=== PATIENT | female | born 1970 | race Caucasian/White ===

== ENCOUNTER → 2017-06-08 13:11 | Outpatient (POV) | payer BC, SELFPAY ==
[2017-06-08 13:23] VITALS: BP 145/100; PULSE 67; RESP 18; BMI 28.4
--- NOTE | 2017-06-08 13:26 | P.CONS_ITS ---
[facility] Pain Management SOAP Note Subjective:: This patient is a pleasant 47-year-old white female who we are treating for low back pain with lumbar radiculopathy symptoms. He recently had a lumbar sacral steroid injection which has helped her significantly as far as her pain and pain. She still has low back pain which is worse with cold weather. She is on tramadol which was given to her by Dr. Mirza. We will be happy to take over her tramadol and prescribe her tramadol 50 mg 1 tablet 3 times a day. I will give her 2 refills. Objective:: Alert and oriented ?3 patient does have a normal gait. Motor strength of the lower extremities is 5/5. There is no gross sensory deficit. 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 I will give her 2 refills. We will follow up with her in 3 months. If her pain worsens between now and then and she needs a repeat injection she is to call us in the pain clinic
--- NOTE | 2017-08-31 12:09 | PC.PHONENOTE ---
called in Rx for Tramadol HCL 50mg TID with 2 refills to [facility] pharmacy in [place]
== END ==
PROVIDERS: Family Provider Family Medicine; PCP Family Medicine; Visit Provider Anesthesiology
DX: M51.16 Intervertebral disc disorders with radiculopathy, lumbar region (principal)
CPT/HCPCS: 99212

== ENCOUNTER → 2017-09-06 14:00 | Outpatient (POV) | payer BC, SELFPAY ==
[2017-09-06 14:12] VITALS: BP 155/88; PULSE 66; RESP 18; O2SAT 97; BMI 38.9
--- NOTE | 2017-09-06 14:37 | HMH.PAINSOAP ---
[facility] Pain Management SOAP Note Subjective:: This patient is a pleasant 47-year-old white female who presents today for follow-up. Patient has had SI joint injections and lumbar epidural steroid injections with significant relief in the past. Patient is following up as an as-needed basis. Patient states that she receives up to 80% relief for SI joint injections for several months. She is interested in getting another round of SI joint injections. Patient is also being managed on tramadol 50 mg 1 p.o. 3 times daily. Patient denies side effects from this. Patient states she is doing well on her current regimen. 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 Patient states her pain is a 6 out of 10 today. She states it gets worse as the day goes on. She does sometimes have shooting pains in her legs. Resting seems to help. ROS General: no recent weight change, no fever, no sleep disturbances Respiratory: no cough, no shortness of air, no recurring pulmonary infections Cardiovascular/Peripheral Vascular: No chest pain, No palpitations, no edema, no shortness of breath. Gastrointestinal: no incontinence, normal bowel movements reported Genitourinary: no incontinence Musculoskeletal: Back pain, bilateral SI joint pain Psychiatric: normal mood/ affect, [denies depression], [denies anxiety] Neurological: [denies weakness in extremities], [denies balance issues] Objective:: Physical Exam General: Alert and oriented x3, no acute distress, pleasant and cooperative, [on room air] Lungs: Resps E/U, Symmetrical chest expansion, Eyes: PERRL Musculoskeletal: Flexion and extension of lumbar spine somewhat guarded secondary to pain, deep tendon reflexes normal, strength in upper and lower extremities [5/5], slightly antalgic gait noted, positive Rojas's test bilaterally, extreme point tenderness over bilateral SI joints. Neurological: speech clear, senior sustainability consultant equal, no gross sensory deficits Assessment:: Degenerative disc disease of the lumbar spine with lumbar radiculopathy and sacroiliitis Plan:: We will plan bilateral SI joint injections for this patient. She has done well with them in the past. Patient has tried and failed physical therapy, medications, anti-inflammatories. Patient is not on any anticoagulation. Patient is currently being managed with tramadol 50 mg 1 p.o. 3 times daily. Patient's Maynor #[id number] reviewed and appropriate. This note was dictated using voice recognition software and may contain errors or omissions
--- NOTE | 2017-09-06 14:41 | P.CONS_ITS ---
[facility] Pain Management SOAP Note Subjective:: This patient is a pleasant 47-year-old white female who presents today for follow-up. Patient has had SI joint injections and lumbar epidural steroid injections with significant relief in the past. Patient is following up as an as-needed basis. Patient states that she receives up to 80% relief for SI joint injections for several months. She is interested in getting another round of SI joint injections. Patient is also being managed on tramadol 50 mg 1 p.o. 3 times daily. Patient denies side effects from this. Patient states she is doing well on her current regimen. 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 Patient states her pain is a 6 out of 10 today. She states it gets worse as the day goes on. She does sometimes have shooting pains in her legs. Resting seems to help. ROS General: no recent weight change, no fever, no sleep disturbances Respiratory: no cough, no shortness of air, no recurring pulmonary infections Cardiovascular/Peripheral Vascular: No chest pain, No palpitations, no edema, no shortness of breath. Gastrointestinal: no incontinence, normal bowel movements reported Genitourinary: no incontinence Musculoskeletal: Back pain, bilateral SI joint pain Psychiatric: normal mood/ affect, [denies depression], [denies anxiety] Neurological: [denies weakness in extremities], [denies balance issues] Objective:: Physical Exam General: Alert and oriented x3, no acute distress, pleasant and cooperative, [ on room air] Lungs: Resps E/U, Symmetrical chest expansion, Eyes: PERRL Musculoskeletal: Flexion and extension of lumbar spine somewhat guarded secondary to pain, deep tendon reflexes normal, strength in upper and lower extremities [5/5], slightly antalgic gait noted, positive Rojas's test bilaterally, extreme point tenderness over bilateral SI joints. Neurological: speech clear, laboratory apparatus glass grinder equal, no gross sensory deficits Assessment:: Degenerative disc disease of the lumbar spine with lumbar radiculopathy and sacroiliitis Plan:: We will plan bilateral SI joint injections for this patient. She has done well with them in the past. Patient has tried and failed physical therapy, medications, anti-inflammatories. Patient is not on any anticoagulation. Patient is currently being managed with tramadol 50 mg 1 p.o. 3 times daily. Patient's Maynor #[id number] reviewed and appropriate. This note was dictated using voice recognition software and may contain errors or omissions
== END ==
PROVIDERS: Family Provider Family Medicine; PCP Family Medicine; Visit Provider Clinical Nurse Specialist Family Health
DX: M54.16 Radiculopathy, lumbar region (principal); M46.1 Sacroiliitis, not elsewhere classified
CPT/HCPCS: 99212

== ENCOUNTER 2017-09-15 04:27 | Observation (INO) ==
[2017-09-15 04:52] LABS: Basophils # 0.1 K/mm3 (0-0.2); Basophils % 0.7 % (0.1-2.0); Eosinophils # 0.1 K/mm3 (0.0-0.4); Hematocrit 45.3 % (37.0-47.0); Hemoglobin 14.6 g/dL (12.2-16.2); Lymphocytes # 3.6 K/mm3 (0.7-4.5); Lymphocytes % 49.7 K/mm3 (10-50); Mean Corpuscular HGB Conc 32.3 g/dL (31.8-35.4); Mean Corpuscular Hemoglobin 30.2 pg (27.0-31.2); Mean Corpuscular Volume 93.3 fl (81-99); Mean Platelet Volume 7.3 fl (7.4-10.4); Monocytes # 0.3 K/mm3 (0.1-1.0); Monocytes % 3.6 % (1.7-9.3); Neutrophils # 3.2 K/mm3 (1.8-7.8); Platelet Count 342 K/mm3 (142-424); Red Blood Count 4.86 M/mm3 (4.20-5.40); Red Cell Distribution Width 11.9 % (11.5-17.5); White Blood Count 7.2 K/mm3 (4.8-10.8)
[2017-09-15 05:15] LABS: Alanine Aminotransferase 38 U/L (12-78); Albumin Level 3.9 gm/dL (3.4-5.0); Alkaline Phosphatase 79 U/L (46-116); Anion Gap 12.2 mEq/L (5-15); Aspartate Amino Transferase 24 U/L (15-37); Bilirubin,Total 0.6 mg/dL (0.2-1.0); Blood Urea Nitrogen 19 mg/dL (7-18); Calcium 8.9 mg/dL (8.5-10.1); Carbon Dioxide 29 mmol/L (21.0-32.0); Chloride 105 mmol/L (98-107); Creatine Kinase 184 U/L (26-192); Globulin 3.8 gm/dl (1.3-3.2); Glucose 110 mg/dL (74-106); Potassium 4.2 mmoL/L (3.5-5.1); Sodium 142 mmol/L (136-145); Total Protein,Serum 7.7 gm/dL (6.4-8.2)
--- NOTE | 2017-09-15 06:16 | Emergency Department Note ---
ED Disposition Clinical Impression: Chest pain Qualifiers: Chest pain type: precordial pain Qualified Code(s): R07.2 - Precordial pain Disposition: Admitted as Observation Condition on Discharge: Good - Critical Care Critical Care Time: No Attestation: On 09/15/17, the high probability of a clinically significant, sudden or life threatening deterioration of the following system(s) required my full and direct attention, intervention and personal management. The time I documented below is in addition to time spent performing reported procedures but includes the following listed in this critical care notation. Medical Decision Making - Medical Records Medical records reviewed: Yes: I reviewed the patient's medical records. - Maynor Inquiry Pt receiving controlled substance: No Vital Signs: 09/15/17 04:29 09/15/17 05:46 09/15/17 06:28 Temperature 98 F Temperature Source Oral Pulse Rate [Right Brachial] 78 73 72 Respiratory Rate 20 14 16 Blood Pressure [Right Arm] 155/98 156/82 154/107 Blood Pressure Mean [Right Arm] 117 106 122 Blood Pressure Source [Right Arm] Automatic Cuff Automatic Cuff Automatic Cuff Blood Pressure Position [Right Arm] Supine Sitting Sitting 02 Sat by Pulse Oximetry 100 96 97 Oxygen Delivery Method Room Air Room Air Room Air - Lab Data Lab results reviewed: Yes: I reviewed the patient's lab results. Lab Results 09/15/17 04:38: WBC 7.2, RBC 4.86, Hgb 14.6, Hct 45.3, MCV 93.3, MCH 30.2, MCHC 32.3, RDW 11.9, Plt Count 342, MPV 7.3 L, Neut % (Auto) 44.0, Lymph % (Auto) 49.7, [place] % (Auto) 3.6, Eos % (Auto) 2.0, Baso % (Auto) 0.7, Neut # (Auto) 3.2 , Lymph # (Auto) 3.6, [place] # (Auto) 0.3, Eos # (Auto) 0.1, Baso # (Auto) 0.1 09/15/17 04:38: Sodium 142, Potassium 4.2, Chloride 105, Carbon Dioxide 29, Anion Gap 12.2, BUN 19 H, Creatinine 0.88, Estimated Creat Clear 119, Estimated GFR 68, Est GFR ( Amer) 83, Glucose 110 H, Calcium 8.9, Total Bilirubin 0.6, AST 24, ALT 38, Alkaline Phosphatase 79, Total Creatine Kinase 184, CK-MB ( CK-2) 1.4, CK-MB (CK-2) Rel Index 0.8, Troponin I < 0.02, Total Protein 7.7, Albumin 3.9, Globulin 3.8 H, Albumin/Globulin Ratio 1.0 L Result diagrams: 09/15/17 04:38 09/15/17 04:38 Orders (Tests/Meds): ED MEDICATIONS Generic Name Dose Route Start Last Admin Trade Name Freq PRN Reason Stop Dose Admin Nitroglycerin 0.4 mg 09/15/17 06:24 09/15/17 04:41 Nitrostat 0.4mg Sl Tablet SL 10/15/17 06:23 0.4 mg [id number] PRN Administration Chest Pain Discontinued Medications Generic Name Dose Route Start Last Admin Trade Name Freq PRN Reason Stop Dose Admin Aspirin 324 mg 09/15/17 06:24 09/15/17 04:40 Aspirin 81mg Chewable Tablet PO 09/15/17 06:25 324 mg ONCE ONE Administration Nitroglycerin 1 gm 09/15/17 06:20 09/15/17 06:26 Nitroglycerin 1 Inch Oint Udp TD 09/15/17 06:21 1 gm ONCE ONE Administration - Radiology Data #1 Image(s): Chest Image Reviewed: Yes I reviewed the patient's radiology image Preliminary Findings: Normal/NAD - ECG Data Tracing #1 I reviewed this ECG and interpreted as documented below: Normal Sinus Rhythm: Yes Ischemic changes: non-specific ST-T wave changes - Physician Consults Physician Consulted: coopre Reason -: Admission Chest Pain HPI - General Chief Complaint: Chest Pain Stated Complaint: CHEST PAIN Time Seen by Provider: 09/15/17 04:45 Mode of Arrival: Ambulatory Source of Information: Patient, Spouse, Medical Record Limitations: No Limitations Description of Symptoms (Recalled from ER Triage Doc. by RN): TIGHTNESS OF L CHEST - History of Present Illness HPI narrative: new onset of chest tightness with rad to lt upper ext with no known hx of cad MD complaint: chest pain indicative of cardiac Onset (ago): day(s) Duration: now resolved Activity at onset: awoke with symptoms Pain location: left chest Severity: moderate Quality: tightness Pain radiation: LUE Relieving factors: nitroglycerin Associated symptoms: dyspnea Risk Factors for CAD: Hypertension, Family Hx of CAD Treatments prior to or on arrival for Cardiac Chest Pain: none - YAHAIRA Score Non-Stemi Age of patient: Less than 65 yrs Number of risk factors for CAD: Presence of 3 or more Prior coronary artery stenosis(seen in coronary angiography): Less than 50% ST-Segment deviation on ECG (more than 1 min): Absent Prior aspirin intake: No ASA in the last 7 days Severe anginal chest pain: Two or more episodes in last 24 hours Elevated cardiac markers(CK-MB or troponin): Absent Non-Stemi Risk Score: 2 - Related Data On Oral Contraceptives: No Home Medications Medication Instructions Recorded Confirmed Tramadol HCl [Ultram Take Home 50 mg PO DIRECTED 09/06/17 09/15/17 Pack 50mg (10)] Allergies Allergy/AdvReac Type Severity Reaction Status Date / Time No Known Allergies Allergy Unverified 05/25/17 15:[address] [facility] History I have reviewed the patient's past medical history: Yes Medical History: Denies:: Cancer, Diabetes Mellitus Type 1, Diabetes Mellitus Type 2, Internal Pacemaker, MRSA Other Surgeries: No: Pacemaker Amputation: No - Social History Educational Level: Completed College Smoking Status: Never smoker Alcohol Intake: never - Psychiatric History Expresses thoughts of harming self/others: None Suicide Plan Description: No Plan Para: 2 ROS Obtained: Yes All systems reviewed & no additional complaints - Constitutional Constitutional: Denies fever(s) - Eyes Eyes: Denies change in vision - ENT Ears, Nose, Mouth, and Throat: Denies sore throat - Cardiovascular Cardiovascular: Reports chest pain at rest, Reports radiating jaw, neck or arm pain - Respiratory Respiratory: No cough - Gastrointestinal Gastrointestingal: Denies: abdominal pain - Genitourinary Female Genitourinary: Denies flank pain - Musculoskeletal Musculoskeletal: Denies joint pain - Integumentary/Breasts Skin/Breast: Denies rash - Neurologic Neurologic: Denies seizure-like activity Physical Exam - General General appearance: in no apparent distress - Head Head exam: normocephalic - Eye Eye exam: Present: PERRL, EOMI - ENT ENT exam: Present: mucous membranes moist - Neck Neck exam: Present: trachea midline - Respiratory Respiratory exam: Present: normal lung sounds bilaterally. Absent: respiratory distress - Cardiovascular Cardiovascular exam: Present: regular rate, systolic murmur - Abdominal Exam Abdominal exam: Present: soft - Neurological Exam Neurological exam: Present: alert, oriented X3, CN II-XII intact - Skin Skin exam: Absent: rash
--- NOTE | 2017-09-15 08:30 | History & Physical Report ---
*Admission Date: 09/15/17 <Farzana Win 09/15/17 08:41> *Chief complaint: chest pain <Farzana Win 09/15/17 08:41> *History of present illness: Ms. Mays is a 47yo female who began having midsternal CP with left arm numbness and tingling two days ago during the night. She states Wednesday night it lasted a few hours and resolved on its own. Last night it returned at 3am and lasted 3-4 hours, therefore she presented to the ER. She states she was having chest palpitations and some SOA along with the CP. She has been having a SEE and some heartburn as well. She is concerned that her zoloft may be causing these symptoms. She states she was just started on it on 09/07/17 and these symptoms started when she increased the dose to a whole tablet. She will be admitted for serial enzymes and EKG's and a cardiology consult has been made by the ER. <Farzana Win 09/15/17 08:41> [facility] History Medical History: Reports:: Hypertension, Migraine Denies:: Cancer, Diabetes Mellitus Type 1, Diabetes Mellitus Type 2, Internal Pacemaker, MRSA <Farzana Win 09/15/17 08:41> Other Surgeries: Yes: , Tubal Ligation. No: Pacemaker <Farzana Win 09/15/17 08:41> Amputation: No <Farzana Win 09/15/17 08:41> - *Social History Educational Level: Completed College <Farzana Win 09/15/17 08:41> Smoking Status: Never smoker <Farzana Win 09/15/17 08:41> Alcohol Intake: never <Farzana Win 09/15/17 08:41> - Psychiatric History Expresses thoughts of harming self/others: None <Farzana Win 09/15/17 08: 41> Suicide Plan Description: No Plan <Farzana Win 09/15/17 08:41> *Family Hx:: Cancer, Hypertension <Farzana Win 09/15/17 08:41> Para: 2 <Farzana Win 09/15/17 08:41> Review of Systems - Constitutional Reports headache(s), Denies body ache(s), Denies chills, Denies fever(s) < Farzana Win 09/15/17 08:41> - Eyes Denies blurry vision, Denies double vision <Farzana Win 09/15/17 08:41> - ENT Denies nasal congestion, Denies sore throat <Farzana Win 09/15/17 08:41> - *Cardiovascular Reports chest pain, Reports shortness of breath, Reports radiating jaw, neck or arm pain, Reports fast heart rate <Farzana Win 09/15/17 08:41> - *Respiratory Reports shortness of breath, Denies cough <Farzana Win 09/15/17 08:41> - *Gastrointestinal Reports heartburn, Denies abdominal pain, Denies loose stools, Denies nausea, Denies vomiting <Farzana Win 09/15/17 08:41> - *Genitourinary Denies difficulty urinating, Denies painful urination <Farzana Win 08:41> - *Musculoskeletal Denies joint pain <Farzana Win 09/15/17 08:41> - *Neurologic Reports headache(s), Reports dizziness, Denies seizure-like activity <Farzana Win 09/15/17 08:41> Meds Home Medications Medication Instructions Recorded Confirmed Type Tramadol HCl [Ultram Take Home 50 mg PO TIDP PRN 09/06/17 09/15/17 History Pack 50mg (10)] Bisoprol/Hydrochlorothiazide 1 tab PO DAILY 09/15/17 09/15/17 History [Bisoprolol-Hctz 2.5-6.25 mg Tb] Meloxicam [Meloxicam] 15 mg PO DAILY 09/15/17 09/15/17 History Sertraline HCl [Zoloft 50mg tablet] 50 mg PO DAILY 09/15/17 09/15/17 History <Shamar Mirza - 09/15/17 09:33> Allergies Allergy/AdvReac Type Severity Reaction Status Date / Time No Known Allergies Allergy Unverified 05/25/17 15:01 <Shamar Mirza - 09/15/17 09:33> Exam Vital signs and Labs for Last 24 Hours: Temp Pulse Resp BP Pulse Ox 97.8 F 82 18 121/79 97 09/15/17 07:28 09/15/17 07:28 09/15/17 07:28 09/15/17 07:28 09/15/17 06:28 <OdellShamar garrido - 09/15/17 09:33> Temp Pulse Resp BP Pulse Ox 97.8 F 82 18 121/79 97 09/15/17 07:28 09/15/17 07:28 09/15/17 07:28 09/15/17 07:28 09/15/17 06:28 Lab Results 09/15/17 04:38: WBC 7.2, RBC 4.86, Hgb 14.6, Hct 45.3, MCV 93.3, MCH 30.2, MCHC 32.3, RDW 11.9, Plt Count 342, MPV 7.3 L, Neut % (Auto) 44.0, Lymph % (Auto) 49.7, [place] % (Auto) 3.6, Eos % (Auto) 2.0, Baso % (Auto) 0.7, Neut # (Auto) 3.2 , Lymph # (Auto) 3.6, [place] # (Auto) 0.3, Eos # (Auto) 0.1, Baso # (Auto) 0.1 09/15/17 04:38: Sodium 142, Potassium 4.2, Chloride 105, Carbon Dioxide 29, Anion Gap 12.2, BUN 19 H, Creatinine 0.88, Estimated Creat Clear 119, Estimated GFR 68, Est GFR ( Amer) 83, Glucose 110 H, Calcium 8.9, Total Bilirubin 0.6, AST 24, ALT 38, Alkaline Phosphatase 79, Total Creatine Kinase 184, CK-MB ( CK-2) 1.4, CK-MB (CK-2) Rel Index 0.8, Troponin I < 0.02, Total Protein 7.7, Albumin 3.9, Globulin 3.8 H, Albumin/Globulin Ratio 1.0 L <Farzana Win - 09/15/17 08:41> I & O for Last 24 hours: Intake & Output 09/12/17 09/13/17 09/14/17 09/15/17 11:59 11:59 11:59 11:59 Intake Total 1050 / 1050 Balance 1050 / 1050 Weight 215 lb <Shamar Mirza - 09/15/17 09:33> Intake & Output 09/12/17 09/13/17 09/14/17 09/15/17 11:59 11:59 11:59 11:59 Intake Total 1050 / 1050 Balance 1050 / 1050 <Farzana Win 09/15/17 08:41> - Constitutional no acute distress <Farzana Win 09/15/17 08:41> - *Routine HEENT Exam Head: Present: normocephalic, atraumatic <Farzana Win 09/15/17 08:41> Eye: Present: EOMI, PERRL <Farzana Win 09/15/17 08:41> ENT: Present: mucous membranes moist <Farzana Win 09/15/17 08:41> - *Routine Neck Exam Present: supple, full ROM. Absent: carotid bruit <Farzana Win 09/15/17 08 :41> - *Routine Respiratory Exam Present: CTA bilaterally <Farzana Win 09/15/17 08:41> - *Routine Cardiovascular Exam Present: RRR <Farzana Win 09/15/17 08:41> - *Routine Abdominal Exam Present: soft, normoactive bowel sounds. Absent: tenderness <Farzana Win 09/15/17 08:41> - *Routine Extremities Exam Absent: edema <Farzana Win 09/15/17 08:41> - *Routine Skin Exam Present: intact <Farzana Win 09/15/17 08:41> - *Routine Neurological Exam Present: alert, oriented X3, CN II-XII intact. Absent: sensory deficit, motor deficit <Farzana Win 09/15/17 08:41> H&P: Result - Impressions CXR - nothing acute Echo - pending <Farzana Win 09/15/17 08:41> Assessment and Plan (1) Chest pain Current visit: Yes Status: Acute Qualifiers: Chest pain type: precordial pain Qualified Code(s): R07.2 - Precordial pain Category: Medical Code(s): R07.9 - Chest pain, unspecified (2) Hypertension Current visit: Yes Status: Chronic Category: Medical Code(s): I10 - Essential (primary) hypertension (3) Anxiety Current visit: Yes Status: Chronic Category: Medical Code(s): F41.9 - Anxiety disorder, unspecified <Shamar Mirza - 09/15/17 09:33> (1) Chest pain Current visit: Yes Status: Acute Qualifiers: Chest pain type: precordial pain Qualified Code(s): R07.2 - Precordial pain Category: Medical Code(s): R07.9 - Chest pain, unspecified (2) Hypertension Current visit: Yes Status: Chronic Category: Medical Code(s): I10 - Essential (primary) hypertension (3) Anxiety Current visit: Yes Status: Chronic Category: Medical Code(s): F41.9 - Anxiety disorder, unspecified <Farzana Win - 09/15/17 08:22> - Assessment and plan all Dx Assessment and Plan for all problems:: Saw patient, agree with above note. <Shamar Mirza - 09/15/17 09:33> Pt is currently getting an echo. Cardiology has been consulted. <Farzana Win - 09/15/17 08:41>
--- NOTE | 2017-09-15 08:31 | Pharmacy Consult Notes ---
[facility] Pharmacy VTE Monitoring - Patient Demographics Admission date: 09/15/17 Report Date: 09/15/17 Time: 08:31 Allergies/Adverse Reactions: Patient Allergies No Known Allergies Allergy (Unverified 05/25/17 15:01) Height: 1.6 m Weight: 97.522 kg Patient Problems: Current Active Problems Chest pain (Acute) - VTE Risk Labs: VTE Related Lab Results Hgb 14.6 g/dL (12.2-16.2) 09/15/17 04:38 Hct 45.3 % (37.0-47.0) 09/15/17 04:38 Plt Count 342 K/mm3 (142-424) 09/15/17 04:38 BUN 19 mg/dL (7-18) H 09/15/17 04:38 Creatinine 0.88 mg/dL (0.55-1.02) 09/15/17 04:38 Estimated Creat Clear 119 mL/min (0-300) 09/15/17 04:38 Clinical Trial Participant: No - Prophylaxis VTE Prophylaxis Ordered?: Yes Types of VTE Prophylaxis: TEDS Knee High
--- NOTE | 2017-09-15 10:03 | Consult Report ---
History of Present Illness Consult date: 09/15/17 Requesting physician: Shamar Mirza Consult reason: chest pain Chief complaint: chest pain Additional Medical History:: 1. Hypertension History of present illness: Ms. Mays is a 47yo female who began having midsternal CP with left arm numbness and tingling two days ago during the night. She states Wednesday night it lasted a few hours and resolved on its own. Last night it returned at 3am and lasted 3-4 hours, therefore she presented to the ER. She states she was having chest palpitations and some SOA along with the CP. She has been having a SEE and some heartburn as well. She is concerned that her zoloft may be causing these symptoms. She states she was just started on it on 09/07/17 and these symptoms started when she increased the dose to a whole tablet. She will be admitted for serial enzymes and EKG's and a cardiology consult has been made by the ER. The above per Farzana Win PA-C for Dr. Mirza. Patient denies history of diabetes, hyperlipidemia, tobacco use or significant family history of heart disease. Has any recent exertional chest pain or shortness of breath. She does have a history of hypertension and takes bisoprolol 2.5 with 6.25 mg of hydrochlorothiazide daily. [facility] History Medical History: Reports:: Hypertension, Migraine Denies:: Cancer, Diabetes Mellitus Type 1, Diabetes Mellitus Type 2, Internal Pacemaker, MRSA Other Surgeries: Yes: , Tubal Ligation. No: Pacemaker Amputation: No Fractures: No - *Social History Educational Level: Completed College Smoking Status: Never smoker Alcohol Intake: never Occupational Status: employed Housing: house Household Members: spouse, children - Psychiatric History Expresses thoughts of harming self/others: None Suicide Plan Description: No Plan *Family Hx:: Cancer, Hypertension Para: 2 Meds Home Medications Medication Instructions Recorded Confirmed Type Tramadol HCl [Ultram Take Home 50 mg PO TIDP PRN 09/06/17 09/15/17 History Pack 50mg (10)] Bisoprol/Hydrochlorothiazide 1 tab PO DAILY 09/15/17 09/15/17 History [Bisoprolol-Hctz 2.5-6.25 mg Tb] Meloxicam [Meloxicam] 15 mg PO DAILY 09/15/17 09/15/17 History Sertraline HCl [Zoloft 50mg tablet] 50 mg PO DAILY 09/15/17 09/15/17 History Allergies Allergy/AdvReac Type Severity Reaction Status Date / Time No Known Allergies Allergy Unverified 05/25/17 15:01 Review of Systems - *Cardiovascular Reports chest pain, Denies shortness of breath - *Respiratory Denies shortness of breath - *Gastrointestinal Reports nausea - *Neurologic Reports headache(s), Reports dizziness, Denies seizure-like activity Exam Vital signs and Labs for Last 24 Hours: Temp Pulse Resp BP Pulse Ox 97.7 F 80 20 102/68 97 09/15/17 09:33 09/15/17 09:33 09/15/17 09:33 09/15/17 09:33 09/15/17 09:33 I & O for Last 24 hours: Intake & Output 09/12/17 09/13/17 09/14/17 09/15/17 11:59 11:59 11:59 11:59 Intake Total 1050 / 1050 Balance 1050 / 1050 Weight 215 lb - *Routine Neck Exam Absent: JVD, carotid bruit - *Routine Respiratory Exam Present: CTA bilaterally - *Routine Cardiovascular Exam Present: RRR. Absent: murmur, gallop - *Routine Extremities Exam Absent: edema - *Routine Neurological Exam Present: alert, oriented X3, moving all extremities Assessment and Plan (1) Chest pain Current visit: Yes Status: Acute Qualifiers: Chest pain type: precordial pain Qualified Code(s): R07.2 - Precordial pain Category: Medical Code(s): R07.9 - Chest pain, unspecified (2) Hypertension Current visit: Yes Status: Chronic Category: Medical Code(s): I10 - Essential (primary) hypertension (3) Anxiety Current visit: Yes Status: Chronic Category: Medical Code(s): F41.9 - Anxiety disorder, unspecified - Assessment and plan all Dx Assessment and Plan for all problems:: 1. Patient has received a headache from the nitroglycerin. I will remove the nitroglycerin paste. Her troponin has returned normal thus far and the EKG shows no evidence of acute coronary syndrome. Preliminary echocardiogram shows preserved left ventricular ejection fraction. Patient's YAHAIRA score is 1 and would recommend proceeding with stress Myoview today. She has received some Zofran which has helped with the nausea.
[2017-09-16 06:47] LABS: Basophils % 0.5 % (0.1-2.0); Eosinophils # 0.1 K/mm3 (0.0-0.4); Eosinophils % 1.4 % (0.1-12.0); Hematocrit 42.8 % (37.0-47.0); Hemoglobin 14.1 g/dL (12.2-16.2); Lymphocytes # 2.4 K/mm3 (0.7-4.5); Lymphocytes % 31.8 K/mm3 (10-50); Mean Corpuscular Hemoglobin 30.8 pg (27.0-31.2); Mean Corpuscular Volume 93.2 fl (81-99); Mean Platelet Volume 7.3 fl (7.4-10.4); Monocytes # 0.3 K/mm3 (0.1-1.0); Monocytes % 4.2 % (1.7-9.3); Neutrophils # 4.8 K/mm3 (1.8-7.8); Neutrophils % 62.1 % (37.0-80.0); Platelet Count 322 K/mm3 (142-424); Red Blood Count 4.59 M/mm3 (4.20-5.40); Red Cell Distribution Width 11.9 % (11.5-17.5); White Blood Count 7.7 K/mm3 (4.8-10.8)
[2017-09-16 06:56] LABS: Anion Gap 13.2 mEq/L (5-15); Chol/HDL Ratio 3.1 (1-3.5); Potassium 4.2 mmoL/L (3.5-5.1)
--- NOTE | 2017-09-16 12:25 | Progress Note ---
<Farzana Win - Last Filed: 09/16/17 12:24> Internal Medicine - PN: Subj *Date: 09/16/17 *Time: 12:24 Interval history: Patient states she is feeling well at this time. She had a heart cath this morning that showed normal coronaries. She denies any chest pain or shortness of breath. She is anxious to go home. Exam Vital signs and Labs for Last 24 Hours: Temp Pulse Resp BP Pulse Ox 98.5 F 66 16 137/84 96 09/16/17 04:00 09/16/17 09:24 09/16/17 09:24 09/16/17 09:24 09/16/17 09:24 Laboratory Results - last 24 hr 09/16/17 06:10: WBC 7.7, RBC 4.59, Hgb 14.1, Hct 42.8, MCV 93.2, MCH 30.8, MCHC 33.0, RDW 11.9, Plt Count 322, MPV 7.3 L, Neut % (Auto) 62.1, Lymph % (Auto) 31.8, [place] % (Auto) 4.2, Eos % (Auto) 1.4, Baso % (Auto) 0.5, Neut # (Auto) 4.8 , Lymph # (Auto) 2.4, [place] # (Auto) 0.3, Eos # (Auto) 0.1, Baso # (Auto) 0.0 09/16/17 06:10: Sodium 142, Potassium 4.2, Chloride 107, Carbon Dioxide 26, Anion Gap 13.2, BUN 16, Creatinine 1.02, Estimated Creat Clear 103, Estimated GFR 58 L, Est GFR ( Amer) 70, Glucose 111 H, Magnesium 1.9, Triglycerides 138, Cholesterol 199, LDL Cholesterol 106, VLDL Cholesterol 28, HDL Cholesterol 65, Cholesterol/HDL Ratio 3.1 I & O for Last 24 hours: Intake & Output 09/14/17 09/15/17 09/16/17 09/17/17 11:59 11:59 11:59 11:59 Intake Total 1290 / 1290 1209 / 1209 Output Total 400 / 400 Balance 1290 / 1290 809 / 809 Weight 215 lb - Constitutional no acute distress - *Routine Respiratory Exam Present: CTA bilaterally - *Routine Cardiovascular Exam Present: RRR - *Routine Abdominal Exam Present: soft, normoactive bowel sounds. Absent: tenderness - *Routine Extremities Exam Absent: edema Assessment and Plan (1) Chest pain Current visit: Yes Status: Acute Qualifiers: Chest pain type: precordial pain Qualified Code(s): R07.2 - Precordial pain Category: Medical Code(s): R07.9 - Chest pain, unspecified (2) Hypertension Current visit: Yes Status: Chronic Category: Medical Code(s): I10 - Essential (primary) hypertension (3) Anxiety Current visit: Yes Status: Chronic Category: Medical Code(s): F41.9 - Anxiety disorder, unspecified - Assessment and plan all Dx Assessment and Plan for all problems:: Heart cath was normal. Possible discharge home today. Will discuss with Dr. Mirza. <Shamar Mirza - Last Filed: 09/16/17 12:56> Internal Medicine - PN: Subj *Date: 09/16/17 *Time: 12:55 Exam Vital signs and Labs for Last 24 Hours: Temp Pulse Resp BP Pulse Ox 98.5 F 66 16 137/84 96 09/16/17 04:00 09/16/17 09:24 09/16/17 09:24 09/16/17 09:24 09/16/17 09:24 Laboratory Results - last 24 hr 09/16/17 06:10: WBC 7.7, RBC 4.59, Hgb 14.1, Hct 42.8, MCV 93.2, MCH 30.8, MCHC 33.0, RDW 11.9, Plt Count 322, MPV 7.3 L, Neut % (Auto) 62.1, Lymph % (Auto) 31.8, [place] % (Auto) 4.2, Eos % (Auto) 1.4, Baso % (Auto) 0.5, Neut # (Auto) 4.8 , Lymph # (Auto) 2.4, [place] # (Auto) 0.3, Eos # (Auto) 0.1, Baso # (Auto) 0.0 09/16/17 06:10: Sodium 142, Potassium 4.2, Chloride 107, Carbon Dioxide 26, Anion Gap 13.2, BUN 16, Creatinine 1.02, Estimated Creat Clear 103, Estimated GFR 58 L, Est GFR ( Amer) 70, Glucose 111 H, Magnesium 1.9, Triglycerides 138, Cholesterol 199, LDL Cholesterol 106, VLDL Cholesterol 28, HDL Cholesterol 65, Cholesterol/HDL Ratio 3.1 I & O for Last 24 hours: Intake & Output 09/14/17 09/15/17 09/16/17 09/17/17 11:59 11:59 11:59 11:59 Intake Total 1290 / 1290 1209 / 1209 Output Total 400 / 400 Balance 1290 / 1290 809 / 809 Weight 215 lb Assessment and Plan (1) Chest pain Current visit: Yes Status: Resolved Qualifiers: Chest pain type: precordial pain Qualified Code(s): R07.2 - Precordial pain Category: Medical Code(s): R07.9 - Chest pain, unspecified (2) Hypertension Current visit: Yes Status: Chronic Category: Medical Code(s): I10 - Essential (primary) hypertension (3) Anxiety Current visit: Yes Status: Chronic Category: Medical Code(s): F41.9 - Anxiety disorder, unspecified - Assessment and plan all Dx Assessment and Plan for all problems:: Saw patient, agree with above note. OK to discharge home today.
[2017-09-16 14:16] VITALS: BP 148/91
--- NOTE | 2017-09-16 16:47 | Cardiology Report ---
PROCEDURE: 2-D M-mode and color Doppler study INDICATIONS FOR THE TEST: Chest pain+ COPD Heart Murmur Tobacco Smoking Palpitations+ Fatigue+ Syncope Edema Hypertension+Diabetes Mellitus Rheumatic Fever SOB MONTES Obesity Hyperlipidemia Family History HD Additional History chest pressure radiating down left arm, dizziness PATIENT INFORMATION HEIGHT: 63 WEIGHT: 215 GENDER: Female B/P: 155/98 2-D/M-MODE INTERPRETATION: 2-D MEASUREMENTS OBSERVED VALUES IN CMS Right Ventricular Dimension (RVDd) 2.3 Interventricular Septum (Thickness)(IVsd) 1.1 Left Ventricular Internal Dimensions(LVIDd) 4.8 Left Ventricular Posterior Wall (Thickness)(LVPWd) 1.0 Aortic Root 2.7 Aortic Cusp Separation 2.0 Left Atrial Dimensions (LAD) 3.5 2D 1. The left atrium is mildly enlarged, left ventricle is normal size, visually estimated ejection fraction 55% with no obvious regional wall motion abnormality. 2. The right ventricle are normal size and contractility. 3. The aortic valve is minimally thickened and fibrosed. 4. The mitral and tricuspid valve are grossly normal. 5. The pulmonic valve is poorly visualized. 6. No significant pericardial effusion noted. DOPPLER INTERROGATION: Doppler interrogation of the aortic, mitral and tricuspid valve reveals presence of mild mitral and tricuspid regurgitation, tricuspid and jet is insufficient for calculation of the right ventricular systolic pressure, diastolic parameters are inconclusive. CONCLUSION: 1. Mildly enlarged left atrium, normal left ventricular size, visually estimated ejection fraction 55% with no obvious regional wall motion abnormality, diastolic parameters are inconclusive. 2. Mild mitral and tricuspid regurgitation 3. No significant pericardial effusion noted.
--- NOTE | 2017-09-16 20:53 | Discharge Summary ---
General - General Admission date: 09/15/17 Discharge date: 09/16/17 HPI HPI: Ms. Mays is a 47yo female who began having midsternal CP with left arm numbness and tingling two days ago during the night. She states Wednesday night it lasted a few hours and resolved on its own. Last night it returned at 3am and lasted 3-4 hours, therefore she presented to the ER. She states she was having chest palpitations and some SOA along with the CP. She has been having a SEE and some heartburn as well. She is concerned that her zoloft may be causing these symptoms. She states she was just started on it on 09/07/17 and these symptoms started when she increased the dose to a whole tablet. She will be admitted for serial enzymes and EKG's and a cardiology consult has been made by the ER. Hospital Course Hospital Course: The patient's echo showed an EF of 55%. Cardiology ordered a stress test and it showed a normal LVEF with reverse redistribution of the paul-septal area. In light of the abnormal stress test, cardiology recommended a heart cath. The patient had the heart cath and it showed normal coronaries. Her CP resolved and she was anxious to go home. She was stable to be discharged home on her normal home medications and will f/u in the office. Objective Vital signs: Temp Pulse Resp BP Pulse Ox 97.1 F L 68 18 148/91 99 09/16/17 13:15 09/16/17 13:15 09/16/17 13:15 09/16/17 13:15 09/16/17 09:45 Narrative: - Constitutional no acute distress - *Routine HEENT Exam Head: Present: normocephalic, atraumatic Eye: Present: EOMI, PERRL ENT: Present: mucous membranes moist - *Routine Neck Exam Present: supple, full ROM. Absent: carotid bruit - *Routine Respiratory Exam Present: CTA bilaterally - *Routine Cardiovascular Exam Present: RRR - *Routine Abdominal Exam Present: soft, normoactive bowel sounds. Absent: tenderness - *Routine Extremities Exam Absent: edema - *Routine Skin Exam Present: intact - *Routine Neurological Exam Present: alert, oriented X3, CN II-XII intact. Absent: sensory deficit, motor deficit Results Labs on day of discharge: Labs from last 24 hours 09/16/17 09/16/17 06:10 06:10 WBC 7.7 RBC 4.59 Hgb 14.1 Hct 42.8 MCV 93.2 MCH 30.8 MCHC 33.0 RDW 11.9 Plt Count 322 MPV 7.3 L Neut % (Auto) 62.1 Lymph % (Auto) 31.8 [place] % (Auto) 4.2 Eos % (Auto) 1.4 Baso % (Auto) 0.5 Neut # (Auto) 4.8 Lymph # (Auto) 2.4 [place] # (Auto) 0.3 Eos # (Auto) 0.1 Baso # (Auto) 0.0 Sodium 142 Potassium 4.2 Chloride 107 Carbon Dioxide 26 Anion Gap 13.2 BUN 16 Creatinine 1.02 Estimated Creat Clear 103 Estimated GFR 58 L Est GFR ( Amer) 70 Glucose 111 H Magnesium 1.9 Triglycerides 138 Cholesterol 199 LDL Cholesterol 106 VLDL Cholesterol 28 HDL Cholesterol 65 Cholesterol/HDL Ratio 3.1 DS: Diagnosis - Discharge Diagnosis (1) Chest pain Status: Resolved (2) Hypertension Status: Chronic (3) Anxiety Status: Chronic Discharge Plan - Patient Discharge Instructions ACTIVITY: Continue current activity (needs post cath restrictions) DIET: continue same diet Additional Instructions: Continue same diet and activity. Patient Instructions: High Blood Pressure, DI for Cardiac Catheterization - Follow up Plan Follow up with: Shamar Mirza MD [Primary Care Provider] - 09/21/17 Disposition: Home, Self-Detention Medications: Home Medications Medication Instructions Recorded Confirmed Type Tramadol HCl [Ultram Take Home 50 mg PO TIDP PRN 09/06/17 09/15/17 History Pack 50mg (10)] Bisoprol/Hydrochlorothiazide 1 tab PO DAILY 09/15/17 09/15/17 History [Bisoprolol-Hctz 2.5-6.25 mg Tb] Meloxicam 15 mg PO DAILY 09/15/17 09/15/17 History Sertraline HCl [Zoloft 50mg tablet] 50 mg PO DAILY 09/15/17 09/15/17 History Prescriptions/Medication Reconciliation: Continue Tramadol HCl [Ultram Take Home Pack 50mg (10)] 50 mg PO TIDP PRN PRN Reason: PAIN Sertraline HCl [Zoloft 50mg tablet] 50 mg PO DAILY Bisoprol/Hydrochlorothiazide [Bisoprolol-Hctz 2.5-6.25 mg Tb] 1 tab PO DAILY Meloxicam 15 mg PO DAILY
== END 2017-09-16 13:50 | disposition home or self-care (01) ==
LOC: ER 04:27 → ICU 04:27 → 2ND 08:49
PROVIDERS: ADMIT Family Medicine; ATTEND Family Medicine

== ENCOUNTER → 2017-10-11 14:31 | Outpatient (POV) | payer BC, SELFPAY | PROVIDERS: Family Provider Family Medicine; PCP Family Medicine; Visit Provider Specialist | DX: R20.0 Anesthesia of skin (principal) | CPT/HCPCS: 95886; 95909 ==

== ENCOUNTER → 2017-10-18 14:16 | Outpatient (POV) | payer BC, SELFPAY ==
[2017-10-18 14:25] VITALS: BP 144/74; PULSE 63; RESP 18; O2SAT 99; BMI 36.0
--- NOTE | 2017-10-18 15:38 | HMH.PAINSOAP ---
[facility] Pain Management SOAP Note Subjective:: Is a pleasant 47-year-old white female we are treating for bilateral hip and back pain. Patient is status post bilateral SI joint injection. Patient states she is 90% better. Patient states that she is having some low back pain. Patient is interested in getting a lumbar epidural steroid injection. Patient has had these in the past with 80-90% relief for several months. Patient is interested in doing this in the future. She rates her pain a foreign today. Patient also takes tramadol 50 mg 1 p.o. 3 times daily. Patient's MAJOR #[id number] reviewed and appropriate. Patient denies any side effects to the medication. ROS General: no recent weight change, no fever, no sleep disturbances Respiratory: no cough, no shortness of air, no recurring pulmonary infections Cardiovascular/Peripheral Vascular: No chest pain, No palpitations, no edema, no shortness of breath. Gastrointestinal: no incontinence, normal bowel movements reported Genitourinary: no incontinence Musculoskeletal: Bilateral SI joint pain, low back pain Psychiatric: normal mood/ affect Neurological: [denies weakness in extremities], [denies balance issues] Objective:: Physical Exam General: Alert and oriented x3, no acute distress, pleasant and cooperative, [on room air] Lungs: Resps E/U, Symmetrical chest expansion, Eyes: PERRL Musculoskeletal: Flexion and extension of lumbar spine somewhat guarded secondary to pain, deep tendon reflexes normal, strength in upper and lower extremities [5/5], antalgic gait noted, positive straight leg raise test at 30? 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 Patient has gotten 80% relief from it for several months previously. Patient is still doing a home stretching regimen. Patient's tried and failed medications, anti-inflammatories. This note was dictated using voice recognition software and may contain errors or omissions
--- NOTE | 2017-10-18 15:41 | P.CONS_ITS ---
[facility] Pain Management SOAP Note Subjective:: Is a pleasant 47-year-old white female we are treating for bilateral hip and back pain. Patient is status post bilateral SI joint injection. Patient states she is 90% better. Patient states that she is having some low back pain. Patient is interested in getting a lumbar epidural steroid injection. Patient has had these in the past with 80-90% relief for several months. Patient is interested in doing this in the future. She rates her pain a foreign today. Patient also takes tramadol 50 mg 1 p.o. 3 times daily. Patient 's MAJOR #[id number] reviewed and appropriate. Patient denies any side effects to the medication. ROS General: no recent weight change, no fever, no sleep disturbances Respiratory: no cough, no shortness of air, no recurring pulmonary infections Cardiovascular/Peripheral Vascular: No chest pain, No palpitations, no edema, no shortness of breath. Gastrointestinal: no incontinence, normal bowel movements reported Genitourinary: no incontinence Musculoskeletal: Bilateral SI joint pain, low back pain Psychiatric: normal mood/ affect Neurological: [denies weakness in extremities], [denies balance issues] Objective:: Physical Exam General: Alert and oriented x3, no acute distress, pleasant and cooperative, [ on room air] Lungs: Resps E/U, Symmetrical chest expansion, Eyes: PERRL Musculoskeletal: Flexion and extension of lumbar spine somewhat guarded secondary to pain, deep tendon reflexes normal, strength in upper and lower extremities [5/5], antalgic gait noted, positive straight leg raise test at 30? 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 Patient has gotten 80% relief from it for several months previously. Patient is still doing a home stretching regimen. Patient's tried and failed medications, anti- inflammatories. This note was dictated using voice recognition software and may contain errors or omissions
== END ==
PROVIDERS: Family Provider Family Medicine; PCP Family Medicine; Visit Provider Clinical Nurse Specialist Family Health
DX: M54.16 Radiculopathy, lumbar region (principal)
CPT/HCPCS: 99212

== ENCOUNTER → 2017-11-29 11:04 | Outpatient (POV) | payer BC, SELFPAY ==
[2017-11-29 11:52] VITALS: BP 140/67; PULSE 70; RESP 18; TEMP 36.4; O2SAT 96; BMI 38.0
--- NOTE | 2017-11-29 12:08 | P.CONS_ITS ---
[facility] Pain Management SOAP Note Subjective:: Patient is a pleasant 47-year-old white female who presents today for follow-up after lumbar epidural steroid injection. Patient states she is 90% better. Patient is having a little bit of SI issues however she is doing well at this time. 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 I believe given the efficacy of these injections for her this would be beneficial. Patient is currently on tramadol 50 mg 1 p.o. 3 times daily. She denies any side effects to this. Patient's MAJOR reviewed and appropriate. Patient states that after these injections he gets up to 2 months relief. Patient is still doing home stretching exercises. Patient is not on any anticoagulation therapy. ROS General: no recent weight change, no fever, no sleep disturbances Respiratory: no cough, no shortness of air, no recurring pulmonary infections Cardiovascular/Peripheral Vascular: No chest pain, No palpitations, no edema, no shortness of breath. Gastrointestinal: no incontinence, normal bowel movements reported Genitourinary: no incontinence Musculoskeletal: Bilateral SI joint pain, low back pain Psychiatric: normal mood/ affect Neurological: [denies weakness in extremities], [denies balance issues] Objective:: Physical Exam General: Alert and oriented x3, no acute distress, pleasant and cooperative, [ on room air] Lungs: Resps E/U, Symmetrical chest expansion, Eyes: PERRL Musculoskeletal: Flexion and extension of lumbar spine somewhat guarded secondary to pain, deep tendon reflexes normal, strength in upper and lower extremities [5/5], antalgic gait noted. 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 I believe that this would be beneficial. Patient gets up to 90% relief for several months with these injections. Patient is still doing a home stretching regimen. Patient's tried and failed anti- inflammatories and medications. I will follow-up with this patient after her injections. Patient's been instructed to call the office if she has any issues prior to this. This note was dictated using voice recognition software and may contain errors or omissions
--- NOTE | 2017-12-06 11:56 | PC.NURSE ---
TRAMADOL 50MG TID WITH 2 REFILLS CALLED INTO [facility] [place]
== END ==
PROVIDERS: Family Provider Family Medicine; PCP Family Medicine; Visit Provider Clinical Nurse Specialist Family Health
DX: M46.1 Sacroiliitis, not elsewhere classified (principal)
CPT/HCPCS: 99212

== ENCOUNTER → 2018-01-24 14:57 | Outpatient (POV) | payer BC, SELFPAY ==
[2018-01-24 15:25] VITALS: BP 128/66; PULSE 73; RESP 18; O2SAT 97; BMI 38.9
--- NOTE | 2018-01-24 15:56 | P.CONS_ITS ---
[facility] Pain Management SOAP Note Subjective:: Patient is a pleasant 47-year-old white female who we are treating for low back pain and bilateral hip pain. Patient rates her pain a 0 out of 10 today. Patient does well with epidural injections as well. Patient would like to schedule an epidural injection for May believe that that would be beneficial. ROS General: no recent weight change, no fever, no sleep disturbances Respiratory: no cough, no shortness of air, no recurring pulmonary infections Cardiovascular/Peripheral Vascular: No chest pain, No palpitations, no edema, no shortness of breath. Gastrointestinal: no incontinence, normal bowel movements reported Genitourinary: no incontinence Musculoskeletal: Back pain, bilateral SI joint pain Psychiatric: normal mood/ affect Neurological: [denies weakness in extremities], [denies balance issues] Objective:: Physical Exam General: Alert and oriented x3, no acute distress, pleasant and cooperative, [ on room air] Lungs: Resps E/U, Symmetrical chest expansion, Eyes: PERRL Musculoskeletal: Flexion and extension of lumbar spine somewhat guarded secondary to pain, deep tendon reflexes normal, strength in upper and lower extremities [5/5], [abnormal gait noted], bilateral Rojas's test positive Neurological: 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 We will also schedule her bilateral SI joint injection to follow that several weeks later. Patient gets at least 90% relief of her symptoms for several months. I believe that this would be beneficial. Patient's been instructed to call the office if she has any issues prior to next appointment. Patient is not on any anticoagulation therapy. This note was dictated using voice recognition software and may contain errors or omissions
== END ==
PROVIDERS: Family Provider Family Medicine; PCP Family Medicine; Visit Provider Clinical Nurse Specialist Family Health
DX: M51.16 Intervertebral disc disorders with radiculopathy, lumbar region (principal); M46.1 Sacroiliitis, not elsewhere classified
CPT/HCPCS: 99213

== ENCOUNTER → 2018-06-20 14:12 | Outpatient (POV) | payer BC, SELFPAY ==
[2018-06-20 14:26] VITALS: BP 109/49; PULSE 58; RESP 18; O2SAT 98; BMI 38.9
--- NOTE | 2018-06-20 14:35 | HMH.PAINSOAP ---
[facility] Pain Management SOAP Note Subjective:: Is a pleasant 48-year-old white female who presents today for follow-up after bilateral SI joint injections. Patient is doing extremely well rating her pain a 0 out of 10 today. Patient is on tramadol 50 mg 1 tab p.o. 3 times daily as needed. She denies side effects to this. Maynor reviewed and appropriate. ROS General: no recent weight change, no fever, no sleep disturbances Respiratory: no cough, no shortness of air, no recurring pulmonary infections Cardiovascular/Peripheral Vascular: No chest pain, No palpitations, no edema, no shortness of breath. Gastrointestinal: no incontinence, normal bowel movements reported Genitourinary: no incontinence Musculoskeletal: Back pain, SI joint pain Psychiatric: normal mood/ affect Neurological: [denies weakness in extremities], [denies balance issues] Objective:: Physical Exam General: Alert and oriented x3, no acute distress, pleasant and cooperative, [on room air] Lungs: Resps E/U, Symmetrical chest expansion, Eyes: PERRL Musculoskeletal: Flexion and extension of lumbar spine somewhat guarded secondary to pain, deep tendon reflexes normal, strength in upper and lower extremities [5/5], normal gait noted Neurological: speech clear, eligibility manager equal, no gross sensory deficits Assessment:: degenerative disc disease lumbar spine with lumbar radiculopathy and sacroiliitis Plan:: We will follow-up with the patient in 3 months and reassess her symptoms at that time. Patient is going to call us if she has any issues prior to her next appointment. This note was dictated using voice recognition software and may contain errors or omissions
== END ==
PROVIDERS: PCP Family Medicine; Visit Provider Clinical Nurse Specialist Family Health
DX: M51.16 Intervertebral disc disorders with radiculopathy, lumbar region (principal); M46.1 Sacroiliitis, not elsewhere classified
CPT/HCPCS: 99213

== ENCOUNTER → 2018-09-27 14:10 | Outpatient (POV) | payer BC, SELFPAY ==
[2018-09-27 14:30] VITALS: BP 136/64; PULSE 64; RESP 18; O2SAT 98; BMI 38.9
--- NOTE | 2018-09-27 15:47 | HMH.PAINSOAP ---
[facility] Pain Management SOAP Note Subjective:: Patient is a very pleasant 48-year-old white female who presents today for follow-up. Patient still doing quite well she rates her pain a 3 out of 10. Patient states she is going to be traveling some and she has some concerns about her SI joint pain. Patient would like to set up an injection here in the future she is gotten 80% relief up to for 5 months. 50 mg 1 p.o. 3 times daily as needed she denies any side effects. She is having some numbness and tingling we will put her on some gabapentin 100 mg p.o. nightly. Maynor reviewed and appropriate. ROS General: no recent weight change, no fever, no sleep disturbances Respiratory: no cough, no shortness of air, no recurring pulmonary infections Cardiovascular/Peripheral Vascular: No chest pain, No palpitations, no edema, no shortness of breath. Gastrointestinal: no incontinence, normal bowel movements reported Genitourinary: no incontinence Musculoskeletal: SI joint pain Psychiatric: normal mood/ affect Neurological: [denies weakness in extremities], [denies balance issues] Objective:: Physical Exam General: Alert and oriented x3, no acute distress, pleasant and cooperative, [on room air] Lungs: Resps E/U, Symmetrical chest expansion, Eyes: PERRL Musculoskeletal: Flexion and extension of lumbar spine somewhat guarded secondary to pain, deep tendon reflexes normal, strength in upper and lower extremities [5/5], slightly antalgic gait noted, positive Ed's test, positive thigh thrust test, positive SI joint compression test bilaterally Neurological: speech clear, auto bench mechanic equal, no gross sensory deficits Assessment:: Sacroiliitis Plan:: We will continue her tramadol 50 mg 1 tab p.o. 3 times daily we will also start on gabapentin 100 mg 1 p.o. nightly. Patient has been instructed to call the office if she has any issues prior to her next appointment we will set her up for bilateral SI joint injections. Dr. Sr has reviewed this note and agrees with this plan of care. This note was dictated using voice recognition software and may contain errors or omissions
== END ==
PROVIDERS: PCP Family Medicine; Visit Provider Clinical Nurse Specialist Family Health
DX: M46.1 Sacroiliitis, not elsewhere classified (principal)
CPT/HCPCS: 99212

== ENCOUNTER → 2018-11-07 12:39 | Outpatient (POV) | payer BC, SELFPAY ==
[2018-11-07 12:51] VITALS: BP 142/69; PULSE 63; RESP 18; O2SAT 98; BMI 38.9
--- NOTE | 2018-11-07 13:12 | HMH.PAINSOAP ---
[facility] Pain Management SOAP Note Subjective:: Patient is a pleasant 48-year-old white female who presents today lateral SI joint injections. She reports that she had 100% relief with the injections. She reports her pain is 0 out of 10 today. When patient has pain, it is generally bilateral hips radiating to her legs. The patient is continuing a home stretching program. She is currently on tramadol 80 mg 3 times a day and gabapentin 100 mg nightly. ROS General: no recent weight change, no fever, no sleep disturbances Respiratory: no cough, no shortness of air, no recurring pulmonary infections Cardiovascular/Peripheral Vascular: No chest pain, No palpitations, no edema, no shortness of breath. Gastrointestinal: no incontinence, normal bowel movements reported Genitourinary: no incontinence Musculoskeletal: Back pain, leg pain Psychiatric: normal mood/ affect, [denies depression], [denies anxiety] Neurological: [denies weakness in extremities], [denies balance issues] Objective:: Physical Exam General: Alert and oriented x3, no acute distress, pleasant and cooperative, [on room air] Lungs: Resps E/U, Symmetrical chest expansion, Eyes: PERRL Musculoskeletal: Flexion and extension of her spine spine somewhat guarded secondary to pain, deep tendon reflexes normal, strength in upper and lower extremities [5/5], normal gait noted. Neurological: speech clear, toll relief operator equal, no gross sensory deficits Assessment:: Sacroiliitis Plan:: We will continue the patient on her tramadol 50 mg 1 p.o. 3 times daily and gabapentin 100 mg p.o. at night. She will also continue home stretching program. The patient wishes to call the office at a later time to schedule a follow-up appointment. She is been instructed to call the office if she has any issues prior to her next appointment. Maynor #[id number] is been reviewed and is appropriate. Dr. Sr has reviewed this note and agrees with this plan of care. This note was dictated using voice recognition software and may contain errors or omissions
--- NOTE | 2018-11-07 13:16 | P.CONS_ITS ---
[facility] Pain Management SOAP Note Subjective:: Patient is a pleasant 48-year-old white female who presents today lateral SI joint injections. She reports that she had 100% relief with the injections. She reports her pain is 0 out of 10 today. When patient has pain, it is generally bilateral hips radiating to her legs. The patient is continuing a home stretching program. She is currently on tramadol 80 mg 3 times a day and gabapentin 100 mg nightly. ROS General: no recent weight change, no fever, no sleep disturbances Respiratory: no cough, no shortness of air, no recurring pulmonary infections Cardiovascular/Peripheral Vascular: No chest pain, No palpitations, no edema, no shortness of breath. Gastrointestinal: no incontinence, normal bowel movements reported Genitourinary: no incontinence Musculoskeletal: Back pain, leg pain Psychiatric: normal mood/ affect, [denies depression], [denies anxiety] Neurological: [denies weakness in extremities], [denies balance issues] Objective:: Physical Exam General: Alert and oriented x3, no acute distress, pleasant and cooperative, [on room air] Lungs: Resps E/U, Symmetrical chest expansion, Eyes: PERRL Musculoskeletal: Flexion and extension of her spine spine somewhat guarded secondary to pain, deep tendon reflexes normal, strength in upper and lower extremities [5/5], normal gait noted. Neurological: speech clear, manager functional equal, no gross sensory deficits Assessment:: Sacroiliitis Plan:: We will continue the patient on her tramadol 50 mg 1 p.o. 3 times daily and gabapentin 100 mg p.o. at night. She will also continue home stretching program. The patient wishes to call the office at a later time to schedule a follow-up appointment. She is been instructed to call the office if she has any issues prior to her next appointment. Maynor #[id number] is been reviewed and is appropriate. Dr. Sr has reviewed this note and agrees with this plan of care. This note was dictated using voice recognition software and may contain errors or omissions
--- NOTE | 2019-01-16 11:06 | PC.NURSE ---
TRAMADOL TID WITH 2 REFILLS 50MG CALLED INTO [facility] PER PROVIDER ORDER
--- NOTE | 2019-04-21 16:15 | PC.NURSE ---
TRAMADOL 50MG TID CALLED INTO [facility] WITH 2 REFILLS PER PROVIDER ORDER
== END ==
PROVIDERS: PCP Family Medicine; Visit Provider Clinical Nurse Specialist Family Health
DX: M46.1 Sacroiliitis, not elsewhere classified (principal)
CPT/HCPCS: 99212

== ENCOUNTER 2019-04-04 16:56 | Outpatient (CLI) | payer BC, SELFPAY ==
[2019-04-04 17:30] VITALS: BP 115/69; PULSE 58; RESP 20; TEMP 36.7; O2SAT 98
[2019-04-04 18:15] VITALS: BMI 38.9
[2019-04-04 19:12] VITALS: BP 115/69; PULSE 58; RESP 20; TEMP 36.7; O2SAT 98
== END 2019-04-04 19:12 | disposition home or self-care (01) ==
PROVIDERS: PCP Family Medicine; Visit Provider Family Medicine
DX: E86.0 Dehydration (principal); N39.0 Urinary tract infection, site not specified
CPT/HCPCS: 96360

== ENCOUNTER → 2019-07-24 14:03 | Outpatient (POV) | payer BC, SELFPAY ==
--- NOTE | 2019-07-24 14:23 | HMH.PAINSOAP ---
[facility] Pain Management SOAP Note Subjective:: Patient is a pleasant 49-year-old white female who presents today for follow-up. Patient recently underwent bilateral SI joint injections for which she did get 100% relief. She does continue to have some intermittent pain in her low back with radiation into her bilateral hips. She does say, however, she is not having any pain today. She rates her pain a 0 out of 10. She is currently managed with tramadol 80 mg 1 tablet p.o. 3 times daily and gabapentin 100 mg 1 tablet p.o. at bedtime. Patient says that she has not gotten any relief with her gabapentin. She is having some numbness and tingling in her bilateral hands. She says the pain is worse at night and in the morning upon wakening. She has undergone a nerve conduction study that was unremarkable. She has not had any imaging of her cervical spine at this time. She does continue with a home stretching program and anti-inflammatories. Review of Systems General: No recent weight changes, no fever, no sleep disturbances Respiratory: No cough, no shortness of air, no recurring pulmonary infections Cardiovascular/peripheral vascular: No chest pain, no palpitations, no edema, no shortness of breath Gastrointestinal: No new onset incontinence, normal bowel movements reported Genitourinary: No new onset incontinence Musculoskeletal: Intermittent neck pain with numbness and tingling bilateral arms, intermittent low back pain with bilateral hip pain Psychiatric: Normal mood/affect Neurological: [Denies weakness in extremities], [denies balance issues] Objective:: Physical exam General: Alert and oriented x3, no acute distress, pleasant and cooperative, [on room air] Lungs: Respirations even and unlabored, symmetrical chest expansion Eyes: PERRL Musculoskeletal: Flexion and extension of cervical and lumbar spine somewhat guarded secondary to pain, deep tendon reflexes normal, strength in upper and lower extremities [5/5], [abnormal gait noted] Neurological: Speech clear, tobacco classer equal, no gross sensory deficit Assessment:: Neck pain with cervical radiculopathy symptoms, sacroiliitis, low back pain Plan:: The patient I did discuss further injective therapy for her low back. At this time, her pain is not bad to her bilateral SI joints. She is having some intermittent pain in her neck as well as numbness and tingling in her hands bilaterally. She has not had any imaging of her cervical spine, however, she would like to postpone any imaging at this time. Gabapentin has not been giving the patient any relief. We will change her to generic Lyrica 75 mg 1 tablet p.o. twice daily and we will continue her tramadol 80 mg 1 tablet p.o. 3 times daily. We will see the patient back in the clinic in 3 months to reassess her symptoms. She will continue with anti-inflammatories and a home stretching program. Patient has been instructed to contact the clinic if she has any concerns before her next appointment. Dr. Sr has reviewed this note and agrees with this plan of care. This note was dictated using voice recognition software and make contain errors or omissions. [facility] History I have reviewed the patient's past medical history: Yes Medical History: Reports:: Hypertension, Migraine Denies:: Cancer, Diabetes Mellitus Type 1, Diabetes Mellitus Type 2, Internal Pacemaker, MRSA, Seizures *Have you ever received a pneumonia vaccine?: No *Have you received a flu vaccine this season?: No Other Medical History: Denies: Blood Transfusion Reaction Other Surgeries: Yes: Cardiac Catheterization, , Tubal Ligation. No: Pacemaker Amputation: No Fractures: No - *Social History Smoking Status: Never smoker Alcohol Intake: never Substance Use Type: denies use *Occupational Status:: employed Housing: house Household Members: spouse, children *Travel in the last 8 weeks: None Family Hx:: Cancer, Hypertension
[2019-07-24 14:25] VITALS: BP 128/69; PULSE 75; RESP 18; O2SAT 99; BMI 38.9
--- NOTE | 2019-09-04 12:49 | PC.NURSE ---
TRAMADOL 50MG TID WITH 3 REFILLS CALLED INTO [facility] PER PROVIDER ORDER
== END ==
PROVIDERS: PCP Family Medicine; Visit Provider Clinical Nurse Specialist Family Health
DX: M54.2 Cervicalgia (principal); M46.1 Sacroiliitis, not elsewhere classified; M54.5 Low back pain; M54.16 Radiculopathy, lumbar region
CPT/HCPCS: 99212

== ENCOUNTER → 2019-10-23 13:42 | Outpatient (POV) | payer BC, SELFPAY ==
--- NOTE | 2019-10-23 13:58 | HMH.PAINSOAP ---
[facility] Pain Management SOAP Note Subjective:: Patient is a 49-year-old white female who presents today for follow-up. She is doing well rating her pain a 0 out of 10. She is currently managed with tramadol 50 mg 1 tab p.o. 3 times daily.[facility] #[id number] reviewed and appropriate. At this time patient does not need any additional SI joint injections. Patient is at less note if this changes. Otherwise she is doing well I would like to follow-up in 3 months. ROS General: no recent weight change, no fever, no sleep disturbances Respiratory: no cough, no shortness of air, no recurring pulmonary infections Cardiovascular/Peripheral Vascular: No chest pain, No palpitations, no edema, no shortness of breath. Gastrointestinal: no new onset incontinence, normal bowel movements reported Genitourinary: no new onset incontinence Musculoskeletal: Intermittent SI joint pain Psychiatric: normal mood/ affect, [denies depression], [denies anxiety] Neurological: [denies new onset weakness in extremities], [denies new onset balance issues] Objective:: Physical Exam General: Alert and oriented x3, no acute distress, pleasant and cooperative, [on room air] Lungs: Resps E/U, Symmetrical chest expansion, Eyes: PERRL Musculoskeletal: Flexion and extension of lumbar spine somewhat guarded secondary to pain, deep tendon reflexes normal, strength in upper and lower extremities [5/5], normal gait noted Neurological: speech clear, unit supervisor equal, no gross sensory deficits Assessment:: Sacroiliitis, low back pain, neck pain Plan:: We will continue her on her tramadol 50 mg 1 p.o. daily. She has been instructed to call the office if she has any issues prior to her next appointment. Dr. Sr has reviewed this note and agrees with this plan of care. This note was dictated using voice recognition software and may contain errors or omissions [facility] History I have reviewed the patient's past medical history: Yes Medical History: Reports:: Hypertension, Migraine Denies:: Cancer, Diabetes Mellitus Type 1, Diabetes Mellitus Type 2, Internal Pacemaker, MRSA, Seizures *Have you ever received a pneumonia vaccine?: Yes *Have you received a flu vaccine this season?: Yes Other Medical History: Denies: Blood Transfusion Reaction Other Surgeries: Yes: Cardiac Catheterization, , Tubal Ligation. No: Pacemaker Amputation: No Fractures: No - *Social History Smoking Status: Never smoker Alcohol Intake: never Substance Use Type: denies use *Occupational Status:: other Housing: house Household Members: spouse, children *Travel in the last 8 weeks: None Family Hx:: Cancer, Hypertension
[2019-10-23 14:03] VITALS: BP 139/46; PULSE 64; RESP 18; TEMP 36.9; O2SAT 99; BMI 38.9
== END ==
PROVIDERS: PCP Family Medicine; Visit Provider Clinical Nurse Specialist Family Health
DX: M46.1 Sacroiliitis, not elsewhere classified (principal); M54.5 Low back pain; M54.2 Cervicalgia
CPT/HCPCS: 99212

== ENCOUNTER → 2020-01-25 15:27 | Outpatient (POV) | payer BC, SELFPAY ==
[2020-01-25 15:34] VITALS: BP 132/74; PULSE 74; RESP 18; O2SAT 99; BMI 39.8
--- NOTE | 2020-01-25 15:45 | HMH.PAINSOAP ---
[facility] Pain Management SOAP Note Subjective:: Patient is a pleasant 49-year-old white female who presents today for medication refills. She has been treated for chronic low back pain with bilateral hip pain. Patient does undergo injective therapy to bilateral SI joints. She has been off through the summer. 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 She says that once school starts back she will probably need repeat injections to her bilateral SI joints. She is currently managed with tramadol 50 mg 1 tablet p.o. 3 times daily. She denies any side effects to the medication. Her Maynor #[id number] has been reviewed and is appropriate. Morphine equivalent is 15. She rates her pain a 4 out of 10. Review of Systems General: No recent weight changes, no fever, no sleep disturbances Respiratory: No cough, no shortness of air, no recurring pulmonary infections Cardiovascular/peripheral vascular: No chest pain, no palpitations, no edema, no shortness of breath Gastrointestinal: No new onset incontinence, normal bowel movements reported Genitourinary: No new onset incontinence Musculoskeletal: Low back pain, bilateral hip pain Psychiatric: Normal mood/affect Neurological: [Denies weakness in extremities], [denies balance issues] Objective:: Physical exam General: Alert and oriented x3, no acute distress, pleasant and cooperative, [on room air] Lungs: Respirations even and unlabored, symmetrical chest expansion Eyes: PERRL Musculoskeletal: Flexion and extension of lumbar spine somewhat guarded secondary to pain, deep tendon reflexes normal, strength in upper and lower extremities [5/5], [abnormal gait noted] positive [place]'s test, positive Rojas's test, positive distraction test Neurological: Speech clear, circle beveler equal, no gross sensory deficit Assessment:: Chronic sacroiliitis, low back pain Plan:: We will refill the patient's tramadol 50 mg 1 tablet p.o. 3 times daily. We will give her 3 months of medication see her back in the clinic in 3 months to reassess her symptoms. She has been instructed to contact clinic if she has any concerns for next appointment. The patient and I specifically discussed risk factors for COVID19. These risks include, but are not limited to age greater than 60, heart or lung disease, diabetes, immunosuppression, and travel. We also discussed NSAIDs may worsen COVID19 infection or symptoms. Patient should not use NSAIDs to treat COVID19 signs or symptoms. Patient was also informed that any type of corticosteroid of any form (oral or injection) will decrease the patient's immune system response and may increase the likelihood of COVID19 infection and symptoms[address] Dr. Sr has reviewed this note and agrees with this plan of care. This note was dictated using voice recognition software and make contain errors or omissions. [facility] History I have reviewed the patient's past medical history: Yes Medical History: Reports:: Hypertension, Migraine Denies:: Cancer, Diabetes Mellitus Type 1, Diabetes Mellitus Type 2, Internal Pacemaker, MRSA, Seizures *Have you ever received a pneumonia vaccine?: Yes *Have you received a flu vaccine this season?: Yes Other Medical History: Denies: Blood Transfusion Reaction Other Surgeries: Yes: Cardiac Catheterization, , Tubal Ligation. No: Pacemaker Amputation: No Fractures: No - *Social History Smoking Status: Never smoker Alcohol Intake: never Substance Use Type: denies use *Occupational Status:: other Housing: house Household Members: spouse, children *Travel in the last 8 weeks: None Family Hx:: Cancer, Hypertension
== END ==
PROVIDERS: PCP Family Medicine; Visit Provider Clinical Nurse Specialist Family Health
DX: M46.1 Sacroiliitis, not elsewhere classified (principal); G89.29 Other chronic pain; M54.5 Low back pain
CPT/HCPCS: 99212

== ENCOUNTER → 2020-05-06 13:29 | Outpatient (POV) | payer BC, SELFPAY ==
--- NOTE | 2020-05-06 14:11 | HMH.PAINSOAP ---
[facility] Pain Management SOAP Note Subjective:: Patient is a Pleasant 50-year-old white female presents today for medication refills. She has been treated for chronic low back pain with bilateral hip pain. Patient is currently managed with tramadol 50 mg 1 tab p.o. 3 times daily. She denies side effects from medication. She states that helps significantly. 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 She rates her pain a 6 out of 10. Patient's Maynor #[id number] reviewed and appropriate. ROS General: no recent weight change, no fever, no sleep disturbances Respiratory: no cough, no shortness of air, no recurring pulmonary infections Cardiovascular/Peripheral Vascular: No chest pain, No palpitations, no edema, no shortness of breath. Gastrointestinal: no new onset incontinence, normal bowel movements reported Genitourinary: no new onset incontinence Musculoskeletal: Back pain, leg pain Psychiatric: normal mood/ affect Neurological: [denies new onset weakness in extremities], [denies new onset balance issues] Objective:: Physical Exam General: Alert and oriented x3, no acute distress, pleasant and cooperative, [on room air] Lungs: Resps E/U, Symmetrical chest expansion, Eyes: PERRL Musculoskeletal: Flexion and extension of lumbar spine somewhat guarded secondary to pain, deep tendon reflexes normal, strength in upper and lower extremities [5/5], [abnormal gait noted] Neurological: speech clear, hydrochloric manufacturing supervisor equal, no gross sensory deficits Assessment:: Degenerative disc disease lumbar spine, sacroiliitis Plan:: We will refill the patient's tramadol 50 mg 1 tab p.o. 3 times daily. We will give her 3 months worth of medication. Patient's been instructed to call the office if he has any issues prior to next appointment. Dr. Sr has reviewed this note and agrees with this plan of care. This note was dictated using voice recognition software and may contain errors or omissions [facility] History I have reviewed the patient's past medical history: Yes Medical History: Reports:: Hypertension, Migraine Denies:: Cancer, Diabetes Mellitus Type 1, Diabetes Mellitus Type 2, Internal Pacemaker, MRSA, Seizures *Have you ever received a pneumonia vaccine?: Yes *Have you received a flu vaccine this season?: Yes Other Medical History: Denies: Blood Transfusion Reaction Other Surgeries: Yes: Cardiac Catheterization, , Tubal Ligation. No: Pacemaker Amputation: No Fractures: No - *Social History Smoking Status: Never smoker Alcohol Intake: never Substance Use Type: denies use *Occupational Status:: other Housing: house Household Members: spouse, children *Travel in the last 8 weeks: None Family Hx:: Cancer, Hypertension
[2020-05-06 14:19] VITALS: BP 125/85; PULSE 74; RESP 18; TEMP 36.8; O2SAT 98; BMI 38.2
== END ==
PROVIDERS: Visit Provider Clinical Nurse Specialist Family Health
DX: M51.36 Other intervertebral disc degeneration, lumbar region (principal); M46.1 Sacroiliitis, not elsewhere classified
CPT/HCPCS: 99212

== ENCOUNTER → 2020-08-01 14:29 | Outpatient (POV) | payer BC, SELFPAY ==
--- NOTE | 2020-08-01 16:27 | HMH.PAINSOAP ---
[facility] Pain Management SOAP Note Subjective:: Patient is a pleasant 50-year-old white female who presents today for follow-up and medication refills. She is being treated for chronic low back pain with lumbar radiculopathy symptoms. She is managed with tramadol 50 mg 1 tablet p.o. 3 times daily. She denies any side effects to her medication. She rates her pain a 4 out of 10 today. She says that the medication is working well for her at this time. Review of Systems General: No recent weight changes, no fever, no sleep disturbances Respiratory: No cough, no shortness of air, no recurring pulmonary infections Cardiovascular/peripheral vascular: No chest pain, no palpitations, no edema, no shortness of breath Gastrointestinal: No new onset incontinence, normal bowel movements reported Genitourinary: No new onset incontinence Musculoskeletal: Low back pain Psychiatric: Normal mood/affect Neurological: [Denies weakness in extremities], [denies balance issues] Objective:: Physical exam General: Alert and oriented x3, no acute distress, pleasant and cooperative, [on room air] Lungs: Respirations even and unlabored, symmetrical chest expansion Eyes: PERRL Musculoskeletal: Flexion and extension of lumbar spine somewhat guarded secondary to pain, deep tendon reflexes normal, strength in upper and lower extremities [5/5], [abnormal gait noted] Neurological: 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 Plan:: We will refill the patient's tramadol 50 mg 1 tablet p.o. 3 times a day. We will give her 3 months worth medication. Her Major and drug screens have been appropriate. She can contact the clinic if she has any concerns before next appointment. Patient has been prescribed a controlled substance after being counseled on the medication, medication safety, and possible side effects. MAJOR report has been obtained and reviewed prior to prescription and found to be appropriate. Opioid contract was reviewed and signed by the patient, and that they have agreed to all of the terms set forth by our compliance program. The patient and I specifically discussed risk factors for COVID19. These risks include, but are not limited to age greater than 60, heart or lung disease, diabetes, immunosuppression, and travel. We also discussed NSAIDs may worsen COVID19 infection or symptoms. Patient should not use NSAIDs to treat COVID19 signs or symptoms. Patient was also informed that any type of corticosteroid of any form (oral or injection) will decrease the patient's immune system response and may increase the likelihood of COVID19 infection and symptoms[address] Dr. Sr has reviewed this note and agrees with this plan of care. This note was dictated using voice recognition software and make contain errors or omissions. [facility] History I have reviewed the patient's past medical history: Yes Medical History: Reports:: Hypertension, Migraine Denies:: Cancer, Diabetes Mellitus Type 1, Diabetes Mellitus Type 2, Internal Pacemaker, MRSA, Seizures *Have you ever received a pneumonia vaccine?: Yes *Have you received a flu vaccine this season?: Yes Other Medical History: Denies: Blood Transfusion Reaction Other Surgeries: Yes: Cardiac Catheterization, , Tubal Ligation. No: Pacemaker Amputation: No Fractures: No - *Social History Smoking Status: Never smoker Alcohol Intake: never Substance Use Type: denies use *Occupational Status:: other Housing: house Household Members: spouse, children *Travel in the last 8 weeks: None Family Hx:: Cancer, Hypertension
[2020-08-01 16:34] VITALS: BP 132/71; PULSE 65; RESP 18; O2SAT 98; BMI 40.7
== END ==
PROVIDERS: PCP Family Medicine; Visit Provider Clinical Nurse Specialist Family Health
DX: M51.16 Intervertebral disc disorders with radiculopathy, lumbar region (principal)
CPT/HCPCS: 99212; G0463

== ENCOUNTER 2021-02-16 09:51 | Emergency (ER) | payer BC, SELFPAY ==
[2021-02-16 10:00] VITALS: PULSE 84; RESP 18; TEMP 36.9; O2SAT 99; BMI 40.7
[2021-02-16 10:06] VITALS: BP 134/106; PULSE 84; RESP 18; TEMP 36.9
[2021-02-16 10:13] LABS: UTC Strep Screen (Rapid) Negative (Negative)
--- NOTE | 2021-02-16 10:19 | HMH.EDUTC ---
[facility] [place] Disposition Clinical Impression: Upper respiratory infection Qualifiers: URI type: unspecified viral URI Qualified Code(s): J06.9 - Acute upper respiratory infection, unspecified Disposition: Home, Self-Care Condition on Discharge: Good Instructions: Preventing the Spread of Coronavirus Discharge Instructions Additional Instructions: You have been tested for COVID19. Please isolate yourself as if you are positive until test results received. Your test results should be available on the patient portal when complete. Prescriptions: Brompheniramine/Pseudoephed/Dm [Bromfed Dm Cough Syrup] 5 ml PO Q4HP PRN 10 Days #200 ml PRN Reason: cough/congestion Transmission Status: Pending to [id number] predniSONE [Prednisone 20mg Tab] 20 mg PO BID 5 Days #10 tab [facility]: [id number] Referrals: Shamar Mirza MD [Primary Care Provider] - Forms: Work/School Release Time of Disposition: 10:30 Medical Decision Making - Maynor Inquiry Pt receiving controlled substance: No Vital Signs: 02/16/21 10:00 02/16/21 10:06 Temperature 98.4 F 98.4 F Temperature Source Oral Pulse Rate 84 Pulse Rate [Left] 84 Respiratory Rate 18 18 Blood Pressure 134/106 H 02 Sat by Pulse Oximetry 99 - Lab Data Lab Results 02/16/21 10:06: Strep Scn Rapid Clinic Negative Orders (Tests/Meds): ORDERS Category Date Time Status Covid-19 Nasal PCR ([facility]) Routine Lab 02/16/21 10:04 Received Strep Screen Confirmation Stat Micro 02/16/21 10:06 Received [facility] [place] HPI - General Stated complaint: covid test Time Seen by Provider: 02/16/21 10:19 Mode of Arrival: Ambulatory Source of Information: Patient Limitations: No Limitations Description of Symptoms (Recalled from Triage Doc. by RN): pt c/o chest congestionn, sore throat, ears popping and nasal congestion. HEENT Symptoms (Recalled from RN notes): Yes (sore throat, ears popping and nasal congestion) Resp Symptoms (Recalled from RN notes): Yes (chest congestion) Skin Symptoms (Recalled from RN notes): No MS Symptoms (Recalled from RN notes): No Functional Status (Recalled from RN notes): na - History of Present Illness Provider Complaint: Chest congestion, cough, runny nose, ears popping X 5 days. No fever. No loss of taste or smell. No vomiting or diarrhea. No rash. Onset (ago): day(s) (5) Relieving factors: none Exacerbating factors: none Associated symptoms: cough Treatments prior to arrival: none - Related Data Home Medications Medication Instructions Recorded Confirmed Tramadol HCl [Ultram Take Home 50 mg PO TIDP PRN 09/06/17 03/29/19 Pack 50mg (10)] Bisoprolol/Hydrochlorothiazide 1 tab PO DAILY 09/15/17 03/29/19 [Bisoprolol-Hctz 2.5-6.25 mg Tb] Meloxicam 15 mg PO DAILY 09/15/17 03/29/19 Sertraline HCl [Zoloft 50mg tablet] 50 mg PO DAILY 09/15/17 03/29/19 lisinopriL [Prinivil 20mg Tablet] 20 mg PO DAILY 11/05/17 03/29/19 acetaminophen 650 mg 650 mg PO Q8H PRN 01/31/18 03/29/19 tablet,extended release Previous Rx's Medication Instructions Recorded ondansetron 4 mg disintegrating 4 mg PO Q8H PRN 4 Days #12 tab 03/29/19 tablet Tramadol HCl [Tramadol 50mg 50 mg PO TID #90 tab 10/23/19 Tab] Tramadol HCl [Tramadol 50mg 50 mg PO TID #90 tab 05/06/20 Tab] Tramadol HCl [Tramadol 50mg 50 mg PO TID #90 tab 08/02/20 Tab] Brompheniramine/Pseudoephed/Dm 5 ml PO Q4HP PRN 10 Days #200 ml 02/16/21 [Bromfed Dm Cough Syrup] predniSONE [Prednisone 20mg 20 mg PO BID 5 Days #10 tab 02/16/21 Tab] Allergies Allergy/AdvReac Type Severity Reaction Status Date / Time No Known Allergies Allergy Verified 03/29/19 19:05 - Worker's Comp Is this a Worker's Comp case?: No [facility] History - Hepatitis A Screen Drug use history?: No High risk sexual behaviors?: No History of sexually transmitted infection?: No Currently employed?: No Childcare worker?: No Do you selby
== END 2021-02-16 10:43 | disposition home or self-care (01) ==
PROVIDERS: Emergency Provider Physician Assistant; PCP Family Medicine
DX: J06.9 Acute upper respiratory infection, unspecified (principal); I10 Essential (primary) hypertension; G43.709 Chronic migraine without aura, not intractable, without status migrainosus; Z20.822 Contact with and (suspected) exposure to COVID-19
CPT/HCPCS: 87880; 99203; C9803; G0463; U0003; U0005

== ENCOUNTER → 2021-04-03 14:18 | Outpatient (POV) | payer BC, SELFPAY ==
[2021-04-03 14:35] VITALS: BP 143/86; PULSE 77; RESP 18; O2SAT 96; BMI 40.7
--- NOTE | 2021-04-03 15:14 | HMH.PAINSOAP ---
[facility] Pain Management SOAP Note Subjective:: Patient is a 51-year-old white female who presents today for follow-up and medication refills. Patient does have chronic low back pain. The pain does radiate into her lower extremities intermittently. 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 She does get significant relief with her medication regimen, but feels the medication is wearing off over time throughout the day. She is currently on tramadol 50 mg 1 tablet p.o. 3 times daily. She rates her pain a 6 out of 10 today. She would like a increase in the dosing if possible so that she may take the medication up to 4 times daily so the medication does not wear off this quickly. She does continue with home stretching. Review of Systems General: No recent weight changes, no fever, no sleep disturbances Respiratory: No cough, no shortness of air, no recurring pulmonary infections Cardiovascular/peripheral vascular: No chest pain, no palpitations, no edema, no shortness of breath Gastrointestinal: No new onset incontinence, normal bowel movements reported Genitourinary: No new onset incontinence Musculoskeletal: Low back pain with radiation into lower extremities Psychiatric: [Normal mood/affect] Neurological: [Denies weakness in extremities], [denies balance issues] Objective:: Physical exam General: Alert and oriented x3, no acute distress, pleasant and cooperative Lungs: Respirations even and unlabored, symmetrical chest expansion Eyes: PERRL Musculoskeletal: Flexion and extension of lumbar [spine] somewhat guarded secondary to pain, [antalgic gait noted] Neurological: Speech clear, no gross sensory deficit Assessment:: Degenerative disc disease lumbar spine with lumbar radiculopathy symptoms Plan:: We will increase the patient's tramadol to 50 mg 1 tablet p.o. 4 times daily. We will give the patient 3 months of medication and plan to see her back in the clinic in 3 months. If the patient's pain changes or she needs to come into the clinic before her next appointment she can call the clinic. [facility] #[id number] has been reviewed and is appropriate. Drug screen is appropriate. Morphine equivalent is 15. Risks and benefits of the medication have been explained in detail to the patient. The patient does understand the risk of dependence on the medication when given over a prolonged period. Patient has been advised of risks of oversedation with the prescribed medication. Narcan has been offered to the paitent in the event of oversedation. Patient has been advised that a family member should also be educated regarding administration of Narcan. The patient has been advised to consult with his/her primary care provider and pharmacist regarding drug-drug interaction of medications currently prescribed. Patient has been prescribed a controlled substance after being counseled on the medication, medication safety, and possible side effects. MAJOR report has been obtained and reviewed prior to prescription and found to be appropriate. Opioid contract was reviewed and signed by the patient, and that they have agreed to all of the terms set forth by our compliance program. Patient has been instructed to contact the clinic with any concerns before the next appointment. Dr. Sr has reviewed this note and agrees with this plan of care. This note was dictated using voice recognition software and make contain errors or omissions. [facility] History I have reviewed the patient's past medical history: Yes Medical History: Reports:: Hypertension, Migraine Denies:: Cancer, Diabetes Mellitus Type 1, Diabetes Mellitus Type 2, Internal Pacemaker, MRSA, Seizures *Have you ever received a pneumonia vaccine?: No *Have you received a flu vaccine this season?: Yes Other Medical History: Denies: Blood Transfusion Reaction Other Surgeries: Yes: Cardiac Catheterization, , Tubal Ligation. No: Pacemaker Amputation: No Fractures: No - *Social History Sm
== END ==
PROVIDERS: Visit Provider Clinical Nurse Specialist Family Health
DX: M51.16 Intervertebral disc disorders with radiculopathy, lumbar region (principal)
CPT/HCPCS: 99212; G0463

== ENCOUNTER → 2021-07-03 14:04 | Outpatient (POV) | payer BC, SELFPAY ==
--- NOTE | 2021-07-03 14:26 | P.CONS_ITS ---
[facility] Pain Management SOAP Note Subjective:: Patient is a 51-year-old white female who presents today for medication refills. She is treated for chronic low back pain. She does undergo routine injective therapy to her low back and SI joints. She is on tramadol 50 mg 1 tablet p.o. 4 times daily and gets excellent relief. Today, she rates her pain a 1 out of 10. Major #[id number] has been reviewed and is appropriate. Drug screen is appropriate. Review of Systems General: No recent weight changes, no fever, no sleep disturbances Respiratory: No cough, no shortness of air, no recurring pulmonary infections Cardiovascular/peripheral vascular: No chest pain, no palpitations, no edema, no shortness of breath Gastrointestinal: No new onset incontinence, normal bowel movements reported Genitourinary: No new onset incontinence Musculoskeletal: Intermittent low back pain Psychiatric: [Normal mood/affect] Neurological: [Denies weakness in extremities], [denies balance issues] Objective:: Physical exam General: Alert and oriented x3, no acute distress, pleasant and cooperative Lungs: Respirations even and unlabored, symmetrical chest expansion Eyes: PERRL Musculoskeletal: Flexion and extension of lumbar [spine] somewhat guarded secondary to pain, [antalgic gait noted] Neurological: Speech clear, no gross sensory deficit Assessment:: Degenerative disc disease lumbar spine with lumbar radiculopathy Plan:: Patient is doing well overall. We will continue patient's tramadol 50 mg 1 tablet nightly.. Risks and benefits of the medication have been explained in detail to the patient. The patient does understand the risk of dependence on the medication when given over a prolonged period. Patient has been advised of risks of oversedation with the prescribed medication. Narcan has been offered to the paitent in the event of over sedation. Patient has been advised that a family member should also be educated regarding administration of Narcan. The patient has been advised to consult with his/her primary care provider and pharmacist regarding drug-drug interaction of medications currently prescribed. Patient has been prescribed a controlled substance after being counseled on the medication, medication safety, and possible side effects. MAJOR report has been obtained and reviewed prior to prescription and found to be appropriate. Opioid contract was reviewed and signed by the patient, and that they have agreed to all of the terms set forth by our compliance program. Patient has been instructed to contact the clinic with any concerns before the next appointment. Dr. Sr has reviewed this note and agrees with this plan of care. This note was dictated using voice recognition software and make contain errors or omissions. [facility] History I have reviewed the patient's past medical history: Yes Medical History: Reports:: Hypertension, Migraine Denies:: Cancer, Diabetes Mellitus Type 1, Diabetes Mellitus Type 2, Internal Pacemaker, MRSA, Seizures *Have you ever received a pneumonia vaccine?: No *Have you received a flu vaccine this season?: Yes Other Medical History: Denies: Blood Transfusion Reaction Other Surgeries: Yes: Cardiac Catheterization, , Tubal Ligation. No: Pacemaker Amputation: No Fractures: No - *Social History Smoking Status: Never smoker Alcohol Intake: never Substance Use Type: denies use *Occupational Status:: unemployed Housing: house Household Members: spouse, children *Travel in the last 8 weeks: None Family Hx:: Cancer, Hypertension
[2021-07-03 14:30] VITALS: BP 122/71; PULSE 76; RESP 18; O2SAT 96; BMI 40.7
== END ==
PROVIDERS: Visit Provider Clinical Nurse Specialist Family Health
DX: M51.16 Intervertebral disc disorders with radiculopathy, lumbar region (principal)
CPT/HCPCS: 99212; G0463

== ENCOUNTER 2021-08-31 20:52 | Emergency (ER) | payer BC, SELFPAY ==
[2021-08-31 20:54] VITALS: BP 143/99; PULSE 95; RESP 18; TEMP 37.3; O2SAT 98; BMI 40.7
[2021-08-31 21:06] VITALS: BP 143/99; PULSE 80; RESP 18; O2SAT 98
--- NOTE | 2021-08-31 21:21 | CT_ITS ---
PROCEDURE INFORMATION: Exam: CT Abdomen And Pelvis With Contrast Exam date and time: 08/31/2021 10:14 PM Age: 51 years old Clinical indication: Fever and nausea and vomiting; Prior surgery; Surgery date: 6+ months; Surgery type: C section tubal ligation; Additional info: Abdominal pain generalized, fever, nausea, vomiting, diarrhea TECHNIQUE: Imaging protocol: Computed tomography of the abdomen and pelvis with contrast. Radiation optimization: All CT scans at this facility use at least one of these dose optimization techniques: automated exposure control; mA and/or kV adjustment per patient size (includes targeted exams where dose is matched to clinical indication); or iterative reconstruction. Contrast material: ISOVUE; Contrast volume: 75 ml; Contrast route: IV; COMPARISON: CR HIP2L HIP-2 VIEWS-LT 01/04/2015 3:30 PM FINDINGS: Liver: Normal. No mass. Gallbladder and bile ducts: Normal. No calcified stones. No ductal dilation. Pancreas: Normal. No ductal dilation. Spleen: Normal. No splenomegaly. Adrenal glands: Tiny right adrenal adenoma. The Kidneys and ureters: Multiple parapelvic cysts involving bilateral kidneys. No hydronephrosis. Stomach and bowel: Unremarkable. No obstruction. No mucosal thickening. Appendix: Appendix normal. Intraperitoneal space: Unremarkable. No free air. No significant fluid collection. Vasculature: Unremarkable. No abdominal aortic aneurysm. Lymph nodes: Unremarkable. No enlarged lymph nodes. Urinary bladder: Unremarkable as visualized. Reproductive: Unremarkable as visualized. Bones/joints: Unremarkable. No acute fracture. Soft tissues: Unremarkable. IMPRESSION: No acute findings. COMMENTS: Consistent with the [employer]'s Incidental Findings Committee white paper (J [employer]is [employer]iol 2018): Any incidental renal lesion less than 1 cm or classified as too small to characterize, or any incidental cystic renal lesion characterized as simple-appearing, is likely benign. No follow-up imaging is recommended for these lesions per consensus recommendations based on imaging criteria.
[2021-08-31 21:22] LABS: Coronavirus 19, PCR Not Detected (NotDetected); Influenza A, PCR Not Detected (NotDetected); Influenza B, PCR Not Detected (NotDetected)
[2021-08-31 21:22] LABS: Microscopic, Urine URINE MICROSCOPIC (MICROSCOPIC)
[2021-08-31 21:26] LABS: Appearance,Urine CLOUDY (Clear); Blood, Urine TRACE-L (Negative); Color,Urine YELLOW (Yellow); Glucose,Urine (UA) Negative (Negative); Ketones,Urine TRACE (Negative); Leukocyte Esterase,Urine TRACE (Negative); Nitrate,Urine Negative (Negative); Protein,Urine TRACE (Negative); Specific Gravity, Urine >= 1.030 (1.005-1.030); Urobilinogen,Urine 0.2 EU/dl (0.2)
[2021-08-31 21:30] VITALS: BP 142/95; PULSE 83; O2SAT 98
[2021-08-31 21:33] LABS: Bilirubin,Urine Negative (Negative)
[2021-08-31 21:34] LABS: Amorphous Sediment,Urine 2+ /lpf; Mucus,Urine 1+ /lpf; Squamous Epithelial Cell,Urine 20-50 #/hpf (0-5)
[2021-08-31 21:36] LABS: Basophils # 0.1 K/mm3 (0-0.2); Basophils % 0.9 % (0.1-2.0); Eosinophils # 0.1 K/mm3 (0.0-0.4); Eosinophils % 0.9 % (0.1-12.0); Hematocrit 47.1 % (37.0-47.0); Hemoglobin 15.6 g/dL (12.2-16.2); Lymphocytes # 1.5 K/mm3 (0.7-4.5); Lymphocytes % 20.5 % (10-50); Mean Corpuscular HGB Conc 33.1 g/dL (31.8-35.4); Mean Corpuscular Hemoglobin 30.1 pg (27.0-31.2); Mean Platelet Volume 7.8 fl (7.4-10.4); Monocytes # 0.4 K/mm3 (0.1-1.0); Monocytes % 6.1 % (1.7-9.3); Neutrophils # 5.1 K/mm3 (1.8-7.8); Neutrophils % 71.5 % (37.0-80.0); Platelet Count 415 K/mm3 (142-424); Red Blood Count 5.18 M/mm3 (4.20-5.40); Red Cell Distribution Width 13.2 % (11.5-17.5); White Blood Count 7.2 K/mm3 (4.8-10.8)
[2021-08-31 21:47] LABS: Alkaline Phosphatase 84 U/L (38-126); Bilirubin,Total 0.8 mg/dl (0.2-1.3); Blood Urea Nitrogen 24 mg/dl (7-17); Carbon Dioxide 27 mmol/L (22.0-30.0); Creatinine Clearance Estimated 89 mL/min (50-200); Estimated Glomerular Filt Rate 47 ml/min (>60); GFR (African American) 57 ML/MIN (>60)
[2021-08-31 21:54] LABS: C-Reactive Protein 7.2 mg/L (0-4)
[2021-08-31 22:00] LABS: Chloride 101 mmol/L (98-107); Sodium 136 mmol/L (136-145)
[2021-08-31 22:01] VITALS: BP 147/69; PULSE 83; O2SAT 98
[2021-08-31 22:02] LABS: Alanine Aminotransferase 30 U/L (12-78); Aspartate Amino Transferase 31 U/L (14-36)
[2021-08-31 22:03] LABS: Calcium 8.7 mg/dl (8.4-10.2); Glucose 167 mg/dl (74-100)
[2021-08-31 22:04] LABS: Procalcitonin 0.304 ng/mL (0.0-2.0)
[2021-08-31 22:06] LABS: Erythrocyte Sedimentation Rate 14 mm/hr (0-30)
[2021-08-31 22:17] LABS: Albumin Level 4.6 g/dl (3.5-5.0); Albumin/Globulin Ratio 1.4 (1.1-1.8); Anion Gap 12.3 mEq/L (5-15); Globulin 3.3 g/dL (1.3-3.2); Potassium 4.3 mmoL/L (3.5-5.1); Total Protein,Serum 7.9 g/dl (6.3-8.2)
[2021-08-31 22:30] VITALS: BP 137/80; PULSE 86; O2SAT 99
--- NOTE | 2021-08-31 23:02 | HMH.EDNVD ---
ED Disposition Clinical Impression: Gastroenteritis Disposition: Home, Self-Care Condition on Discharge: Good Instructions: DI for Diarrhea and Traveler's Diarrhea -- Adult Additional Instructions: fluids and see pcp for follow up Prescriptions: Ondansetron [Zofran 4mg ODT] 4 mg PO TIDP PRN #15 tab PRN Reason: Nausea And Vomiting Transmission Status: Pending to [id number] Referrals: Shamar Mirza MD [Primary Care Provider] - - Critical Care Critical Care Time: No Attestation: On 08/31/21, the high probability of a clinically significant, sudden or life threatening deterioration of the following system(s) required my full and direct attention, intervention and personal management. The time I documented below is in addition to time spent performing reported procedures but includes the following listed in this critical care notation. Medical Decision Making - Medical Records Medical records reviewed: Yes: I reviewed the patient's medical records. - Maynor Inquiry Pt receiving controlled substance: No Vital Signs: 08/31/21 20:54 08/31/21 21:06 08/31/21 21:30 Temperature 99.1 F Temperature Source Oral Pulse Rate 80 83 Pulse Rate [Left Radial] 95 H Respiratory Rate 18 18 Blood Pressure 143/99 H 142/95 H Blood Pressure [Right Arm] 143/99 H Blood Pressure Mean 116 110 Blood Pressure Mean [Right Arm] 113 02 Sat by Pulse Oximetry 98 98 98 08/31/21 22:01 08/31/21 22:30 Temperature Temperature Source Pulse Rate 83 86 Pulse Rate [Left Radial] Respiratory Rate Blood Pressure 147/69 H 137/80 Blood Pressure [Right Arm] Blood Pressure Mean 95 95 Blood Pressure Mean [Right Arm] 02 Sat by Pulse Oximetry 98 99 - Lab Data Lab results reviewed: Yes: I reviewed the patient's lab results. Lab Results 08/31/21 21:03: Urine Color Yellow, Urine Appearance Cloudy, Urine pH 6.0, Ur Specific [place] >= 1.030, Urine Protein Trace, Urine Glucose (UA) Negative, Urine Ketones Trace, Urine Blood Trace-l, Urine Nitrate Negative, Urine Bilirubin Negative, Urine Urobilinogen 0.2, Ur Leukocyte Esterase Trace, Urine RBC 3-5, Urine WBC 3-5, Ur Squamous Epith Cells 20-50, Amorphous Sediment 2+, Urine Mucus 1+ 08/31/21 21:04: SARS-CoV-2 (PCR) Not detected, Influenza A Untype (PCR) Not detected, Influenza Type B (PCR) Not detected 08/31/21 21:21: WBC 7.2, RBC 5.18, Hgb 15.6, Hct 47.1 H, MCV 91.0, MCH 30.1, MCHC 33.1, RDW 13.2, Plt Count 415, MPV 7.8, Neut % (Auto) 71.5, Lymph % (Auto) 20.5, Yancey % (Auto) 6.1, Eos % (Auto) 0.9, Baso % (Auto) 0.9, Neut # (Auto) 5.1, Lymph # (Auto) 1.5, Yancey # (Auto) 0.4, Eos # (Auto) 0.1, Baso # (Auto) 0.1 08/31/21 21:21: Sodium 136, Potassium 4.3, Chloride 101, Carbon Dioxide 27, Anion Gap 12.3, BUN 24 H, Creatinine 1.20 H, Estimated Creat Clear 89, Estimated GFR 47 L, Est GFR ( Amer) 57 L, Glucose 167 H, Calcium 8.7, Total Bilirubin 0.8, AST 31, ALT 30, Alkaline Phosphatase 84, C-Reactive Protein 7.2 H, Total Protein 7.9, Albumin 4.6, Globulin 3.3 H, Albumin/Globulin Ratio 1.4, Procalcitonin 0.304 08/31/21 21:21: ESR 14 Result diagrams: 08/31/21 21:21 08/31/21 21:21 Orders (Tests/Meds): ED MEDICATIONS Generic Name Dose Route Start Last Admin Trade Name Freq PRN Reason Stop Dose Admin Sodium Chloride 1,000 mls @ 999 mls/hr 08/31/21 21:30 08/31/21 21:27 Sod Chlor 0.9% 1000ml Bag IV 08/31/21 22:30 999 mls/hr .Q1H1M PRACHI Administration Sodium Chloride 1,000 mls @ 999 mls/hr 08/31/21 22:45 08/31/21 23:09 Sod Chlor 0.9% 1000ml Bag IV 08/31/21 23:45 999 mls/hr .Q1H1M PRACHI Administration Sodium Chloride 1,000 mls @ 250 mls/hr 08/31/21 23:45 08/31/21 23:38 Sod Chlor 0.9% 1000ml Bag IV 09/01/21 03:44 250 mls/hr .Q4H PRACHI Administration Sodium Chloride 10 ml 08/31/21 21:23 Sodium Chloride 0.9% 10ml Flush Syringe IV 09/30/21 21:22 NEEDED PRN Maintain IV Site Discontinued Medications Generic Name
[2021-09-01 00:18] VITALS: BP 146/86; PULSE 89; RESP 16; TEMP 36.9; O2SAT 98
== END 2021-09-01 00:22 | disposition home or self-care (01) ==
PROVIDERS: Emergency Provider Emergency Medicine; PCP Family Medicine
DX: K52.9 Noninfective gastroenteritis and colitis, unspecified (principal); I10 Essential (primary) hypertension; R50.9 Fever, unspecified
CPT/HCPCS: 74177; 80053; 81001; 84145; 85025; 85651; 86140; 96360; 96361; 96365; 96366; 96375; 99284; C9803; J2405; Q9967; U0003; U0005

== ENCOUNTER → 2022-01-29 14:14 | Outpatient (POV) | payer BC, SELFPAY ==
[2022-01-29 14:22] VITALS: BP 137/62; PULSE 82; RESP 20; BMI 40.7
--- NOTE | 2022-01-29 15:43 | A.OFFVIS_ITS ---
[facility] Pain Management SOAP Note Subjective:: Patient is a pleasant 51-year-old who presents today for follow-up and medication refills. We are currently treating the patient for chronic low back pain, sacroiliitis. Patient rates her pain today a 4 out of 10. She states her pain is all in her mid back flank area. She states that this started about 1 to 2 weeks ago and describes it as an aching sensation. She did just have blood work last week and stated that she did get a phone call stating that her BNP showed elevated levels related to her kidneys. Patient is stating at today's visit that she could possibly have kidney stones. Patient is currently managed with tramadol 50 mg 4 times a day. She denies any side effects to this medication. She states this medication adequately manages her pain. Her Maynor is [phone]. Its been reviewed and appropriate. Review of Systems: General: No recent weight changes, no fever, no sleep disturbances Respiratory: No cough, no shortness of air, no recurring pulmonary infections Cardiovascular/peripheral vascular: No chest pain, no palpitations, no edema, no shortness of breath Gastrointestinal: No new onset incontinence, normal bowel movements reported Genitourinary: No new onset incontinence Musculoskeletal: Right flank pain Psychiatric: [Normal mood/affect] Neurological: [Denies weakness in extremities], [denies balance issues] Objective:: Physical Exam: General: Alert and oriented x3, no acute distress, pleasant and cooperative Lungs: Respirations even and unlabored, symmetrical chest expansion Eyes: PERRL Musculoskeletal: Flexion and extension of lumbar [spine] somewhat guarded secondary to pain, [antalgic gait noted] Neurological: Speech clear, no gross sensory deficit Assessment:: Chronic low back pain, sacroiliitis Plan:: Patient has had right flank pain over the last week or two. Patient is scheduled to have repeat labs next week to verify her previous findings related to her kidneys. At this time we will not do any injective therapy. I will reorder the patient's tramadol 50 mg 4 times a day and give a 6-month supply of this medication. We will schedule the patient for a 6-month follow-up. I have discussed with the patient that she can call us before then if her symptoms do not resolve or are not related to a kidney infection or kidney stones. Patient will return to clinic in 6 months for follow-up and reevaluation of symptoms. Patient has been instructed to contact the clinic with any concerns before the next appointment. Dr. Sr has reviewed this note and agrees with this plan of care. This note was dictated using voice recognition software and make contain errors or omissions. PFSH PFSH Social History Smoking Status: Never smoker second hand exposure: No alcohol intake: never substance use type: denies use current occupational status: employed household members: spouse and children housing: house current occupation: [employer] current occupational exposures/hazards: No caffeine: Yes
== END | disposition home or self-care (01) ==
PROVIDERS: PCP Family Medicine; Visit Provider Nurse Practitioner Family
DX: M46.1 Sacroiliitis, not elsewhere classified (principal); M54.50 Low back pain, unspecified; G89.29 Other chronic pain
CPT/HCPCS: 99212; G0463

== ENCOUNTER → 2022-04-04 11:46 | Outpatient (CLI) | payer BC, SELFPAY ==
[2022-04-04 13:03] LABS: Basophils # 0.1 K/mm3 (0-0.2); Basophils % 1.5 % (0.1-2.0); Eosinophils # 0.2 K/mm3 (0.0-0.4); Eosinophils % 3.5 % (0.1-12.0); Hematocrit 44.1 % (37.0-47.0); Lymphocytes # 1.5 K/mm3 (0.7-4.5); Lymphocytes % 27.6 % (10-50); Mean Corpuscular HGB Conc 31.8 g/dL (31.8-35.4); Mean Corpuscular Hemoglobin 29.7 pg (27.0-31.2); Mean Corpuscular Volume 93.4 fl (81-99); Monocytes # 0.3 K/mm3 (0.1-1.0); Monocytes % 6.2 % (1.7-9.3); Neutrophils # 3.4 K/mm3 (1.8-7.8); Neutrophils % 61.2 % (37.0-80.0); Platelet Count 361 K/mm3 (142-424); Red Blood Count 4.72 M/mm3 (4.20-5.40); Red Cell Distribution Width 12.6 % (11.5-17.5); White Blood Count 5.5 K/mm3 (4.8-10.8)
== END ==
PROVIDERS: PCP Family Medicine; Visit Provider Family Medicine
DX: Z20.822 Contact with and (suspected) exposure to COVID-19 (principal)
CPT/HCPCS: 36415; 85025; 87275; 87276; C9803; U0003; U0005

== ENCOUNTER 2022-06-26 07:46 | Day surgery (SDC) | payer BC, SELFPAY ==
[2022-03-31 16:17] VITALS: BMI 40.7
[2022-06-22 13:09] VITALS: BMI 39.8
[2022-06-26 08:13] VITALS: BP 152/78; PULSE 84; RESP 18; TEMP 36.7; O2SAT 98
[2022-06-26 08:23] VITALS: O2SAT 98
--- NOTE | 2022-06-26 08:27 | P.PN_ITS ---
[facility] Disclaimer: The information contained in this section may have been updated after the patient was seen, as this information can be updated by other users. Medical History Anxiety Arthritis Hypertension Pneumonia Urinary tract infection Surgical History H/O tubal ligation History of section Family History Mother Lymphoma Family history of macular degeneration Father Family history of Alzheimer's disease Grandmother Family history of stroke Other Family history of hypertension Social History Smoking Status: Never smoker second hand exposure: No alcohol intake: never substance use type: denies use current occupational status: employed Travel in the last 8 weeks: Inside the [place] household members: spouse and children housing: house current occupation: [employer] current occupational exposures/hazards: No caffeine: Yes do you feel safe at home: Yes victim of physical abuse: No victim of emotional abuse: No victim of sexual abuse: No would you like helpful sources: No [facility] Anesthesia Checklist Patient Identification Patient Identification: Arm Band and Verbal (Name & ) Structural Data Admitted From: Home Planned Operative Procedure/s: Colonoscopy Consent for Planned Operative Procedure(s) Verified: Yes NPO Status Verified Time NPO: 00:00 Additional verifications Anesthesia Reactions: No Hx Blood Transfusions: No Blood Transfusion Reaction: No Airway Assessment C-Spine Mobility Assessed: Yes TMJ Mobility Assessed: Yes Dentition: Partials Neurological Assessment Level of Consciousness: Awake Hx Seizures: No Numbness or tingling in extremities: No Anesthesia Plan Anesthesia Risk discussed: Yes Anesthesia Plan: Verified ASA Class: III Anesthesia Type: MAC
[2022-06-26 09:07] VITALS: BP 95/42; PULSE 94; RESP 16; TEMP 36.1; O2SAT 90
--- NOTE | 2022-06-26 09:07 | SUR.PHASEII ---
Pt arrived to post-op with oral airway in place. o2 2L applied to airway.
--- NOTE | 2022-06-26 09:07 | HMH.SCOPE ---
Procedure: Date: 06/26/22 Patient Date of :: 1970 Procedure Performed:: Total colonoscopy to terminal ileum Indications:: Patient is a 52-year-old female referred for initial screening colonoscopy Performing Provider:: Juan R Harris MD Referring Provider:: Shamar Mirza MD Sedation:: MAC sedation Procedure:: Patient history was obtained and appropriate physical examination was performed. Patient's medications and allergies were reviewed. Informed consent was obtained after explaining the benefits, alternatives, and risks of the procedure including, but not limited to, bleeding, perforation, missed lesions, and adverse reaction to anesthesia medications. Patient was transported to endoscopy procedure room. Patient was connected to monitoring devices. Throughout the procedure the patient's blood pressure, pulse, and oxygen saturations were monitored continuously. Patient identification and planned procedure were verified by the staff. Patient was positioned in lateral decubitus position. Digital anorectal exam was performed. Variable stiffness Olympus colonoscope was inserted and advanced under direct visualization to the cecum. Adequacy of the colonic preparation was noted. The colonoscope was advanced a short distance into the terminal ileum. The colonoscope was then slowly withdrawn while carefully examining the color, texture, anatomy, and integrity of the mucosoa circumferentially. Within the rectum retroflexion was performed. Colonoscope was then withdrawn. Findings:: She had particular liquid stool with a few stool balls and some undigested vegetable matter throughout the colon resulting in fair preparation. Decent visualization was achieved with thorough irrigation and suctioning. There were no polyps. She did have a few rare diverticuli. There were nonpathologic appearing internal hemorrhoids. Impression: Fair preparation Rare diverticuli Recommendations:: Given the fact that this is the patient's initial screening colonoscopy and due to suboptimal preparation recommend repeat colonoscopy 3 to 5 years likely with multi day prep Complications:: None immediately apparent Estimated blood obtained (mL): 0
[2022-06-26 09:17] VITALS: BP 107/67; PULSE 67; RESP 18; O2SAT 100
[2022-06-26 09:27] VITALS: BP 112/72; PULSE 70; RESP 18; O2SAT 100
[2022-06-26 09:40] VITALS: BP 149/76; PULSE 69; RESP 18; O2SAT 95
--- NOTE | 2022-06-26 09:54 | SUR.PHASEII ---
As pt started to dress, said felt dizzy and seemed a little unsteady. Instructed pt to lie back down, BP 159/73, p-73. No C/O at this time. Will continue to monitor for a few more minutes. at bedside.
--- NOTE | 2022-06-26 09:59 | SUR.PHASEII ---
Pt says feeling better, no longer dizzy and wants to go home. VSS. w/c pt to car, no C/O.
== END 2022-06-26 09:45 | disposition home or self-care (01) ==
PROVIDERS: PCP Family Medicine; Visit Provider Surgery
PROC: 0DJD8ZZ Inspection of Lower Intestinal Tract, Via Natural or Artificial Opening Endoscopic (ICD-10-PCS; CPT 45378; principal; 2022-06-26 08:30)
DX: Z12.11 Encounter for screening for malignant neoplasm of colon (principal); Z79.899 Other long term (current) drug therapy
CPT/HCPCS: 45378; J2704

== ENCOUNTER → 2022-07-27 12:53 | Outpatient (POV) | payer BC, SELFPAY ==
--- NOTE | 2022-07-27 13:03 | A.OFFVIS_ITS ---
[facility] Pain Management SOAP Note Subjective:: Patient is a pleasant 52-year-old female who presents today for 6-month follow- up and medication refill. We are currently treating the patient for chronic low back pain, sacroiliitis. Today she rates her pain a 5 out of 10. Patient denies any new trauma or injury. Patient denies any change location or type of pain she experiences. Patient does state her pain is all primarily in her low back and describes it as a aching sensation. Patient is currently managed with tramadol 50 mg 4 times a day. Patient denies any side effects from this medication. She is requesting a refill at today's visit. Her Maynor is [phone]. Its been reviewed and appropriate. Review of Systems: General: No recent weight changes, no fever, no sleep disturbances Respiratory: No cough, no shortness of air, no recurring pulmonary infections Cardiovascular/peripheral vascular: No chest pain, no palpitations, no edema, no shortness of breath Gastrointestinal: No new onset incontinence, normal bowel movements reported Genitourinary: No new onset incontinence Musculoskeletal: Low back pain Psychiatric: [Normal mood/affect] Neurological: [Denies weakness in extremities], [denies balance issues] Objective:: Physical Exam: General: Alert and oriented x3, no acute distress, pleasant and cooperative Lungs: Respirations even and unlabored, symmetrical chest expansion Eyes: PERRL Musculoskeletal: Flexion and extension of lumbar [spine] somewhat guarded secondary to pain, [antalgic gait noted] Neurological: Speech clear, no gross sensory deficit ORT score updated with low risk Assessment:: Chronic low back pain, sacroiliitis Plan:: Patient continues to experience significant pain in her low back but she is doing well with her current medication regimen. I will refill her tramadol 50 mg 4 times a day and provide 6 months worth of refills. Patient will return to clinic in 6 months for reevaluation of symptoms, medication refill and follow- up. Patient has been instructed to contact the clinic with any concerns before the next appointment. Dr. Sr has reviewed this note and agrees with this plan of care. This note was dictated using voice recognition software and make contain errors or omissions. [facility] Disclaimer: The information contained in this section may have been updated after the patient was seen, as this information can be updated by other users. Medical History Anxiety Arthritis Hypertension Pneumonia Urinary tract infection Surgical History H/O tubal ligation History of section Family History Mother Lymphoma Family history of macular degeneration Father Family history of Alzheimer's disease Grandmother Family history of stroke Other Family history of hypertension Social History Smoking Status: Never smoker second hand exposure: No alcohol intake: never substance use type: denies use current occupational status: employed Travel in the last 8 weeks: Inside the [place] household members: spouse and children housing: house current occupation: [employer] current occupational exposures/hazards: No caffeine: Yes do you feel safe at home: Yes victim of physical abuse: No victim of emotional abuse: No victim of sexual abuse: No would you like helpful sources: No
[2022-07-27 13:55] VITALS: BP 140/80; PULSE 76; RESP 18; O2SAT 98; BMI 38.9
== END | disposition home or self-care (01) ==
PROVIDERS: PCP Family Medicine; Visit Provider Nurse Practitioner Family
DX: M54.50 Low back pain, unspecified (principal); M46.1 Sacroiliitis, not elsewhere classified; G89.29 Other chronic pain
CPT/HCPCS: 99212; G0463

== ENCOUNTER → 2022-10-28 16:32 | Outpatient (CLI) | payer BC, SELFPAY | PROVIDERS: Visit Provider Nurse Practitioner Family | DX: S91.101A Unspecified open wound of right great toe without damage to nail, initial encounter (principal); B35.1 Tinea unguium | CPT/HCPCS: 87102; 87206; 87220 ==

== ENCOUNTER → 2022-11-19 08:50 | Outpatient (CLI) | payer BC, SELFPAY ==
--- NOTE | 2022-11-19 08:57 | XR_ITS ---
FINAL REPORT CLINICAL HISTORY: Foot Pain FINDINGS: Left foot Three views were obtained. There is no acute fracture or dislocation. There are mild degenerative changes. There is calcaneal spurring. No soft tissue abnormality is identified. IMPRESSION: Mild degenerative changes. Reviewed, Interpreted and Dictated by Juan R Brambila III, MD Transcribed by America Rollins Authenticated and [facility]
--- NOTE | 2022-11-19 08:57 | XR_ITS ---
FINAL REPORT CLINICAL HISTORY: ankle pain FINDINGS: Left ankle Three views were obtained. There is no acute fracture or dislocation. There are mild degenerative changes. There are chronic calcifications posterior to the distal tibia. No acute soft tissue abnormality is identified. IMPRESSION: Degenerative and chronic findings. Reviewed, Interpreted and Dictated by Juan R Brambila III, MD Transcribed by America Rollins Authenticated and [facility]
== END ==
PROVIDERS: PCP Family Medicine; Visit Provider Nurse Practitioner Family
DX: M79.672 Pain in left foot (principal); M25.572 Pain in left ankle and joints of left foot
CPT/HCPCS: 73610; 73630

== ENCOUNTER → 2023-01-25 13:56 | Outpatient (POV) | payer BC, SELFPAY ==
--- NOTE | 2023-01-25 14:18 | EXP.PAIN.SOA ---
[facility] Pain Management SOAP Note Subjective:: Patient is a pleasant 52-year-old female who presents today for 6-month follow-up. We are currently treating the patient for chronic low back pain, sacroiliitis. Today she rates her pain a 0 out of 10. Patient states that she has continued to do well since our last visit and has not had any new injury or trauma. Patient does state that she continues to have occasional low back pain however it is doing well with the tramadol 50 mg 4 times a day. Patient does state that not every day does she have to take this medication 4 times. She denies any side effects from this medication. Her Maynor is [phone]. Its been reviewed and appropriate. Review of Systems: General: No recent weight changes, no fever, no sleep disturbances Respiratory: No cough, no shortness of air, no recurring pulmonary infections Cardiovascular/peripheral vascular: No chest pain, no palpitations, no edema, no shortness of breath Gastrointestinal: No new onset incontinence, normal bowel movements reported Genitourinary: No new onset incontinence Musculoskeletal: Low back pain Psychiatric: [Normal mood/affect] Neurological: [Denies weakness in extremities], [denies balance issues] Objective:: Physical Exam: General: Alert and oriented x3, no acute distress, pleasant and cooperative Lungs: Respirations even and unlabored, symmetrical chest expansion Eyes: PERRL Musculoskeletal: Flexion and extension of lumbar [spine] somewhat guarded secondary to pain, [antalgic gait noted] Neurological: Speech clear, no gross sensory deficit Assessment:: Chronic low back pain, sacroiliitis Plan:: Patient continues to do well with her current medication regimen. I will refill her tramadol 50 mg 4 times a day and provide a 6-month supply of this medication. Patient will return to clinic in 6 months for reevaluation of symptoms and medication refill. Patient has been advised of risks of oversedation with the prescribed medication. Narcan has been offered to the patient in the event of oversedation. Patient has been advised that a family member should also be educated regarding administration of Narcan. Patient has been instructed to contact the clinic with any concerns before the next appointment. Dr. Sr has reviewed this note and agrees with this plan of care. This note was dictated using voice recognition software and make contain errors or omissions. [facility] Disclaimer: The information contained in this section may have been updated after the patient was seen, as this information can be updated by other users. Medical History Anxiety Arthritis Hypertension Pneumonia Urinary tract infection Surgical History H/O tubal ligation History of section Family History Mother Lymphoma Family history of macular degeneration Father Family history of Alzheimer's disease Grandmother Family history of stroke Other Family history of hypertension Social History Smoking Status: Never smoker second hand exposure: No alcohol intake: never substance use type: denies use current occupational status: employed Travel in the last 8 weeks: None household members: spouse and children housing: house current occupation: [employer] current occupational exposures/hazards: No caffeine: Yes do you feel safe at home: Yes victim of physical abuse: No victim of emotional abuse: No victim of sexual abuse: No would you like helpful sources: No
[2023-01-25 15:21] VITALS: BP 138/48; PULSE 63; RESP 18; O2SAT 97; BMI 37.5
== END | disposition home or self-care (01) ==
PROVIDERS: PCP Family Medicine; Visit Provider Nurse Practitioner Family
DX: M54.50 Low back pain, unspecified (principal); G89.29 Other chronic pain; M46.1 Sacroiliitis, not elsewhere classified
CPT/HCPCS: 99212; G0463

== ENCOUNTER → 2023-04-26 15:43 | Outpatient (CLI) | payer BC, SELFPAY ==
--- NOTE | 2023-04-26 15:49 | ECG_ITS ---
APPROVED REPORT Exam: Resting ECG HR:55 bpm ECG Measurements Heart Rate 55 AXES ND 157 P 70 QRSd 89 QRS 82 QT 436 T 74 QTc 424 Conclusion SINUS BRADYCARDIA BORDERLINE ECG UNCONFIRMED REPORT Electronically signed by : Damon Espino MD 04/28/2023 17:13:43
--- NOTE | 2023-04-26 16:20 | XR_ITS ---
PROCEDURE INFORMATION: Exam: XR Chest Exam date and time: 04/26/2023 4:22 PM Age: 53 years old Clinical indication: Condition or disease; Other: Hypertension TECHNIQUE: Imaging protocol: Radiologic exam of the chest. Views: 2 views. COMPARISON: CR CXR2V XR chest 2V 09/15/2017 4:53 AM FINDINGS: Lungs: Unremarkable. No consolidation. Pleural spaces: Unremarkable. No pleural effusion. No pneumothorax. Heart/Mediastinum: Unremarkable. No cardiomegaly. Bones/joints: No acute findings. IMPRESSION: No acute pulmonary findings.
[2023-04-26 17:17] LABS: Basophils % 0.5 % (0.1-2.0); Eosinophils # 0.2 K/mm3 (0.0-0.4); Eosinophils % 2.2 % (0.1-12.0); Hematocrit 38.1 % (37.0-47.0); Hemoglobin 13.1 g/dL (12.2-16.2); Lymphocytes # 2.7 K/mm3 (0.7-4.5); Lymphocytes % 37.5 % (10-50); Mean Corpuscular HGB Conc 34.4 g/dL (31.8-35.4); Mean Corpuscular Hemoglobin 31.4 pg (27.0-31.2); Mean Corpuscular Volume 91.2 fl (81-99); Mean Platelet Volume 8.1 fl (7.4-10.4); Monocytes # 0.3 K/mm3 (0.1-1.0); Monocytes % 4.2 % (1.7-9.3); Neutrophils % 55.6 % (37.0-80.0); Platelet Count 326 K/mm3 (142-424); Red Blood Count 4.18 M/mm3 (4.20-5.40); Red Cell Distribution Width 12.8 % (11.5-17.5); White Blood Count 7.2 K/mm3 (4.8-10.8)
[2023-04-26 18:22] LABS: Alanine Aminotransferase 34 U/L (12-78); Albumin Level 4.2 g/dl (3.5-5.0); Albumin/Globulin Ratio 1.4 (1.1-1.8); Alkaline Phosphatase 76 U/L (38-126); Anion Gap 12.4 mEq/L (5-15); Aspartate Amino Transferase 37 U/L (14-36); Bilirubin,Total 0.4 mg/dl (0.2-1.3); Blood Urea Nitrogen 27 mg/dl (7-17); Calcium 9.4 mg/dl (8.4-10.2); Carbon Dioxide 31 mmol/L (22.0-30.0); Chloride 100 mmol/L (98-107); Estimated Glomerular Filt Rate 52 ml/min (>60); GFR (African American) 62 ML/MIN (>60); Glucose 133 mg/dl (74-100); Potassium 4.4 mmoL/L (3.5-5.1); Sodium 139 mmol/L (136-145); Total Protein,Serum 7.2 g/dl (6.3-8.2)
[2023-05-04 21:08] LABS: 1,25 Dihydroxy Vitamin D 43 pg/mL (.); 1,25-Dihydroxy, Vitamin D-2 <10 pg/mL (.); 1,25-Dihydroxy, Vitamin D-3 41 pg/mL (.)
== END ==
LOC: RT 15:44
PROVIDERS: PCP Family Medicine; Visit Provider Podiatrist
DX: M25.572 Pain in left ankle and joints of left foot (principal); M76.62 Achilles tendinitis, left leg; M79.672 Pain in left foot; M25.472 Effusion, left ankle; Z68.37 Body mass index [BMI] 37.0-37.9, adult
CPT/HCPCS: 36415; 71046; 80053; 82652; 85025; 93005

== ENCOUNTER → 2023-04-28 08:33 | Outpatient (CLI) | payer BC, SELFPAY ==
--- NOTE | 2023-04-28 08:34 | MR_ITS ---
FINAL REPORT CLINICAL HISTORY: Left ankle pain COMPARISON: None FINDINGS: Multiplanar MR imaging of the left ankle was performed without contrast. The bony structures are intact without evidence of fracture. There is mild degenerative change. No osteochondral lesion is identified. The ligaments are intact without evidence of injury. There is posterior tibial and peroneal longus tenosynovitis. There is distal Achilles tendinitis without intrasubstance tear distally. There is adjacent soft tissue edema. There is a small amount of fluid in the retrocalcaneal bursa which may represent retrocalcaneal bursitis. There is a small partial tear at the posterior insertion of the plantar aponeurosis. No significant joint effusion is seen. The musculature is intact. There is a lobular cystic mass at the lateral midfoot measuring 26 mm consistent with a ganglion cyst. IMPRESSION: Small partial tear plantar aponeurosis. 26 mm ganglion cyst. Tenosynovitis and tendinitis as above. Reviewed, Interpreted and Dictated by Juan R Brambila III, MD Transcribed by Melissa Worthington Authenticated and [facility]
== END ==
LOC: RAD 08:34
PROVIDERS: PCP Family Medicine; Visit Provider Podiatrist
DX: M25.572 Pain in left ankle and joints of left foot (principal); M76.62 Achilles tendinitis, left leg; M92.62 Juvenile osteochondrosis of tarsus, left ankle; S86.012A Strain of left Achilles tendon, initial encounter
CPT/HCPCS: 73721

== ENCOUNTER 2023-05-12 06:04 | Day surgery (SDC) | payer BC, SELFPAY ==
[2023-05-11 09:38] VITALS: BMI 35.4
[2023-05-12] VITALS (10 sets, daily range): BP systolic 121–160; BP diastolic 57–102; PULSE 56–93; RESP 12–18; TEMP 36.3–37; O2SAT 93–100
[2023-05-12] MEDS: LACTATED RINGERS 1000ML 1,000 ML 25 ML IV (06:21)
[2023-05-12] MEDS: CEFAZOLIN SODIUM 2 GM in 0.9 % SODIUM CHLORIDE 100 ML IV (07:23)
--- NOTE | 2023-05-12 08:03 | P.PNANES_ITS ---
[facility] Disclaimer: The information contained in this section may have been updated after the patient was seen, as this information can be updated by other users. Medical History Anxiety Arthritis Hypertension Pneumonia Urinary tract infection Surgical History H/O tubal ligation History of section Family History Mother Lymphoma Family history of macular degeneration Father Family history of Alzheimer's disease Grandmother Family history of stroke Other Family history of hypertension Social History Smoking Status: Never smoker second hand exposure: No alcohol intake: never substance use type: denies use current occupational status: employed Travel in the last 8 weeks: None household members: spouse and children housing: house current occupation: [employer] current occupational exposures/hazards: No caffeine: Yes do you feel safe at home: Yes victim of physical abuse: No victim of emotional abuse: No victim of sexual abuse: No would you like helpful sources: No [facility] Anesthesia Checklist Patient Identification Patient Identification: Verbal (Name & ) Structural Data Admitted From: Home Planned Operative Procedure/s: achilles tendon rpr Consent for Planned Operative Procedure(s) Verified: Yes NPO Status Verified Time NPO: 00:00 Additional verifications Anesthesia Reactions: No Hx Blood Transfusions: No Blood Transfusion Reaction: No Airway Assessment Mallampati Score:: Class II C-Spine Mobility Assessed: Yes TMJ Mobility Assessed: Yes Dentition: Partials Neurological Assessment Level of Consciousness: Awake, Alert and Appropriate Anesthesia Plan Anesthesia Risk discussed: Yes Anesthesia Plan: Verified ASA Class: II Anesthesia Type: General w/block
--- NOTE | 2023-05-12 09:17 | EXP.OP.NOTE ---
Date of procedure: 05/12/23 Pre-op Diagnosis:: Left Achilles tendinitis Left partial Achilles tear Left retrocalcaneal exostosis Post-op Diagnosis:: Same Procedure performed:: Left Achilles debridement and repair Left partial excision calcaneus Application of allograft Surgeon:: Greta Fox DPM POWER PLANT ASSISTANT:: Marco Antonio Coronado Anesthesia: GETA and regional (Left popliteal nerve block) Estimated blood loss (mL): 10 Clinical Note:: 53F obese with left Achilles pain and Jose's deformity. Patient has had symptoms for over a year. She was initially treated by her PCP and then referred for surgical evaluation. She has tried and failed conservative care including modification of shoe gear, modification of activity, orthotics, icing, elevation, NSAIDs, pain management (Tylenol, tramadol), home stretching/PT, immobilization in fracture boot, heel lifts. The patient has been instructed on the planned procedure, all risk versus benefits of the procedure discussed. These include but are not limited to: bleeding, infection, nerve and blood vessel damage, need for further surgery, delay in healing of soft tissue or bone, failure of bones to heal, non-union, mal-union, failure of the implant, prolonged pain and recovery, CRPS/RSD, DVT/PE and anesthetic complications. No guarantees were given. All questions fully answered. The patient verbalized understanding and agreed to proceed with surgery. Written consent was obtained. Operative findings:: Distal Achilles had insertional tearing. Achilles about 3 cm proximal to the insertion on the calcaneus had hypertrophy and thickening with fibrotic scar. A 1.5 cm longitudinal tear noted. No signs of infection. Calcaneus had significant spurring superiorly and posteriorly. Operative note:: On this date and time patient was deemed an appropriate surgical candidate. Anesthesia performed a pre-op regional popliteal nerve block. With informed consent signed, the patient was taken to the operating theater. The patient was positioned supine. General anesthesia was induced. Tourniquet was applied to the thigh at 250 mmHg. Patient positioned prone and the right lower extremity was prepped and draped in normal sterile fashion. IV Ancef infused. Left Achilles debridement and repair: Attention was directed to the posterior leg where a longitudinal incision was mapped out. Dissection down to the level of the peritenon which was preserved for later closure. Achilles tendon had some thickening hypertrophy and calcific debris. 15 blade and forceps used to sharply excisionally debride nonviable thick fibrotic Achilles tendon. Underlying Achilles there was bursitis noted. It was debrided. Wounds flushed with saline. Left partial excision calcaneus (retrocalcaneal exostectomy): Attention was then directed to the underlying calcaneus where significant spurring was appreciated. Saw was used to resect the calcaneal spur which was sent to pathology as a specimen. A rasp was then used to smooth down bone edges so there were no bony prominences posteriorly. Wound was flushed with saline. Application of graft: Attention was directed back to the Achilles. In standard technique in accordance with manufacture guidelines an Arthrex Fiber was inserted into the posterior heel. Bone anchors were drilled proximally x2 and suture threaded through the Achilles tendon. The Achilles was tensioned and secured with bone anchor inferiorly. Good tension noted to the Achilles. The previous debridement and longitudinal tear site was repaired in an over and over fashion with FiberWire. Wounds were flushed with saline. Next due to the amount of defect of the Achilles tendon, and amniotic graft was then inserted over the Achilles tendon. Vicryl was used to repair peritenon over the tendon and graft. Deep closure with Vicryl. Next the remaining piece of the graft was inserted prior to skin closure. 2-0 nylon used to reapproximate skin in an interrupted and mattress suture fashion. Skin was cleansed. A well-padded posterior splint below knee was then applied to the left lower extremity. Tourniquet deflated and immediate hyperemic response was noted to the digits. Patient was woken with vital signs stable neurovascular status intact. Patient appeared to tolerate procedure and anesthesia well without complication. Materials: Arthrex Fibertak speed bridge, Jump Start antimicrobial wound dressing x1 (2x5 ), Aflex amniotic graft x1 (7x7cm) Plan/discharge: Maintain dressing clean dry and intact to the left lower extremity. Nonweightbearing with crutches/walker/rolling knee scooter. Ice, polar pack behind the left knee and elevate on 2 pillows. Postop left foot x-rays 3 views. Take Rx as directed. Follow-up as scheduled in 1 week. Tourniquet time (min): 110 Condition: stable Disposition: same day Specimens:: Left achilles tendon Left calcaneus Complications:: None
--- NOTE | 2023-05-12 09:28 | P.PNANES_ITS ---
[facility] Anesthesia Record Part I Anesthesia Record I Intake, IV Amount: 1,800 Hydration: Adequate Estimated blood loss (mL): 0 Urine output (mL): 0 Blood Pressure: 160/95 SaO2: 95 Pulse Rate: 93 Airway Patency: Patent Respiratory Rate: 12 Temperature: 97.6 F Patient is:: Awake and Stable Stable to PACU at:: 09:26
--- NOTE | 2023-05-12 09:30 | XR_ITS ---
FINAL REPORT CLINICAL HISTORY: Post op achilles, retrocalc FINDINGS: Left ankle Three views were obtained. There are presumed postoperative changes in the superior calcaneal tuberosity. Overlying splint is identified. There is a plantar calcaneal spur. IMPRESSION: Presumed postoperative changes. Reviewed, Interpreted and Dictated by Juan R Brambila III, MD Transcribed by America Rollins Authenticated and [facility]
--- NOTE | 2023-05-12 12:55 | EXP.ANES.II ---
[facility] Anesthesia Record Part II Anesthesia Record Part II Discharge Time: 09:55 Destination: Surgical Day Care (OP Surgery) PACU nurse assessment reviewed?: Yes Patient Condition:: Good Anesthesia Complications:: None Swallowing reflex intact?: Yes Airway Patency: Patent Cyanosis?: No Blood Pressure: 131/81 SaO2: 98 Respiratory Rate: 16 Pulse Rate: 67 Temperature: 98.6 F Mental Status: Alert & Oriented Pain level:: 0 Nausea and/or vomitting:: None Intake, IV Amount: 0 Hydration: Adequate
== END 2023-05-12 10:20 | disposition home or self-care (01) ==
PROVIDERS: PCP Family Medicine; Visit Provider Podiatrist
PROC: (CPT 27654; principal; 2023-05-12 07:30)
DX: S86.012A Strain of left Achilles tendon, initial encounter (principal); M76.62 Achilles tendinitis, left leg; M89.8X7 Other specified disorders of bone, ankle and foot; M92.62 Juvenile osteochondrosis of tarsus, left ankle; I10 Essential (primary) hypertension; Z79.899 Other long term (current) drug therapy; M25.572 Pain in left ankle and joints of left foot; M77.32 Calcaneal spur, left foot
CPT/HCPCS: 27654; 28120; 73610; C1713; C1762; J2405

== ENCOUNTER 2023-07-26 14:19 | Outpatient (POV) | payer BC, SELFPAY ==
[2023-07-26 14:40] VITALS: BP 151/82; PULSE 56; RESP 18; O2SAT 97; BMI 37.2
--- NOTE | 2023-07-26 14:49 | EXP.PAIN.SOA ---
[facility] Pain Management SOAP Note Subjective:: Patient is a pleasant 53-year-old female who presents today for medication refill and follow-up. We are currently treating the patient for chronic low back pain, sacroiliitis. Today she rates her pain a 6 out of 10. Patient does state from our last visit she has had left Achilles tendon surgery back on May [address] Fox. Patient states she continues to have pain in and around this area along with neuropathy all into the left foot. Patient does describe the pain as an aching, throbbing sensation with numbness and tingling. Patient does state that the pain is interfering with her ability perform activities of daily living such as cooking cleaning. Patient states that she has even altered her gait due to the pain and is now experiencing more problems with her right hip due to this. Patient is currently managed with tramadol 50 mg 4 times a day. She denies any side effects from this medication. She is requesting refills at today's visit. Her Maynor has been reviewed and is appropriate. Review of Systems: General: No recent weight changes, no fever, no sleep disturbances Respiratory: No cough, no shortness of air, no recurring pulmonary infections Cardiovascular/peripheral vascular: No chest pain, no palpitations, no edema, no shortness of breath Gastrointestinal: No new onset incontinence, normal bowel movements reported Genitourinary: No new onset incontinence Musculoskeletal: Left calf/foot pain Psychiatric: [Normal mood/affect] Neurological: [Denies weakness in extremities], [denies balance issues] Objective:: Physical Exam: General: Alert and oriented x3, no acute distress, pleasant and cooperative Lungs: Respirations even and unlabored, symmetrical chest expansion Eyes: PERRL Musculoskeletal: Flexion and extension of left ankle somewhat guarded secondary to pain, [antalgic gait noted] Neurological: Speech clear, no gross sensory deficit Assessment:: Chronic low back pain, sacroiliitis, acute status post left Achilles tendon surgery Plan:: Patient is experiencing worsening pain in and around her left calf and ankle related to a recent surgery on her Achilles tendon done in May. Patient did have limited range of motion of her left ankle during today's exam. I have discussed with the patient that she may have beneficial relief with a left sural nerve block. Risk and benefits were discussed with the patient however at this time she would like to wait. Patient is scheduled to see Dr. Fox tomorrow for follow-up. She states that she will discuss this injection with her and let us know if she would like to proceed forward with this plan of care. I have told her that she can call and schedule this injection over the phone. I will send in refills of her tramadol 50 mg 4 times a day and provide a 6-month supply of this medication. Patient will be scheduled for standard medication refill in 6 months. Risks and benefits of the medication have been explained in detail to the patient. The patient does understand the risk of dependence on the medication when given over a prolonged period. Patient has been advised of risks of oversedation with the prescribed medication. Narcan has been offered to the paitent in the event of oversedation. Patient has been advised that a family member should also be educated regarding administration of Narcan. The patient has been advised to consult with his/her primary care provider and pharmacist regarding drug-drug interaction of medications currently prescribed. Patient has been prescribed a controlled substance after being counseled on the medication, medication safety, and possible side effects. Opioid contract was reviewed and signed by the patient, and that they have agreed to all of the terms set forth by our compliance program. Patient has been instructed to contact the clinic with any concerns before the next appointment. Dr. Sr has reviewed this note and agrees with this plan of care. This note was dictated using voice recognition software and make contain errors or omissions. [facility] Disclaimer: The information contained in this section may have been updated after the patient was seen, as this information can be updated by other users. Medical History Anxiety Arthritis Hypertension Pneumonia Urinary tract infection Surgical History H/O tubal ligation History of section Family History Mother Lymphoma Family history of macular degeneration Father Family history of Alzheimer's disease Grandmother Family history of stroke Other Family history of hypertension Social History Smoking Status: Never smoker second hand exposure: No alcohol intake: never substance use type: denies use current occupational status: employed Travel in the last 8 weeks: None household members: spouse and children housing: house current occupation: [employer] current occupational exposures/hazards: No caffeine: Yes do you feel safe at home: Yes victim of physical abuse: No victim of emotional abuse: No victim of sexual abuse: No would you like helpful sources: No
== END 2023-07-26 23:59 | disposition home or self-care (01) ==
PROVIDERS: PCP Family Medicine; Visit Provider Nurse Practitioner Family
DX: M54.50 Low back pain, unspecified (principal); G89.29 Other chronic pain; M46.1 Sacroiliitis, not elsewhere classified; M25.572 Pain in left ankle and joints of left foot; G89.18 Other acute postprocedural pain
CPT/HCPCS: 99212; G0463

== ENCOUNTER 2023-08-10 14:00 | Outpatient (RCR) | payer BC, SELFPAY ==
--- NOTE | 2023-06-17 17:18 | HMH.PTOPEV ---
PT Outpatient Evaluation Rehab PT Outpatient Evaluation Start: 06/17/23 13:46 Freq: Status: Active Protocol: Document 06/17/23 13:46 DEANNESMITA (Rec: 06/17/23 17:17 KEVIN [id number]) E-signed By Pennie Burris, PT Outpatient Therapy Subjective History Subjective History Pt is a 53 y/o female who reports to PT 5 weeks s/p left achilles debridement and repair, partial excision of the calcaneus, and application of allograft performed on 05/12/23. Pt denies complications following surgery. Pt reports minimal pain of the left side of the heel and around the incision site. Pt denies numbness/tingling. Pt reports she is currently NWB in a fx boot and using a knee scooter for all mobility. Pt denies falls but reports she has become off balance on the scooter multiple times. Pt reports she has 4 steps with HR to enter her home and she uses crutches to traverse stairs without issues. Pt reports she was given a compression sock she has been wearing and using ice as needed. Pt reports she has to have help getting in/out of the car and shower otherwise is independent with ADLs. Pt reports she returns to Dr. Fox for a follow-up visit on 06/22/22. Occupation: [employer] - pending RTW date on July 21 Medical History: hypertension Edema: L ankle figure 8 56.5 cm Gait: NWB with knee scooter New diagnosis of cancer in past 12 No months? Chief Complaint Pain,Swelling,Weakness Symptom Type Ache,Sharp Symptoms Relieved By Rest/Positioning,Ice, Prescription Meds Symptoms Aggravated By Standing,Physical Activity, Walking Prior Functional Limitations None Current Functional Limitations Housework,Standing,Squatting, Recreation Activity,Walking, Stairs,Balance Symptom Description Intermittent Level of pain today (0-10) 0 Pain scale - at its best (0-10) 0 Pain scale - at its worst (0-10) 2 Ankle/Foot Eval Palpation Tenderness left Ankle/Foot Palpation Findings Tenderness Ankle/Foot Palpation Overall Comment along the incision, lateral calcaneus ROM Ankle/Foot Dorsiflexion W/Knee Flexed 2 Passive Range Motion (degrees) Ankle/Foot Plantar Flexion Active Range 2 of Motion (degrees) Ankle/Foot Eversion Active Range of 9 Motion (degrees) Ankle/Foot Inversion Active Range of 7 Motion (degrees) MMT Ankle Dorsiflexion Strength Grade Not Tested Ankle Plantarflexion Strength Grade Not Tested Foot Eversion Strength Grade Not Tested Foot Inversion Strength Grade Not Tested Lower Extremity Functional Index Activities Today, do you or would you have any difficulty at all with: a.Any of your usual work, housework or Quite a bit of difficulty school activities b. Your usual hobbies, recreational or Quite a bit of difficulty sporting activities c. Getting into or out of the bath Quite a bit of difficulty d. Walking between rooms Moderate difficulty e. Putting on your shoes or socks A little bit of difficulty f. Squatting Extreme difficulty or unable to perform activity g. Lifting an object, like a bag of A little bit of difficulty groceries from the floor h. Performing light activities around A little bit of difficulty your home i. Performing heavy activities around Quite a bit of difficulty your home j. Getting into or out of a car Quite a bit of difficulty k. Walking 2 blocks Extreme difficulty or unable to perform activity l. Walking a mile Extreme difficulty or unable to perform activity m. Going up or down 10 stairs (about 1 Extreme difficulty or unable flight of stairs) to perform activity n. Standing for 1 hour Extreme difficulty or unable to perform activity o. Sitting for 1 hour No difficulty p. Running on even ground Extreme difficulty or unable to perform activity q. Running on uneven ground Extreme difficulty or unable to perform activity r. Making sharp turns while running fast Extreme difficulty or unable to perform activity s. Hopping Extreme difficulty or unable to perform activity t. Rolling over in bed No difficulty LEFI Score Lower Extremity Functional Index Score 24 Outpatient Therapy Assessment Impairments Problems/Impairmments Palpation Tenderness,Impaired Range of Motion,Impaired Strength,Impaired Transfers, Impaired Gait Pattern,Impaired Walking,Impaired Standing, Impaired Shower/Bathing, Impaired Household Care, Impaired Stair Climbing, Impaired Incline Stepping, Impaired Stepping on Uneven Surface,Impaired Squatting, Impaired Recreational Activities,Impaired Running, Impaired Jumping,Impaired Balance,Increased Edema,Wound Care Needs,Subjective C/O Pain ,Impaired Self Care/Self Management Prognosis Rehab Potential Good Clinical Impression Consistent with Diagnosis Yes Short Term Goals Number of Weeks 3 Increase Range of Motion Yes: Improve PF AROM to at least 20 Improve Transfers Yes: report ability to transfer in/out of car I Improve Gait Pattern with Assistive Yes: proper gait mechanics Device with LRD to decrease fall risk Improve LEFI Score Yes: Improve score to at least 34 to improve overall QOL Improve Self Care/Self Management Yes Patient to be Ind w/ HEP Yes Awake Overnight Monitor Goals Number of Weeks 6-8 Decreased Palpation Tenderness 2/4 TTP of calcaneus and incision Increase Range of Motion Yes: Improve L ankle AROM to WFL Increase Strength Yes: L ankle MMT to 4-4+/5 grossly to assist with function & gait Improve Gait Pattern without Assistive Yes: proper gait mechanics in Device tennis shoe to decrease fall risk Improve Ability to Climb Stairs Yes: 4-5 steps with HR to assist with home navigation Improve Balance Yes: Tandem stance firm surface 30 without LOB to dec fall risk Improve LEFI Score Yes: Improve score to at least 50/80 to improve overall QOL Decrease Edema Yes Decrease Subjective C/O Pain Yes: Maintain pain at worst to 2/10 Patient to be Ind w/ Advanced HEP Yes Outpatient Therapy Plan of Care Treatment Plan May Include Therapeutic Exercise Including Home Yes Exercise Program Manual Therapy Techniques Yes Neuromuscular Re-education Yes Therapeutic Activities to Return to Yes Previous Functional/Work Level Gait Training Yes ADL/Self Care Education Yes Dry Needling Yes Thermal Modalities Yes Electrical Stimulation Yes Ultrasound/Phonophoresis Yes Iontophoresis Yes Orthotics/Bracing/Splinting Yes Vasopneumatic Compression Pump Yes Massage Yes Manual Lymphatic Drainage Yes Wound Care Yes Eval/Re-Eval Yes Frequency Times per week 2 Duration Number of Weeks 6-8 Addendums This patient is a candidate for social No or vocational rehab? Patient/Guardian verbally acknowledges Yes understanding of treatment program and consents to further treatment? Patient/Guardian verbally acknowledges Yes understanding of diagnosis, prognosis and goals for treatment? Eval Complexity PT Charges 04368 - Low Complexity Shoulder/Elbow Eval Shoulder Objective Measurements Elbow Objective Measurements PHYSICIAN CERTIFICATION: I certify the specified therapy services for Alicja Myas are required, authorized, and reviewed every 30 days.
--- NOTE | 2023-07-15 15:01 | HMH.RHREAS ---
Rehab Reassessment Rehab OP Re-assessment Start: 06/17/23 13:46 Freq: Status: Active Protocol: Document 07/15/23 14:52 KEVIN (Rec: 07/15/23 15:01 KEVIN [id number]) E-signed By Pennie Burris PT Lower Extremity Functional Index Activities Today, do you or would you have any difficulty at all with: a.Any of your usual work, housework or Moderate difficulty school activities b. Your usual hobbies, recreational or Moderate difficulty sporting activities c. Getting into or out of the bath A little bit of difficulty d. Walking between rooms No difficulty e. Putting on your shoes or socks No difficulty f. Squatting Moderate difficulty g. Lifting an object, like a bag of No difficulty groceries from the floor h. Performing light activities around Moderate difficulty your home i. Performing heavy activities around Quite a bit of difficulty your home j. Getting into or out of a car A little bit of difficulty k. Walking 2 blocks Moderate difficulty l. Walking a mile Quite a bit of difficulty m. Going up or down 10 stairs (about 1 Moderate difficulty flight of stairs) n. Standing for 1 hour Moderate difficulty o. Sitting for 1 hour No difficulty p. Running on even ground Extreme difficulty or unable to perform activity q. Running on uneven ground Extreme difficulty or unable to perform activity r. Making sharp turns while running fast Extreme difficulty or unable to perform activity s. Hopping Quite a bit of difficulty t. Rolling over in bed No difficulty LEFI Score Lower Extremity Functional Index Score 43 Rehab Re-assessment Subjective Subjective Pt reports she is doing well overall. Pt reports she saw her surgeon Wednesday of this week and was transitioned into a tennis shoe with heel rise. Pt states she is doing well ambulating in a regular tennis shoe without an AD, denies falls or LOB. Pt reports 5/10 achilles pain at worst with prolonged walking that improves with rest. Pt reports compliance with HEP. Pt reports she returns to her surgeon on 07/27/23. Objective Objective Notes L ankle AROM: DF 8, PF 25, Inv 22, Ev 12 L ankle MMT: DF 3+/5, PF 4-/5, Inv 4/5, Ev 4/5 Gait: mildly antaglic in tennis shoe without AD Assessment Progress Assessment Progressing as Expected Assessment Notes Pt has attended 7 PT visits consisting of aerobic exercise , ankle mobility, LE stretching/strengthening, balance/proprioception training, gait training, and modalities with good tolerance . Pt demonstrated improved L ankle AROM, strength, gait and LEFS score this date compared to the initial evaluation. Pt will continue to benefit from skilled PT to further improve subjective report of pain, ankle AROM, LE strength, balance, gait and functional activity tolerance to assist with return to PLOF. Patient goals met ST/ Goals Not Met LTG Revised Goals n/a Plan Plan Continue initial POC Frequency of Therapy 2x/week Duration of therapy 4 more weeks Time and Billing Re-Eval Time 10 Re-Eval Billing Units 1 PHYSICIAN CERTIFICATION: I certify the specified therapy services for Alicja Mays are required, authorized, and reviewed every 30 days.
== END 2023-08-10 15:00 | disposition home or self-care (01) ==
LOC: PT 14:00
PROVIDERS: PCP Family Medicine; Visit Provider Podiatrist
DX: M76.62 Achilles tendinitis, left leg; M92.62 Juvenile osteochondrosis of tarsus, left ankle; S86.012A Strain of left Achilles tendon, initial encounter
CPT/HCPCS: 97035; 97110; 97112; 97116; 97163; 97164; 97530; 97535

== ENCOUNTER 2023-08-16 10:09 | Outpatient (CLI) | payer BC, SELFPAY ==
--- NOTE | 2023-08-16 10:28 | XR_ITS ---
FINAL REPORT CLINICAL HISTORY: Postop calc resection COMPARISON: None FINDINGS: LEFT ANKLE: Three views of the left ankle were obtained. Mild degenerative changes present. There are postoperative changes from resection of the superior calcaneal tuberosity. A plantar calcaneal spur is once again identified. There is no acute fracture or dislocation. The joint spaces and mortise are intact. There is no soft tissue abnormality. IMPRESSION: Postoperative changes secondary to resection of the superior calcaneal tuberosity. Reviewed, Interpreted and Dictated by Juan R Brambila III, MD Transcribed by Brenna Sneed Authenticated and . [facility]
[2023-08-16 10:41] LABS: Basophils # 0.1 K/mm3 (0-0.2); Basophils % 0.9 % (0.1-2.0); Eosinophils # 0.1 K/mm3 (0.0-0.4); Eosinophils % 1.7 % (0.1-12.0); Hematocrit 42.3 % (37.0-47.0); Hemoglobin 13.7 g/dL (12.2-16.2); Lymphocytes # 2.3 K/mm3 (0.7-4.5); Lymphocytes % 35.1 % (10-50); Mean Corpuscular HGB Conc 32.3 g/dL (31.8-35.4); Mean Corpuscular Hemoglobin 30.9 pg (27.0-31.2); Mean Corpuscular Volume 95.6 fl (81-99); Mean Platelet Volume 7.8 fl (7.4-10.4); Monocytes # 0.3 K/mm3 (0.1-1.0); Monocytes % 4.1 % (1.7-9.3); Neutrophils # 3.9 K/mm3 (1.8-7.8); Neutrophils % 58.2 % (37.0-80.0); Platelet Count 300 K/mm3 (142-424); Red Blood Count 4.43 M/mm3 (4.20-5.40); Red Cell Distribution Width 12.8 % (11.5-17.5); White Blood Count 6.7 K/mm3 (4.8-10.8)
[2023-08-16 11:08] LABS: Erythrocyte Sedimentation Rate 15 mm/hr (0-30)
[2023-08-16 11:37] LABS: Alanine Aminotransferase 27 U/L (12-78); Albumin Level 4.5 g/dl (3.5-5.0); Albumin/Globulin Ratio 1.6 (1.1-1.8); Alkaline Phosphatase 77 U/L (38-126); Aspartate Amino Transferase 31 U/L (14-36); Bilirubin,Total 0.6 mg/dl (0.2-1.3); Blood Urea Nitrogen 37 mg/dl (7-17); Calcium 9.4 mg/dl (8.4-10.2); Carbon Dioxide 29 mmol/L (22.0-30.0); Chloride 104 mmol/L (98-107); Estimated Glomerular Filt Rate 36 ml/min (>60); GFR (African American) 44 ML/MIN (>60); Globulin 2.8 g/dL (1.3-3.2); Glucose 89 mg/dl (74-100); Sodium 139 mmol/L (136-145); Total Protein,Serum 7.3 g/dl (6.3-8.2)
[2023-08-16 11:48] LABS: C-Reactive Protein 1.7 mg/L (0-4)
== END 2023-08-16 23:59 ==
LOC: LAB 10:10
PROVIDERS: PCP Family Medicine; Visit Provider Podiatrist
DX: Z98.890 Other specified postprocedural states (principal)
CPT/HCPCS: 36415; 73610; 80053; 85025; 85651; 86140

== ENCOUNTER 2024-02-02 14:31 | Outpatient (POV) | payer BC, SELFPAY ==
[2024-02-02 15:01] VITALS: BP 117/77; PULSE 68; RESP 16; O2SAT 97; BMI 38.9
[2024-02-02 15:09] VITALS: BP 117/77; PULSE 68; RESP 16; O2SAT 97; BMI 38.9
--- NOTE | 2024-02-02 15:13 | A.OFFVIS_ITS ---
[facility] Disclaimer: The information contained in this section may have been updated after the patient was seen, as this information can be updated by other users. Medical History Urinary tract infection Pneumonia Arthritis Anxiety Hypertension Surgical History H/O tubal ligation History of section Family History Mother Lymphoma Family history of macular degeneration Father Family history of Alzheimer's disease Grandmother Family history of stroke Other Family history of hypertension Social History Smoking Status: Never smoker second hand exposure: No alcohol intake: never substance use type: denies use current occupational status: other Travel in the last 8 weeks: None household members: spouse and children housing: house current occupation: [employer] current occupational exposures/hazards: No caffeine: Yes do you feel safe at home: Yes victim of physical abuse: No victim of emotional abuse: No victim of sexual abuse: No would you like helpful sources: No PM Subjective & Objective Subjective Subjective:: Patient is a pleasant 53-year-old female who presents today for medication refill and 6-month follow-up. Today she rates her pain a 4 out of 10. She denies any new trauma or injury. Patient does state overall she has been doing well the last 6 months. Patient does state that they recently changed some of her blood pressure medication and that she has been experiencing a little bit more swelling in her lower extremities. Patient is planning to talk back with her PCP regarding this. Patient is managed with tramadol 50 mg 4 times a day from our office. She denies any side effects from this medication. Her Maynor has been reviewed and is appropriate. Review of Systems: General: No recent weight changes, no fever, no sleep disturbances Respiratory: No cough, no shortness of air, no recurring pulmonary infections Cardiovascular/peripheral vascular: No chest pain, no palpitations, no edema, no shortness of breath Gastrointestinal: No new onset incontinence, normal bowel movements reported Genitourinary: No new onset incontinence Musculoskeletal: Low back pain, left ankle pain Psychiatric: [Normal mood/affect] Neurological: [Denies weakness in extremities], [denies balance issues] Pain at rest (0-10 scale): 4 Objective Objective:: Physical Exam: General: Alert and oriented x3, no acute distress, pleasant and cooperative Lungs: Respirations even and unlabored, symmetrical chest expansion Eyes: PERRL Musculoskeletal: Flexion and extension of lumbar [spine] somewhat guarded secondary to pain, [antalgic gait noted] Neurological: Speech clear, no gross sensory deficit Has patient had previous pain injection?: No Conservative treatment options previously tried: Home exercise plan Length of treatment: Longer than 6 weeks Meds Home Medications and Allergies Home Medications ?Medication ?Instructions ?Recorded ?Confirmed ?Type bisoprolol 2.5 1 tab PO DAILY Hypertension 09/15/17 02/02/24 History mg-hydrochlorothiazide 6.25 mg tablet meloxicam 15 mg tablet 15 mg PO DAILY Pain 09/15/17 09/20/23 History lisinopril 20 mg tablet 40 mg PO DAILY blood pressure 11/05/17 09/20/23 History acetaminophen 650 mg 650 mg PO Q8H PRN Opioid Reversal 01/31/18 09/20/23 History tablet,extended release (Tylenol Arthritis Pain) sertraline 100 mg tablet 100 mg PO DAILY Depression 04/05/23 09/20/23 History gabapentin 100 mg capsule 100 mg PO TID PRN nerve pain 10 05/04/23 09/20/23 Rx days #30 caps ondansetron 4 mg disintegrating 4 mg PO Q6H nausea and vomiting 05/04/23 09/20/23 Rx tablet #30 tabs oxycodone 10 mg tablet 10 mg PO Q4H PRN painful procedure 05/10/23 09/20/23 Rx 7 days #42 tabs mupirocin 2 % topical ointment 1 applic topical BID cellulitis 3 06/22/23 09/20/23 Rx weeks #22 grams tramadol 50 mg tablet 50 mg PO QID Pain #120 tabs 07/26/23 09/20/23 Rx New Prescriptions to Start Prescriptions: Allergies Allergy/AdvReac Type Severity Reaction Status Date / Time No Known Allergies Allergy Verified 09/20/23 13:09 Assessment and Plan *Assessment and plan (1) Left ankle pain: Status: Acute Qualifiers: Chronicity: chronic Qualified Code(s): M25.572 - Pain in left ankle and joints of left foot; G89.29 - Other chronic pain Category: Medical Code(s): M25.572 - Pain in left ankle and joints of left foot (2) Back pain: Status: Acute Qualifiers: Back pain location: low back pain Chronicity: chronic Back pain laterality: bilateral Sciatica presence: with sciatica Sciatica laterality: bilateral sciatica Qualified Code(s): M54.42 - Lumbago with sciatica, left side; M54.41 - Lumbago with sciatica, right side; G89.29 - Other chronic pain Category: Medical Code(s): M54.9 - Dorsalgia, unspecified Plan I will refill the patient's tramadol and provide a 6-month supply of this medication. Patient will return to clinic in 6 months for reevaluation of symptoms and plan of care. Patient has been instructed to contact the clinic with any concerns before the next appointment. Dr. Sr has reviewed this note and agrees with this plan of care. This note was dictated using voice recognition software and make contain errors or omissions. All injections are used with Lidocaine or Bupivacaine and Depo Medrol.
== END 2024-02-02 23:59 | disposition home or self-care (01) ==
PROVIDERS: PCP Family Medicine; Visit Provider Nurse Practitioner Family
DX: M25.572 Pain in left ankle and joints of left foot (principal); G89.29 Other chronic pain; M54.42 Lumbago with sciatica, left side; M54.41 Lumbago with sciatica, right side
CPT/HCPCS: 99212; G0463

== ENCOUNTER 2024-07-31 14:55 | Outpatient (POV) | payer BC, SELFPAY ==
[2024-07-31 15:23] VITALS: BP 157/90; PULSE 99; RESP 16; O2SAT 97; BMI 38.9
--- NOTE | 2024-07-31 16:17 | A.OFFVIS_ITS ---
[facility] Disclaimer: The information contained in this section may have been updated after the patient was seen, as this information can be updated by other users. Medical History Urinary tract infection Pneumonia Arthritis Anxiety Hypertension Surgical History H/O tubal ligation History of section Family History Mother Lymphoma Family history of macular degeneration Father Family history of Alzheimer's disease Grandmother Family history of stroke Other Family history of hypertension Social History Smoking Status: Never smoker second hand exposure: No alcohol intake: never substance use type: denies use current occupational status: other Travel in the last 8 weeks: None household members: spouse and children housing: house current occupation: [employer] current occupational exposures/hazards: No caffeine: Yes do you feel safe at home: Yes victim of physical abuse: No victim of emotional abuse: No victim of sexual abuse: No would you like helpful sources: No PM Subjective & Objective Subjective Subjective:: Patient is a pleasant 54-year-old female who presents today for 4-month follow- up. Today she rates her pain a 0 out of 10. She states overall she has been doing really well however she is complaining of just more generalized stiffness that does very day by day. Patient is currently managed with meloxicam 15 mg daily however states she has been on this for years and is not sure it is really doing a whole lot. Patient does also state that the tramadol 50 mg 4 times a day from our office is still working well. She denies any side effects. Her Maynor has been reviewed and is appropriate. Review of Systems: General: No recent weight changes, no fever, no sleep disturbances Respiratory: No cough, no shortness of air, no recurring pulmonary infections Cardiovascular/peripheral vascular: No chest pain, no palpitations, no edema, no shortness of breath Gastrointestinal: No new onset incontinence, normal bowel movements reported Genitourinary: No new onset incontinence Musculoskeletal: Low back pain, generalized stiffness Psychiatric: [Normal mood/affect] Neurological: [Denies weakness in extremities], [denies balance issues] Pain at rest (0-10 scale): 0 Objective Objective:: Physical Exam: General: Alert and oriented x3, no acute distress, pleasant and cooperative Lungs: Respirations even and unlabored, symmetrical chest expansion Eyes: PERRL Musculoskeletal: Flexion and extension of lumbar [spine] somewhat guarded secondary to pain Neurological: Speech clear, no gross sensory deficit Has patient had previous pain injection?: No Conservative treatment options previously tried: Prescription medications Length of treatment: Longer than 12 weeks Meds Home Medications and Allergies Home Medications ?Medication ?Instructions ?Recorded ?Confirmed ?Type bisoprolol 2.5 1 tab PO DAILY Hypertension 09/15/17 07/31/24 History mg-hydrochlorothiazide 6.25 mg tablet meloxicam 15 mg tablet 15 mg PO DAILY Pain 09/15/17 07/31/24 History lisinopril 20 mg tablet 40 mg PO DAILY blood pressure 11/05/17 07/31/24 History acetaminophen 650 mg 650 mg PO Q8H PRN Opioid Reversal 01/31/18 07/31/24 History tablet,extended release (Tylenol Arthritis Pain) sertraline 100 mg tablet 100 mg PO DAILY Depression 04/05/23 07/31/24 History gabapentin 100 mg capsule 100 mg PO TID PRN nerve pain 10 05/04/23 07/31/24 Rx days #30 caps ondansetron 4 mg disintegrating 4 mg PO Q6H nausea and vomiting 05/04/23 07/31/24 Rx tablet #30 tabs oxycodone 10 mg tablet 10 mg PO Q4H PRN painful procedure 05/10/23 07/31/24 Rx 7 days #42 tabs mupirocin 2 % topical ointment 1 applic topical BID cellulitis 3 06/22/23 07/31/24 Rx weeks #22 grams tramadol 50 mg tablet 50 mg PO QID Pain #120 tabs 02/02/24 07/31/24 Rx New Prescriptions to Start Prescriptions: Allergies Allergy/AdvReac Type Severity Reaction Status Date / Time No Known Allergies Allergy Verified 09/20/23 13:09 Assessment and Plan *Assessment and plan (1) Back pain: Status: Acute Qualifiers: Back pain location: low back pain Chronicity: chronic Back pain laterality: bilateral Sciatica presence: with sciatica Sciatica laterality: bilateral sciatica Qualified Code(s): M54.42 - Lumbago with sciatica, left side; M54.41 - Lumbago with sciatica, right side; G89.29 - Other chronic pain Category: Medical Code(s): M54.9 - Dorsalgia, unspecified Plan I will refill the patient's tramadol and provide a 6-month supply of this medication. Patient was also counseled if she does not feel like the meloxicam is working anymore that we will plan on trying diclofenac 75 mg twice a day. Risk and benefits were discussed with the patient and she was counseled to discontinue the meloxicam while she tries this medication and to take it with food to minimize GI upset. Patient denied any heart or kidney issues. Patient was counseled to call our office if the diclofenac does provide better relief and we will send additional refills to get her to her next 6-month follow-up. Patient agrees with this plan of care. Risks and benefits of the medication have been explained in detail to the patient. The patient does understand the risk of dependence on the medication when given over a prolonged period. Patient has been advised of risks of oversedation with the prescribed medication. Narcan has been offered to the paitent in the event of oversedation. Patient has been advised that a family member should also be educated regarding administration of Narcan. The patient has been advised to consult with his/her primary care provider and pharmacist regarding drug-drug interaction of medications currently prescribed. Patient has been prescribed a controlled substance after being counseled on the medication, medication safety, and possible side effects. Opioid contract was reviewed and signed by the patient, and that they have agreed to all of the terms set forth by our compliance program. A UDS is needed to verify patient's compliance with our office pain contract. This is ordered based off specific treatments related to chronic pain with the potential to abuse certain medications. Patient has been instructed to contact the clinic with any concerns before the next appointment. Dr. Sr has reviewed this note and agrees with this plan of care. This note was dictated using voice recognition software and make contain errors or omissions.
== END 2024-07-31 23:59 | disposition home or self-care (01) ==
PROVIDERS: PCP Family Medicine; Visit Provider Nurse Practitioner Family
DX: M54.42 Lumbago with sciatica, left side (principal); M54.41 Lumbago with sciatica, right side; G89.29 Other chronic pain
CPT/HCPCS: 99212; G0463

== ENCOUNTER 2025-01-25 14:10 | Outpatient (POV) | payer BC, SELFPAY ==
--- OUTSIDE RECORDS SUMMARY | 2024-05-02 11:05 | XMS_ITS ---
Author Organization [facility] Address [address] [place] [id number] Care Team Providers Care Procedural Nurse Name Role Phone Shamar Mirza Primary Care Provider [phone] Domingo Birmingham Unavailable [phone] Allergies No Known Allergies Results Component Value Reference Range Notes CBC Fingerstick (in house) Reviewed date:05/02/2024 04:06:05 PM Interpretation: Performing Lab: Notes/Report: wbc 6.1 3.5 - 10 lym 17.9 15 - 50 mid 4.4 2 - 15 gran 77.7 35 - 80 rbc 5.00 3.5 - 5.5 hgb 14.8 11.5 - 16.5 hct 45.6 35 - 55 mcv 91.2 75 - 100 mch 29.6 25 - 35 mchc 32.4 31 - 38 plat 278 100 - 400 REASON FOR VISIT possible sinus infection Medications Medication SIG (Take, Route, Frequency, Duration) Notes Start Date End Date Status Bisoprolol Fumarate 5 MG 1 tablet Orally Once a day; Duration: 90 days 01/20/2024 Active Cefuroxime Axetil 500 MG 1 tablet Orally every 12 hrs 05/02/2024 Active Meloxicam 15 MG 1 tab(s) orally once a day; Duration: 90 days Active Sertraline HCl 100 MG 1 tab(s) orally on ce a day; Duration: 90 days Active Rosuvastatin Calcium 10 MG 1 tablet Oral ly Once a day; Duration: 90 days 02/15/2024 Active Vitamin D3 250 MCG (66916 UT) 1 cap(s) orally 3 times a week 09/27/2018 Active traMADol HCl 50 MG 1 tab(s) orally ever y 4 hours as needed 07/06/2016 Active Lisinopril 40 MG 1 tablet Orally Once a day; Duration: 90 days 01/20/2024 Active Multivitamin - 1 tablet Orally Once a day; Duration: 30 day(s) Active Tylenol 8 Hour Arthritis Pain 650 MG 2 tab(s) orally every 6 hours Active Vital Signs Blood pressure systolic 120 mm Hg 05/02/20 24 Blood pressure diastolic 68 mm Hg 024 Heart Rate 70 /min 05/02/2024 Height 63 in 05/02/2024 Weight 225 lbs 05/02/2024 BMI 39.85 kg/m2 05/02/2024 Encounters Encounter Location Date Provider Diagnosis [facility] [address] [facility] [address] [place] [id number] 05/02/2024 Domingo Birmingham Acute sinusitis J01.90 Assessments Encounter Date Diagnosis (ICD Code) Assessment Notes Treatment Notes Treatment Clinical Notes Section Notes 05/02/2024 Acute sinusitis (ICD-10 - J01.90) Plan Of Treatment Medication Medication Name Sig Start Date Stop Date Notes Cefuroxime Axetil 500 MG 1 tablet Orally every 12 hrs 04/08 Next Appt Details Follow Up: prn, Reason: Progress Notes * SAUDMATTHEW NAUNB:1970 (54 yo F)Acc No.[id number]:05/02/2024 Progress Notes Patient: GEORGIANA BRUNSON Provider: Domingo Birmingham M.D. :1970 A ge:54 Y S ex:Female Date:05/02/2024 Address:[address] [place], [place] [address] [address] [place] [id number] Pcp:Shamar Mirza Subjective: * Chief Complaints: * 1 . Possible sinus infection. * HPI: E NT/respiratory: 54 year old female presents with c/o cough P t st that she was able to cough up some sputum this morning. Pt sts that it was green in color. c/o facial pain/pressure P t presents today with c/o nasal congestion and pressure. Pt sts that she started to feel bad around Wednesday. Pt sts that she feels some congestion in her chest as well. * ROS: D ERMATOLOGY: no R nicol. n o H edwin. G ASTROENTEROLOGY: no N ausea. n o V omiting. U ROLOGY: no D ifficulty urinating. n o B lood in urine. * Medical History: H ypertension, Migraine, Low Back Pain, MRI L-spine 2009 and 2015, Lumbar Spondylosis, Lumbar Disc Bulge, Lumbar Foraminal Stenosis, Menopause, Age 48. * Surgical History: C -section 1997, Tubal Ligation 11/12/1997, Heart Cath, Negative- [facility] 09/16/2017, colonoscopy 2022. * Hospitalization/Major Diagno stic Procedure: M igraine- [facility] 07/31/2016, [facility] * Family History: F ather: alive 89 yrs. M other: alive 81 yrs, HTN. P aternal Grand Father: .?Paternal Grand Mother: . M aternal Grand Father: . M aternal Grand Mother: . 1 sister(s) - healthy. 1 son(s) , 1 daughter(s) - healthy. . no heart disease or diabetes in family. * Social History: C URRENT TOBACCO USE S moking Status: Patient does NOT smoke, Former Smoker: No, Second hand smoke exposure: No. C affeine: yes, frequency:. Exercise: yes. Home smoke detector use: yes. Marital Status: . New since last visit: none. 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 Past smoking status: no. Occup. exposure: none. Recreational drug use: no. Alcohol: no. Travel ouside [place]: no. * Medications: T aking Multivitamin - Tablet 1 tablet Orally Once a day , Taking Tylenol 8 Hour Arthritis Pain 650 MG Tablet Extended Release 2 tab(s) orally every 6 hours , Taking Vitamin D3 250 MCG (92443 UT) Capsule 1 cap(s) orally 3 times a week , Taking traMADol HCl 50 MG Tablet 1 tab(s) orally every 4 hours as needed , Taking Lisinopril 40 MG Tablet 1 tablet Orally Once a day , Taking Bisoprolol Fumarate 5 MG Tablet 1 tablet Orally Once a day , Taking Rosuvastatin Calcium 10 MG Tablet 1 tablet Orally Once a day , Taking Meloxicam 15 MG Tablet 1 tab(s) orally once a day , Taking Sertraline HCl 100 MG Tablet 1 tab(s) orally once a day , Medication List reviewed and reconciled with the patient * Allergies: N .K.D.A. Objective: * Vitals: W t:225, Temp:98.3, BP:120/68, HR:70, Nurse:JENNY, Ht: 63, BMI:39.85. * Examination: E NT/Respiratory: General Appearance: N AD. E yes: P ERRLA, sclera clear. E ars: a uditory canals normal bilaterally, TM's WNL. N ose : congested. S inuses : tender maxillary sinuses bilaterally. O ral cavity : n o erythema or exudate seen on pharynx. N margaret : n o cervical lymphadenopathy. H eart : R RR, normal S1 S2, no murmurs. L ungs: c lear to auscultation bilaterally. Assessment: * Assessment: 1. A zee sinusitis - J01.90 (Primary) Plan: * Treatment: Value Reference Range w bc 6.1 3.5 - 10 * l ym 17.9 15 - 50 * m id 4.4 2 - 15 * g ran 77.7 35 - 80 * r bc 5.00 3.5 - 5.5 * h gb 14.8 11.5 - 16.5 * h ct 45.6 35 - 55 * m cv 91.2 75 - 100 * m ch 29.6 25 - 35 * m chc 32.4 31 - 38 * p lat 278 100 - 400 * Janette Saucedo 05/02/2024 3:0 5:38 PM > results reviewed w/ pt in office * Procedure Codes: 3 6416 CAPILLARY BLOOD DRAW, 10949 CBC WITH AUTO DIFF * Follow Up: p rn * Images: Billing Information: * Visit Code: 43039 Office Visit, Est Pt., Level 4. * Procedure Codes: 31164 CAPILLARY BLOOD DRAW. 44266 CBC WITH AUTO DIFF. * Electronic signature of Domingo Birmingham MD on 01/25/2025 at 02:24 PM EDT Sign off status: Pending * Provider: Domingo Birmingham M.D. Date: 07/02/2023 Generated for Juan constantino/Reji/eTransmitting on: 0 01/25/2025 02:24 PM EDT History and Physical Notes * HPI (History of Present Illness) Category Sub-Category Detail Notes Category Not es ENT/respiratory facial pain/pressure Pt presents today with c/o nasal congestion and pressure. Pt sts that she started to feel bad around Wednesday. Pt sts that she feels some congestion in her chest as well cough Pt st that she was a ble to cough up some sputum this morning. Pt sts that it was green in color Examination Category Sub-Category Detail Notes Category Not es ENT/Respiratory Oral cavity : no erythema or exudate s een on pharynx Sinuses : tender maxillary sin uses bilaterally Ears: auditory canals norm al bilaterally, TM's WNL Neck : no cervical lymphade nopathy Heart : RRR, normal S1 S2, n o murmurs Lungs: clear to auscultatio n bilaterally General Appearance: NAD Nose : congested Eyes: PERRLA, sclera clear
--- OUTSIDE RECORDS SUMMARY | 2024-11-02 12:00 | XMS_ITS ---
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 :1970 A ge:54 Y S ex:Female Date:11/02/2024 Address:[address] [place] [address] [address] [id number] Pcp:Shamar Mirza Subjective: * Chief Complaints: * 1 . 6 month f/u. 2. Needs labs, mammogram, colon cancer screening, & Tdap. * ROS: D ERMATOLOGY: no R nicol. n o H edwin. G ASTROENTEROLOGY: no N ausea. n o V omiting. n o D iarrhea.? U ROLOGY: no D ifficulty urinating. n o B lood in urine. * Medical History: H ypertension, Migraine, Low Back Pain, MRI L-spine 2009 and 2015, Lumbar Spondylosis, Lumbar Disc Bulge, Lumbar Foraminal Stenosis, Menopause, Age 48. * Surgical History: C -section 1997, Tubal Ligation 11/12/1997, Heart Cath, Negative- H 09/16/2017, colonoscopy 2022. * Hospitalization/Major Diagno stic Procedure: M igraine- [facility] 07/31/2016, Flu- [facility] 03/2019. * Family History: F ather: alive 90 yrs. M other: alive 82 yrs, HTN. P aternal Grand Father: .?Paternal [...] Alcohol: no. Travel ouside [place]: no. * Allergies: N .K.D.A. Objective: * Vitals: Assessment: Plan: * Treatment: * Images: Billing Information: * Visit Code: * Procedure Codes: * Electronic signature of Salinas Garza MD on 01/25/2025 at 02:23 PM EDT Sign off status: Pending * Provider: Salinas Garza M.D. Date: 0 11/02/2024 Generated for Juan constantino/Reji/Jay on: 0 01/25/2025 02:23 PM EDT
--- OUTSIDE RECORDS SUMMARY | 2024-12-13 07:45 | XMS_ITS ---
Author Organization [facility] Address [address] [place] [phone] Care Team Providers Care Network Cabler Name Role Phone Shamar Mirza Primary Care Provider Allergies No Known Allergies Results Component Value Reference Range Notes Glucose (In-House) Reviewed date:12/14/2024 09:37:26 AM Interpretation:135 Performing Lab: Notes/Report: 135 blood glucose 135 74 - 106 mg/dL Glycohemoglobin A1c (in hous e) Reviewed date:12/14/2024 09:37:26 AM Interpretation:5.8 Normal Performing Lab: Notes/Report: 5.8 Normal glycohemoglobin 5.8% 5 - 6.5 % P-Comprehensive Metabolic Pa cas (CMP) Reviewed date:12/14/2024 09:37:25 AM Interpretation:gluc 118, bun 26, Cr 1.25, gfr 50 Performing Lab: Notes/Report: Test performed by [facility] [address] [place] [address] , [address], [place] [address] Jeromy Lares MD, Mold Capper CLIA: [id number] Sodium 141 135-145 mmol/L Potassium 5.3 3.5-5.3 mmol/L Chloride 105 97-108 mmol/L CO2 24 20-32 mmol/L Glucose 118 65-99 mg/dL BUN 26 6-20 mg/dL Creatinine 1.25 0.50-1.00 mg/dL Calcium 9.8 8.6-10.4 mg/dL eGFR by Creatinine 50 >59 mL/min/1.73m2 Protein 7.4 6.0-8.3 g/dL Albumin 4.5 3.5-5.3 g/dL Alkaline Phosphatase 93 35-121 IU/L ALT (SGPT) 33 <5-47 IU/L AST (SGOT) 25 <5-40 IU/L Bilirubin, Total 0.6 <0.2-1.2 mg/dL A/G Ratio 1.6 1.1-2.5 P-Lipid Panel Reviewed date:12/14/2024 09:37:25 AM Interpretation:trigs 177 Performing Lab: Notes/Report: Test performed by [facility] [address] [place] [address] , [address], [place] [address] Jeromy Lares MD, Mold Capper CLIA: [id number] Cholesterol 139 <200 mg/dL Triglycerides 177 <150 mg/dL HDL Cholesterol 51 >39 mg/dL Cholesterol / HDL Ratio 2.73 0.00-4.44 Ratio Non-HDL Cholesterol 88 <130 mg/dL LDL Cholesterol (Calculation) 53 <130 mg/dL LDL Cholesterol Levels* Less than 100 mg/dL Optimal 100 to 129 mg/dL Near Optimal/ Above Optimal 130 to 159 mg/dL Borderline High 160 to 189 mg/dL High 190 mg/dL and above Very High * Categories as recommended by the 2004 ATPIII guidelines LDL/HDL Ratio 1.0 <3.3 Ratio LDL Cholesterol Patient History Test Date: 10/26/2023 LDL Results: 118 Units: mg/dL % Change: - Test Date: 02/10/2024 LDL Results: 116 Units: mg/dL % Change: -1% Test Date: 12/13/2024 LDL Results: 53 Units: mg/dL % Change: -54% P-TSH reflex to FT4 Reviewed date:12/14/2024 09:37:25 AM Interpretation:Normal Performing Lab: Notes/Report: Test performed by [facility] [address] [place] [address] , [place] [address] Jeromy Lares MD, Mold Capper CLIA: [id number] TSH reflex to FT4 0.71 0.43-5.25 mU/L P-Microalbumin/Creatinine, R andom Urine Sample Reviewed date:12/14/2024 09:37:25 AM Interpretation:Normal Performing Lab: Notes/Report: Test performed by [facility] [address] [place] [address] [address], [place] [address] Jeromy Lares MD, Mold Capper CLIA: [id number] Albumin/Creatinine Ratio, Urine 13 0-30 ug/m g Microalbumin, Urine, Random 1.9 Creatinine, Urine 148.4 P-Vitamin D 25-Hydroxy Reviewed date:12/14/2024 09:37:25 AM Interpretation:35 Performing Lab: Notes/Report: Test performed by [facility] [address] [place] [address] Dr[address], [place] [id number] Jeromy Lares MD, Mold Capper CLIA: [id number] Vitamin D 25-Hydroxy 35.0 30.0-100.0 ng/mL Interpretation of Vitamin D 25 OH: < 20 ng/mL - Deficiency 20 - 29 ng/mL - Insufficiency 30 - 100 ng/mL - Sufficiency > 100 ng/mL - Super-therapeutic- toxicity may occur above this level. Clinical correlation required. REASON FOR VISIT 6 months Medications Medication SIG (Take, Route, Frequency, Duration) Notes Start Date End Date Status Rosuvastatin Calcium 10 MG 1 tablet Oral ly Once a day; Duration: 90 days 02/15/2024 Active Bisoprolol Fumarate 5 MG Take 1 tablet b y mouth once daily; Duration: 90 days Active Lisinopril 40 MG Take 1 tablet by chris th once daily; Duration: 90 days Active Tylenol 8 Hour Arthritis Pain 650 MG 2 tab(s) orally every 6 hours Active Vitamin D3 250 MCG (79923 UT) 1 cap(s) orally 3 times a week 09/27/2018 Active traMADol HCl 50 MG 1 tab(s) orally ever y 4 hours as needed 07/06/2016 Active Diclofenac Sodium 75 MG 1 tablet as need ed Orally Twice a day Active Multivitamin - 1 tablet Orally Once a day; Duration: 30 day(s) Active Escitalopram Oxalate 10 MG 1 tablet Oral ly Once a day; Duration: 90 days 12/13/2024 Active Vital Signs Blood pressure systolic 110 mm Hg 12/14/19 25 Blood pressure diastolic 70 mm Hg 025 Heart Rate 70 /min 12/13/2024 Height 63 in 12/13/2024 Weight 223 lbs 12/13/2024 BMI 39.5 kg/m2 12/13/2024 Encounters Encounter Location Date Provider Diagnosis [facility] [address] [facility] [address] [place], [place] [phone] 12/13/2024 Sahmar Mirza Essential hypertensi on I10 ; Mixed hyperlipidemia E78.2 ; Hypertriglyceridemia E78.1 ; Impaired fasting glucose R73.01 ; Vitamin D deficiency E55.9 and Renal insufficiency N28.9 Assessments Encounter Date Diagnosis (ICD Code) Assessment Notes Treatment Notes Treatment Clinical Notes Section Notes 12/13/2024 Essential hypertensi on (ICD-10 - I10) 12/13/2024 Mixed hyperlipidemia (ICD-10 - E78.2) 12/13/2024 Hypertriglyceridemia (ICD-10 - E78.1) 12/13/2024 Impaired fasting glu cose (ICD-10 - R73.01) 12/13/2024 Vitamin D deficiency (ICD-10 - E55.9) 12/13/2024 Renal insufficiency (ICD-10 - N28.9) Plan Of Treatment Medication Medication Name Sig Start Date Stop Date Notes Rosuvastatin Calcium 10 MG 1 tablet Oral ly Once a day; Duration: 90 days 02/15/2024 Bisoprolol Fumarate 5 MG Take 1 tablet b y mouth once daily; Duration: 90 days Lisinopril 40 MG Take 1 tablet by th once daily; Duration: 90 days Sertraline HCl 100 MG 1 tab(s) orally once a day Escitalopram Oxalate 10 MG 1 tablet Oral ly Once a day; Duration: 90 days 12/13/2024 Next Appt Details Follow Up: via phone to repo rt test results,6 Months, Reason: Progress Notes * NAUN MAYSB:1970 (54 yo F)Acc No.[id number]:12/13/2024 Progress Notes Patient: GEORGIANA BRUNSON Provider: Colten Mirza M.D. :1970 A ge:54 Y S ex:Female Date:12/13/2024 Address:[address] [place] [address], Latoya guadarrama [id number] Subjective: * Chief Complaints: * 1 . 6 months. * HPI: C ardiology: 54 year old female presents with c/o Blood Pressure Elevated?Pt here for 6 mo f/u on hypertension. Pt states she is doing well and does not have any concerns.? c/o Hyperlipidemia P t is fasting today. * ROS: D ERMATOLOGY: no R nicol. [...] 1997, Tubal Ligation 11/12/1997, Heart Cath, Negative- [facility] 09/16/2017, colonoscopy 2022. * Hospitalization/Major Diagno stic Procedure: Vinay ba- [facility] ER 07/31/2016, Flu- [facility] 03/2019. * Family History: F ather: [...] ouside US: no. * Medications: T aking Diclofenac Sodium 75 MG Tablet Delayed Release 1 tablet as needed Orally Twice a day , Taking Multivitamin - Tablet 1 tablet Orally Once a day , Taking Tylenol 8 Hour Arthritis Pain 650 MG Tablet Extended Release 2 tab(s) orally every 6 hours , Taking Vitamin D3 250 MCG (48039 UT) Capsule 1 cap(s) orally 3 times a week , Taking traMADol HCl 50 MG Tablet 1 tab(s) orally every 4 hours as needed , Taking Rosuvastatin Calcium 10 MG Tablet 1 tablet Orally Once a day , Taking Sertraline HCl 100 MG Tablet 1 tab(s) orally once a day , Taking Lisinopril 40 MG Tablet Take 1 tablet by mouth once daily , Taking Bisoprolol Fumarate 5 MG Tablet Take 1 tablet by mouth once daily , Discontinued Meloxicam 15 MG Tablet 1 tab(s) orally once a day , Discontinued Cefuroxime Axetil 500 MG Tablet 1 tablet Orally every 12 hrs , Medication List reviewed and reconciled with the patient * Allergies: N .K.D.A. Objective: * Vitals: W t: 223, Temp: 98.1, BP: 110/70, HR: 70, Nurse: linda, Ht: 63, BMI:39.5. * Examination: C ardiology: General Appearance: p leasant, NAD. H EENT: u nremarkable. H eart sounds: R RR, normal S1, S2. L ungs: c lear, no rales or wheezes.?Extremities: bilateral trace pitting edema. P eripheral pulses: 2 plus bilateral.? Assessment: * Assessment: 1. E ssential hypertension - I10 (Primary) 2 . M ixed hyperlipidemia - E78.2 3 . H ypertriglyceridemia - E78.1 4 . I mpaired fasting glucose - R73.01 5 . V itamin D deficiency - E55.9 6 . R enal insufficiency - N28.9 Plan: * Treatment: Value Reference Range A /G Ratio 1.6 1.1-2.5 - * A lbumin 4.5 3.5-5.3 - g/dL * A lkaline Phosphatase 93 35-121 - IU/L * A LT (SGPT) 33 <5-47 - IU/L * A ST (SGOT) 25 <5-40 - IU/L * B ilirubin, Total 0.6 <0.2-1.2 - mg/dL * B UN 26 H 6-20 - mg/dL * C alcium 9.8 8.6-10.4 - mg/dL * C hloride 105 97-108 - mmol/L * C O2 24 20-32 - mmol/L * C reatinine 1.25 H 0.50-1.00 - mg/dL * G lucose 118 H 65-99 - mg/dL * P otassium 5.3 3.5-5.3 - mmol/L * S odium 141 135-145 - mmol/L * P rotein 7.4 6.0-8.3 - g/dL * e GFR by Creatinine 50 L >59 - mL/min/1.73m2 * Yvette Kenney 12/14/2024 09:3 7:18 AM EDT > See phone encounter ?LAB: P-Microalbumin/Creatinine, Random Urine Sample (Collection Date & Time - 12/13/2024 11:54 AM)?Normal* Value Reference Range A lbumin/Creatinine Ratio, Urine 13 0-30 - ug /mg * C reatinine, Urine 148.4 - mg/dL * M icroalbumin, Urine, Random 1.9 - mg/dL * Yvette Kenney 12/14/2024 09:3 7:18 AM EDT > See phone encounter 2.?Mixed hyperlipidemia? Refill Rosuvastatin Calcium Tablet, 10 MG, 1 tablet, Orally, Once a day, 90 days, 90, Refills 1. ?LAB: P-Comprehensive Metabolic Panel (CMP) (Collection Date & Time - 12/13/2024 11:54 AM)?gluc 118, bun 26, Cr 1.25, gfr 50* Value Reference Range A /G Ratio 1.6 1.1-2.5 - * A lbumin 4.5 3.5-5.3 - g/dL * A lkaline Phosphatase 93 35-121 - IU/L * A LT (SGPT) 33 <5-47 - IU/L * A ST (SGOT) 25 <5-40 - IU/L * B ilirubin, Total 0.6 <0.2-1.2 - mg/dL * B UN 26 H 6-20 - mg/dL * C alcium 9.8 8.6-10.4 - mg/dL * C hloride 105 97-108 - mmol/L * C O2 24 20-32 - mmol/L * C reatinine 1.25 H 0.50-1.00 - mg/dL * G lucose 118 H 65-99 - mg/dL * P otassium 5.3 3.5-5.3 - mmol/L * S odium 141 135-145 - mmol/L * P rotein 7.4 6.0-8.3 - g/dL * e GFR by Creatinine 50 L >59 - mL/min/1.73m2 * Yvette Kenney 12/14/2024 09:3 7:18 AM EDT > See phone encounter ?LAB: P-Lipid Panel (Collection Date & Time - 12/13/2024 11:54 AM)?trigs 177 * Value Reference Range C holesterol / HDL Ratio 2.73 0.00-4.44 - Ratio * C holesterol 139 <200 - mg/dL * H DL Cholesterol 51 >39 - mg/dL * L DL Cholesterol (Calculation) 53 <130 - mg/d L * L DL/HDL Ratio 1.0 <3.3 - Ratio * N on-HDL Cholesterol 88 <130 - mg/dL * T riglycerides 177 H <150 - mg/dL * Yvette Kenney 12/14/2024 09:3 7:18 AM EDT > See phone encounter ?LAB: P-TSH reflex to FT4 (Collection Date & Time - 12/13/2024 11:54 AM)? Normal* Value Reference Range T SH reflex to FT4 0.71 0.43-5.25 - mU/L * Yvette Kenney 12/14/2024 09:3 7:18 AM EDT > See phone encounter 3.?Impaired fasting glucose?LAB: Glucose (In-House) (Collection Date & Time - 12/13/2024)?135* Value Reference Range b lood glucose 135 74 - 106 mg/dL * Parisa Cabrera 12/13/2024 01:55:4 5 PM EDT > Yvette Kenney 12/14/2024 09:37:18 AM EDT > See phone encounter ?LAB: Glycohemoglobin A1c (in house) (Collection Date & Time - 12/13/2024)? 5.8 Normal* Value Reference Range g lycohemoglobin 5.8% 5 - 6.5 % * Parisa Cabrera 12/13/2024 01:56:2 1 PM EDT > Yvette Kenney 12/14/2024 09:37:18 AM EDT > See phone encounter 4.?Vitamin D deficiency?LAB: P-Vitamin D 25-Hydroxy (Collection Date & Time - 12/13/2024 11:54 AM)? 35* Value Reference Range V itamin D 25-Hydroxy 35.0 30.0-100.0 - ng/mL * Yvette Kenney 12/14/2024 09:3 7:18 AM EDT > See phone encounter 5.?Renal insufficiency?LAB: P-Comprehensive Metabolic Panel (CMP) (Collection Date & Time - 12/13/2024 11:54 AM)?gluc 118, bun 26, Cr 1.25, gfr 50* Value Reference Range A /G Ratio 1.6 1.1-2.5 - * A lbumin 4.5 3.5-5.3 - g/dL * A lkaline Phosphatase 93 35-121 - IU/L * A LT (SGPT) 33 <5-47 - IU/L * A ST (SGOT) 25 <5-40 - IU/L * B ilirubin, Total 0.6 <0.2-1.2 - mg/dL * B UN 26 H 6-20 - mg/dL * C alcium 9.8 8.6-10.4 - mg/dL * C hloride 105 97-108 - mmol/L * C O2 24 20-32 - mmol/L * C reatinine 1.25 H 0.50-1.00 - mg/dL * G lucose 118 H 65-99 - mg/dL * P otassium 5.3 3.5-5.3 - mmol/L * S odium 141 135-145 - mmol/L * P rotein 7.4 6.0-8.3 - g/dL * e GFR by Creatinine 50 L >59 - mL/min/1.73m2 * Yvette Kenney 12/14/2024 09:3 7:18 AM EDT > See phone encounter 6.?Others? Stop Sertraline HCl Tablet, 100 MG, 1 tab(s), orally, once a day;?Start Escitalopram Oxalate Tablet, 10 MG, 1 tablet, Orally, Once a day, 90 days, 90 Tablet, Refills 1.?? * Procedure Codes: 8 2950 GLUCOSE TEST, 34903 GLYCATED HEMOGLOBIN TEST, Modifiers: QW , 3044F HG A1C LEVEL LT 7.0%, 1036F TOBACCO NON-USER, G8783 BP SCR PRFRM RCMDD DEFIND SCR INTVL, G8752 MOST RECENT SYSTOLIC BP < 140MM HG, G8754 MOST RECENT DIASTOLIC BP < 90MM HG * Follow Up: v ia phone to report test results,6 Months * Images: Billing Information: * Visit Code: 10508 Office Visit, Est Pt., Level 4. * Procedure Codes: 02088 GLUCOSE TEST. 85447 GLYCATED HEMOGLOBIN TEST. Modifiers: QW 3044F HG A1C LEVEL LT 7.0%. 1036F TOBACCO NON-USER. G8783 BP SCR PRFRM RCMDD DEFIND SCR INTVL. G8752 MOST RECENT SYSTOLIC BP < 140MM HG. G8754 MOST RECENT DIASTOLIC BP < 90MM HG. * Electronic signature of Helena Mirza MD on 01/25/2025 at 02:23 PM EDT Sign off status: Pending * Provider: Colten Mirza M.D. Date: 0 12/13/2024 Generated for Juan constantino/Reji/Franciscoitting on: 0 01/25/2025 02:23 PM EDT History and Physical Notes * HPI (History of Present Illness) Category Sub-Category Detail Notes Category Not es Cardiology Blood Pressure Elevated Pt here for 6 mo f/u on hypertension. Pt states she is doing well and does not have any concerns Hyperlipidemia Pt is fasting today Examination Category Sub-Category Detail Notes Category Not es Cardiology Lungs: clear, no rales or wheezes HEENT: unremarkable Heart sounds: RRR, normal S1, S2 Extremities: bilateral trace scout ing edema Peripheral pulses: 2 plus bilateral General Appearance: pleasant, NAD
--- OUTSIDE RECORDS SUMMARY | 2025-01-25 14:23 | XMS_ITS | Clinical Summary ---
Author Organization [facility] Address [address] [place] [address] Phone Care Team Providers Care Groundman/Lineman Name Role Phone Shamar Mirza MD Primary Care Provider + [phone] Social History Tobacco Use Types Packs/Day Years Used Date Smoking Tobacco: Never Assessed Comments Unknown Sex and Gender Information Value Date Recorded Sex Assigned at Not on file Legal Sex Female 11:15 AM EDT Gender Identity Not on file Sexual Orientation Not on file Plan of Treatment Health Maintenance Due Date Last Done Comments Annual Wellness Exam 02/25/1971 DTaP/TDaP/Td (1 - Tdap) 02/25/1987 Hepatitis B Vaccine (1 of 3 - 19+ 3-dose series) 02/25/1987 Cervical Cancer Screening 02/25/1989 Pap Smear 02/25/1989 HPV/Pap Cotest 02/25/1998 Cologuard 02/25/2013 Colon Cancer Screening 02/25/2013 Colonoscopy 02/25/2013 FIT 02/25/2013 Sigmoidoscopy 02/25/2013 Virtual Colonography 02/25/2013 Pneumococcal Vaccine 50+ (1 of 1 - PCV) 02/25/2018 Zoster (1 of 2) 02/25/2018 COVID-19 Vaccine (2023-2 5 season) 2024 04/16/2021, 07/26/2020, 06/26/2020 Influenza Vaccine (#1) 2025 2, 04/01/2021, 04/17/2020 Breast Cancer Screening 03/12/2025 03/12/20 23, 03/13/2022, 03/14/2021 Meningococcal B Vaccine Aged Out No l onger eligible based on patient's age to complete this topic Procedures Procedure Name Priority Date/Time Associated Diagnosis Comments MM MAMMO DIGITAL RAFAEL SCREEN BILAT Routine 03/12/2023 3:40 PM EDT Screening mammogram for high-risk patient from Last 3 Months or Most Recently Relevant to Health Maintenance Results * MM MAMMO DIGITAL RAFAEL SCREEN BILAT (03/12/2023 3:40 PM EDT) Anatomical Region Laterality Modality Breast Bilateral Mammography 03/15/2023 12:2 7 PM EDT Impressions 03/15/2023 12:27 PM EDT Negative ([id number]) ~ RECOMMENDATION: Routine screening mammogram in 1 year. ~ DISCLAIMER * Any patient with a palpable abnormality, unexplained by breast imaging, should be managed on clinical basis by the attending physician. * Breast imaging has a false negative rate of 15%. * The patient was notified by mail of the results of this examination. *The patient's information was entered into a reminder system with a target due date for the next mammogram, in accordance with the [employer] and the Society of Breast Imaging recommendations. Narrative 03/15/2023 12:27 PM EDT Procedure:MM MAMMO DIGITAL RAFAEL SCREEN BILAT ~ Reason for exam: screening, asymptomatic. Z12.31-Encounter for screening mammogram for malignant neoplasm of vehkqt-MJA-12-CM ~ MM MAMMO DIGITAL RAFAEL SCREEN BILAT Bilateral CC and MLO view(s) were taken. There are scattered fibroglandular densities. Prior study comparison: Compared with prior studies the most recent being 03/13/22, 03/14/21 No mammographic evidence of malignancy. ~ Procedure Note Etienne Crawford III, MD - 03/15/2023 Procedure:MM MAMMO DIGITAL RAFAEL SCREEN BILAT ~ Reason for exam: screening, asymptomatic. Z12.31-Encounter for screening mammogram for malignant neoplasm of ghzmoj-THM-30-CM ~ MM MAMMO DIGITAL RAFAEL SCREEN BILAT Bilateral CC and MLO view(s) were taken. There are scattered fibroglandular densities. Prior study comparison: Compared with prior studies the most recentbeing 03/13/22, 03/14/21 No mammographic evidence of malignancy. ~ IMPRESSION: Negative ([id number]-4) ~ RECOMMENDATION: Routine screening mammogram in 1 year. ~ DISCLAIMER * Any patient with a palpable abnormality, unexplained by breast imaging, should be managed on clinical basis by the attending physician. * Breast imaging has a false negative rate of 15%. * The patient was notified by mail of the results of this examination. *The patient's information was entered into a reminder system with atarget due date for the next mammogram, in accordance with the [employer] and the Society of Breast Imaging recommendations. Shamar Mirza MD IM MAMMOGRAPHY ORDERABLES F inal Result from Last 3 Months or Most Recently Relevant to Health Maintenance Insurance E [place] [id number] [facility] Care Teams Groundman/Lineman Relationship Specialty Start Date End Date Shamar Mirza MD [address] [place] [address] [place] [phone] PCP - General Family Medicine 03/14/21
--- OUTSIDE RECORDS SUMMARY | 2025-01-25 14:23 | XMS_ITS | Clinical Summary ---
Author Organization [facility] Address [address] [place] [address] Care Team Providers Care Band Machine Operator Name Role Phone Shamar Mirza MD Primary Care Provider [phone] Allergies No known active allergies Medications meloxicam (MOBIC) 15 MG tablet Take 15 mg by mouth Daily. Active dexamethasone (DECADRON) 4 MG tablet Take 4 mg by mouth 2 (Two) Times a Day With Meals. Active acetaminophen (TYLENOL) 500 MG tablet Take 500 mg by mouth Every 6 (Six) Hours As Needed for mild pain (1-3). Active Active Problems Problem Noted Date Diagnosed Date Bilateral leg pain 03/25/2016 Chronic bilateral low back pain without sciatica 03/25/2016 Family History Relation Name Status Comments Daughter Alive Father Alive Maternal Grandfather Mother Alive Paternal Grandmother Sister Alive Son Alive Social History Tobacco Use Types Packs/Day Years Used Date Smoking Tobacco: Never Alcohol Use Standard Drinks/Week Comments Yes 0 (1 standard drink = 0.6 oz pur e alcohol) rare Abuse Screen Answer Date Recorded Unsafe at Home or Work/School Not on file Feels Threatened by Someone? Not on file 04/2023 Does Anyone Keep You from Co ntacting Others or Doint Things Outside the Home? Not on file 03/17/2023 Physical Sign of Abuse Present Not on file 1 Housing Stability Answer Date Recorded Current Living Arrangements Not on file 03/07 Potentially Unsafe Housing Conditions Not on yumiko e 03/17/2023 Family and Community Support Answer Michael e Recorded Help with Day-to-Day Activities Not on file 03/17/2023 Lonely or Isolated Not on file 03/17/2023 Employment Answer Date Recorded Do you want help finding or keeping work or a paty b? Not on file 03/17/2023 Disabilities Answer Date Recorded Concentrating, Remembering, or Making Decisions Difficulty Not on file 03/17/2023 Doing Errands Independently Difficulty Not on fi le 03/17/2023 Education Answer Date Recorded Help with school or training? Not on file Preferred Language Not on file 03/17/2023 Comments Unknown Sex and Gender Information Value Date Recorded Sex Assigned at Not on file Legal Sex Female 3:37 PM EDT Gender Identity Not on file Sexual Orientation Not on file Last Filed Vital Signs Vital Sign Reading Time Taken Comments Blood Pressure 130/78 06/15/2016 9:14 AM EST Pulse 77 06/15/2016 9:14 AM EST Temperature 36.8 C (98.2 F) 06/15/2016 9:14 AM EST Respiratory Rate - - Oxygen Saturation - - Inhaled Oxygen Concentration - - Weight 103 kg (227 lb) 06/15/2016 9:14 AM EST Height 162.6 cm (5' 4 ) 06/15/2016 9:14 AM EST Body Mass Index 38.96 06/15/2016 9:14 AM EST Plan of Treatment Health Maintenance Due Date Last Done Comments ANNUAL PHYSICAL 1970 Annual Gynecologic Pelvic and Breast Exam 1970 HEPATITIS C SCREENING 1970 TDAP/TD VACCINES (1 - Tdap) 02/25/1987 MAMMOGRAM 2008 COLOGUARD 02/25/2013 COLON CANCER SCREENING 5 YEAR SIGMOIDOSCOPY 02/25/2013 COLONOSCOPY 02/25/2013 COLORECTAL CANCER SCREENING 02/25/2013 CT COLONOGRAPHY 02/25/2013 FECAL OCCULT BLOOD TEST 02/25/2013 FIT Testing (1 year) 02/25/2013 Pneumococcal Vaccine 50+ (1 of 1 - PCV) 02/25/2018 ZOSTER VACCINE (1 of 2) 02/25/2018 COVID-19 Vaccine (1 - season) 2024 INFLUENZA VACCINE 03/07/2025 Insurance EMPLOYEE Care Teams Band Machine Operator Relationship Specialty Start Date End Date Shamar Mirza MD [address] [facility] [address] [facility] [address] [place] [address] PCP - General Family Medicine 01/30/16
--- OUTSIDE RECORDS SUMMARY | 2025-01-25 14:24 | XMS_ITS | Patient Health Record ---
Author Organization [facility] Address [address] [place] [id number] Care Team Providers Care Coil Binder Name Role Phone Shamar Mirza Primary Care Provider Salinas Garza Unavailable [phone] Domingo Birmingham Unavailable [phone] Allergies No Known Allergies Results Component Value [...] 50 Performing Lab: Notes/Report: Test performed by [facility] , [address], [place] [address] Jeromy Lares MD, [employer] CLIA: [id number] Sodium 141 135-145 mmol/L Potassium 5.3 3.5-5.3 [...] 177 Performing Lab: Notes/Report: Test performed by [facility], [address] , [place] [address] Jeromy Lares MD, [employer] CLIA: [id number] Cholesterol 139 <200 mg/dL Triglycerides 177 <150 [...] Interpretation:Normal Performing Lab: Notes/Report: Test performed by [facility] [address] [place], [place] [address] , [place] [address] Jeromy Lares MD, [employer] CLIA: [id number] TSH reflex to FT4 0.71 0.43-5.25 mU/L P-Microalbumin/Creatinine, R andom Urine Sample Reviewed date:12/14/2024 09:37:25 AM Interpretation:Normal Performing Lab: Notes/Report: Test performed by [facility] [address] [place], [place] [address] , [place] [address] Jeromy Lares MD, [employer] CLIA: [id number] Albumin/Creatinine Ratio, Urine 13 0-30 ug/m g Microalbumin, Urine, Random 1.9 Creatinine, Urine 148.4 P-Vitamin D 25-Hydroxy Reviewed date:12/14/2024 09:37:25 AM Interpretation:35 Performing Lab: Notes/Report: Test performed by [facility] [address] [place] [address] , [address], [place] [address] Jeromy Lares MD, [employer] CLIA: [id number] Vitamin D 25-Hydroxy 35.0 30.0-100.0 ng/mL Interpretation of Vitamin D 25 OH: < 20 ng/mL - Deficiency 20 - 29 ng/mL - Insufficiency 30 - 100 ng/mL - Sufficiency > 100 ng/mL - Super-therapeutic- toxicity may occur above this level. Clinical correlation required. Glycohemoglobin A1c (in hous e) Reviewed date:02/14/2024 03:13:08 PM Interpretation:5.5% Performing Lab: Notes/Report: 5.5% glycohemoglobin 5.5% 5 - 6.5 % P-Comprehensive Metabolic Pa cas (CMP) Reviewed date:02/14/2024 03:13:08 PM Interpretation:K+ 5.4, bun 24, creat 1.18, gfr 54 Performing Lab: Notes/Report: Test performed by [facility] [address] [place] [address] , [address], [place] [id number] Jeromy Lares MD, [employer] CLIA: [id number] Sodium 142 135-145 mmol/L Potassium 5.4 3.5-5.3 mmol/L Chloride 106 97-108 mmol/L CO2 28 22-32 mmol/L Glucose 94 65-99 mg/dL BUN 24 6-20 mg/dL Creatinine 1.18 0.50-1.00 mg/dL Calcium 9.5 8.6-10.4 mg/dL eGFR by Creatinine 54 >59 mL/min/1.73m2 Protein 6.7 6.0-8.3 g/dL Albumin 4.2 3.5-5.3 g/dL Alkaline Phosphatase 89 35-121 IU/L ALT (SGPT) 21 <5-47 IU/L AST (SGOT) 21 <5-40 IU/L Bilirubin, Total 0.5 <0.2-1.2 mg/dL A/G Ratio 1.7 1.1-2.5 P-Lipid Panel Reviewed date:02/14/2024 03:13:08 PM Interpretation:chol 224, trig 260, non-hdl 168 Performing Lab: Notes/Report: Test performed by [facility] [address], [place] [address] Jeromy Lares MD, [employer] MARRY: [id number] Cholesterol 224 <200 mg/dL Triglycerides 260 <150 mg/dL HDL Cholesterol 56 >39 mg/dL Cholesterol / HDL Ratio 4.00 0.00-4.44 Ratio Non-HDL Cholesterol 168 <130 mg/dL LDL Cholesterol (Calculation) 116 <130 mg/dL LDL Cholesterol Levels* Less than 100 mg/dL Optimal 100 to 129 mg/dL Near Optimal/ Above Optimal 130 to 159 mg/dL Borderline High 160 to 189 mg/dL High 190 mg/dL and above Very High * Categories as recommended by the 2004 ATPIII guidelines LDL/HDL Ratio 2.1 <3.3 Ratio LDL Cholesterol Patient History Test Date: 10/26/2023 LDL Results: 118 Units: mg/dL % Change: - Test Date: 02/10/2024 LDL Results: 116 Units: mg/dL % Change: -1% CBC Fingerstick (in house) Reviewed date:05/02/2024 04:06:05 [...] - 38 plat 278 100 - 400 Medications Medication SIG (Take, Route, Frequency, Duration) Notes Start Date End Date Status Tylenol 8 Hour Arthritis Pain 650 MG 2 tab(s) orally every 6 hours Active Vitamin D3 250 MCG (97294 UT) 1 cap(s) orally 3 times a week 09/27/2018 Active Rosuvastatin Calcium 10 MG 1 tablet Orally Once a day; Duration: 90 days 02/15/2024 Active traMADol HCl 50 MG 1 tab(s) orally every 4 hours as needed 07/06/2016 Active Bisoprolol Fumarate 5 MG Take 1 tablet by mouth once daily; Duration: 90 days Active Escitalopram Oxalate 10 MG 1 tablet Orally Once a day; Duration: 90 days 12/13/2024 Active Lisinopril 40 MG Take 1 tablet by mouth once daily; Duration: 90 days Active Jardiance 10 MG 1 tablet Orally Once a day; Duration: 90 days Please hold until patient requests Rx to be filled. 12/20/2024 Active Diclofenac Sodium 75 MG 1 tablet as needed Orally Twice a day Active Multivitamin - 1 tablet Orally Once a day; Duration: 30 day(s) Active Immunizations Vaccine Route Administration Date Status Comme nts xFlu shot-36 months and older IM Intramuscular 02/07/2009 Administered Tetanus Tdap-Adacel (over 7yrs) IM Intramuscular 02/07/2009 Administered Shingrix Unknown 04/12/2023 Administered ppd ID Intradermal 02/12/2009 Administered Hepatitis A (adult) IM Intramuscular 04/12/2018 Administer ed Fluzone Quad (6months&older) IM Intramuscular 04/12/2018 Administered Fluzone PF Quad (6-35 months) Unknown 04/01/2021 Administered Fluzone PF Quad (6-35 months) Unknown 04/14/2022 Administered Fluzone PF Quad (6-35 months) Unknown 04/12/2023 Administered COVID 19 Moderna Unknown 07/26/2020 Administered COVID 19 Moderna Unknown 04/16/2021 Administered Problems Problem Type SNOMED Code ICD Code Onset Dates Problem Status W/U Status Risk Notes Problem Vitamin D deficiency (04521622) Vitamin D deficiency (E55.9) Active confirmed Problem Essential hypertension (36692463) Essential hypertension (I10) Active confirmed Problem Morbid obesity (816305822) Morbid obesity (E66.01) Active confirmed Problem Hypertriglyceridemia (372255965) Hypertriglyceridemia (E78.1) Active confirmed Problem Arthropathy of spina l facet joint (734894893) Facet arthropathy (721.90) Active confirmed Problem Impaired fasting glucose (272116322) Impaired fasting glucose (R73.01) Active confirmed Problem Sciatica (80986801) Lumbago with sciatica, right side (M54.41) Active confirmed Problem Mixed hyperlipidemia (608780769) Mixed hyperlipidemia (E78.2) Active confirmed Problem Chronic pain (26816942) Other chronic pain (G89.29) Active confirmed Problem Sciatica (16640485) Lumbago with sciatica, left side (M54.42) Active confirmed Problem Urge incontinence of urine (40565893) Urge incontinence (N39.41) Active confirmed Problem Displacement of lumbar intervertebral disc without myelopathy (74630881) Bulging lumbar disc (M51.26) Active confirmed Problem Arthropathy of lumba r facet joint (229826635) Lumbar facet arthropathy (M46.96) Active confirmed Problem Obesity (000389923) Non morbid o besity, unspecified obesity type (E66.9) Active confirmed Problem Anxiety state (546440013) Anxiety disorder, unspecified type (F41.9) Active confirmed Problem Spinal stenosis of lumbar region (15264549) Foraminal stenosis of lumbar region (M99.83) Active confirmed Problem Menopausal symptom (31951776) Menopause syndrome (N95.1) Active confirmed Vital Signs Heart Rate 70 /min 12/13/2024 Blood pressure diastolic 70 mm Hg 12/13/2024 Height 63 in 12/13/2024 Blood pressure systolic 110 mm Hg 12/13/2024 Weight 223 lbs 12/13/2024 BMI 39.5 kg/m2 12/13/2024 Encounters Encounter Location Date Provider Diagnosis [facility] [address] [place], [place] [id number] 02/10/2024 Shamar Ridgeland Essential hypertensi on I10 ; Impaired fasting glucose R73.01 and Mixed hyperlipidemia E78.2 [facility] [address] [place], [place] [id number] 04/24/2024 Shamar Ridgeland Essential hypertensi on I10 ; Mixed hyperlipidemia E78.2 ; Hypertriglyceridemia E78.1 and Morbid obesity E66.01 [facility] [address] [place], [place] [id number] 05/02/2024 R Nehemiah Birmingham Acute sinusitis J01. 90 [facility] [address] [place], [place] [id number] 12/13/2024 Shamar Ridgeland Essential hypertensi on I10 ; Mixed hyperlipidemia E78.2 ; Hypertriglyceridemia E78.1 ; Impaired fasting glucose R73.01 ; Vitamin D deficiency E55.9 and Renal insufficiency N28.9 [facility] [address] [place], [place] [id number] 02/14/2024 Shamar Ridgeland [facility] [address] [place], [place] [id number] 12/14/2024 Shamar Ridgeland [facility] [address] [place], [place] [id number] 01/01/2025 Shamar Ridgeland [facility] [address] [facility] [address] [place], [place] [id number] 01/04/2025 Shamar Ridgeland [facility] [address] [place], [place] [id number] 01/08/2025 Shamar Ridgeland Assessments Encounter Date Diagnosis (ICD Code) Assessment Notes Treatment Notes Treatment Clinical Notes Section Notes 12/13/2024 Essential hypertensi on (ICD-10 - I10) 12/13/2024 Mixed hyperlipidemia (ICD-10 - E78.2) 04/24/2024 Essential hypertensi on (ICD-10 - I10) 04/24/2024 Mixed hyperlipidemia (ICD-10 - E78.2) 05/02/2024 Acute sinusitis (ICD -10 - J01.90) 04/24/2024 Hypertriglyceridemia (ICD-10 - E78.1) 02/10/2024 Essential hypertensi on (ICD-10 - I10) 12/13/2024 Hypertriglyceridemia (ICD-10 - E78.1) 12/13/2024 Impaired fasting glu cose (ICD-10 - R73.01) 02/10/2024 Impaired fasting glu cose (ICD-10 - R73.01) 04/24/2024 Morbid obesity (ICD- 10 - E66.01) 12/13/2024 Vitamin D deficiency (ICD-10 - E55.9) 02/10/2024 Mixed hyperlipidemia (ICD-10 - E78.2) 12/13/2024 Renal insufficiency (ICD-10 - N28.9) Plan Of Treatment No Information Insurance Providers Payer Name Payer Address Payer Phone Subscriber Number Group Number Insured Name Patient Relationship to Insured Coverage Start Date Coverage End Date [employer] [address] [place] [address] [id number] FRANTZ MAYS Spouse - patient is the spouse of the insured Medications Administered Medication Instructions Date of Administration Dosage Notes Bicillin LA 1,200,000 09/10/2006 Dexamethasone 04/22/2009 4 mg Dexamethasone 10/07/2009 4 mg Medical (General) History Medical History History ICD Code Hypertension Migraine Low Back Pain, MRI L-spine 2009 and 2015 Lumbar Spondylosis Lumbar Disc Bulge Lumbar Foraminal Stenosis Menopause, Age 48 Surgical History Surgery Date(Month/Year) 1998 Tubal Ligation 11/12/1997 Heart Cath, Negative- [facility] 09/16/2017 colonoscopy 2022 Hospitalization History Reason Date(Month/Year) Migraine- [facility] ER 07/31/2016 Flu- [facility] 03/2019
[2025-01-25 14:27] VITALS: BP 139/76; PULSE 96; RESP 14; O2SAT 96; BMI 39.8
--- NOTE | 2025-01-25 15:49 | EXP.PAIN.SOA ---
[facility] Disclaimer: The information contained in this section may have been updated after the patient was seen, as this information can be updated by other users. 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 She rates her pain today a 0 out of 10. She denies any new trauma or injury. She states that she is doing wonderful with the combination tramadol 50 mg 4 times a day and diclofenac 75 mg twice a day. She denies any side effects or changes to her pharmacy. Her Maynor has been reviewed and is appropriate. Review of Systems: General: No recent weight changes, no fever, no sleep disturbances Respiratory: No cough, no shortness of air, no recurring pulmonary infections Cardiovascular/peripheral vascular: No chest pain, no palpitations, no edema, no shortness of breath Gastrointestinal: No new onset incontinence, normal bowel movements reported Genitourinary: No new onset incontinence Musculoskeletal: Low back pain Psychiatric: [Normal mood/affect] Neurological: [Denies weakness in extremities], [denies balance issues] Pain at rest (0-10 scale): 0 Objective Objective:: Physical Exam: General: Alert and oriented x3, no acute distress, pleasant and cooperative Lungs: Respirations even and unlabored, symmetrical chest expansion Eyes: PERRL Musculoskeletal: Flexion and extension of lumbar [spine] within normal limits Neurological: Speech clear, no gross sensory deficit Has patient had previous pain injection?: No Conservative treatment options previously tried: Home exercise plan Length of treatment: Longer than 12 weeks Meds Home Medications and Allergies Home Medications ?Medication ?Instructions ?Recorded ?Confirmed ?Type bisoprolol 2.5 1 tab PO DAILY Hypertension 09/15/17 01/25/25 History mg-hydrochlorothiazide 6.25 mg tablet meloxicam 15 mg tablet 15 mg PO DAILY Pain 09/15/17 01/25/25 History lisinopril 20 mg tablet 40 mg PO DAILY blood pressure 11/05/17 01/25/25 History acetaminophen 650 mg 650 mg PO Q8H PRN Opioid Reversal 01/31/18 01/25/25 History tablet,extended release (Tylenol Arthritis Pain) sertraline 100 mg tablet 100 mg PO DAILY Depression 04/05/23 01/25/25 History gabapentin 100 mg capsule 100 mg PO TID PRN nerve pain 10 05/04/23 01/25/25 Rx days #30 caps ondansetron 4 mg disintegrating 4 mg PO Q6H nausea and vomiting 05/04/23 01/25/25 Rx tablet #30 tabs oxycodone 10 mg tablet 10 mg PO Q4H PRN painful procedure 05/10/23 01/25/25 Rx 7 days #42 tabs mupirocin 2 % topical ointment 1 applic topical BID cellulitis 3 06/22/23 01/25/25 Rx weeks #22 grams tramadol 50 mg tablet 50 mg PO QID Pain #120 tabs 07/31/24 01/25/25 Rx diclofenac sodium 75 mg 75 mg PO BID #60 tabs 08/28/24 01/25/25 Rx tablet,delayed release diclofenac sodium 75 mg See Rx Instructions .Route 09/26/24 01/25/25 Rx tablet,delayed release .COMPLEX #60 tabs New Prescriptions to Start Prescriptions: Allergies Allergy/AdvReac Type Severity Reaction Status Date / Time No Known Allergies Allergy Verified 09/20/23 13:09 Assessment and Plan *Assessment and plan (1) Paresthesia and pain of left extremity: Status: Acute Category: Medical Code(s): M79.609 - Pain in unspecified limb; R20.2 - Paresthesia of skin Plan I will refill the patient's tramadol and diclofenac and provide a 6-month supply of this medication. Patient will return to clinic in 6 months for reevaluation of symptoms and plan of care. Risks and benefits of the medication have been explained in detail to the patient. The patient does understand the risk of dependence on the medication when given over a prolonged period. Patient has been advised of risks of oversedation with the prescribed medication. Narcan has been offered to the paitent in the event of oversedation. Patient has been advised that a family member should also be educated regarding administration of Narcan. The patient has been advised to consult with his/her primary care provider and pharmacist regarding drug-drug interaction of medications currently prescribed. Patient has been prescribed a controlled substance after being counseled on the medication, medication safety, and possible side effects. Opioid contract was reviewed and signed by the patient, and that they have agreed to all of the terms set forth by our compliance program. A UDS is needed to verify patient's compliance with our office pain contract. This is ordered based off specific treatments related to chronic pain with the potential to abuse certain medications. Patient has been instructed to contact the clinic with any concerns before the next appointment. Dr. Sr has reviewed this note and agrees with this plan of care. This note was dictated using voice recognition software and make contain errors or omissions.
== END 2025-01-25 23:59 | disposition home or self-care (01) ==
PROVIDERS: PCP Family Medicine; Visit Provider Nurse Practitioner Family
DX: M79.609 Pain in unspecified limb (principal); R20.2 Paresthesia of skin; Z79.1 Long term (current) use of non-steroidal anti-inflammatories (NSAID); Z79.899 Other long term (current) drug therapy
CPT/HCPCS: 99212; G0463